=== PATIENT | female | born 1950 | race Caucasian/White ===

== ENCOUNTER 2016-11-29 19:56 | Emergency (ER) | payer MEDICARE, OTHER ==
[2016-11-29] MEDS ORDERED: VERA12TASA PO (20:08)
[2016-11-29] MEDS ORDERED: IBUP600T26 PO (20:08)
[2016-11-29] MEDS ORDERED: ASPI81CH PO (20:08)
[2016-11-29] MEDS ORDERED: LEVO200T4 PO (20:08)
[2016-11-29] MEDS ORDERED: MONT10TA2 PO (20:08)
[2016-11-29] MEDS ORDERED: SYMB16INH INH (20:08)
[2016-11-29] MEDS ORDERED: ALBU17IN INH (20:08)
[2016-11-29] MEDS ORDERED: BACL-67 PO (20:08)
[2016-11-29] MEDS ORDERED: ONE50TAB4 PO (20:08)
[2016-11-29] MEDS ORDERED: OMEP40CA2 PO (20:08)
[2016-11-29 20:41] LABS: MEAN CORPUSCULAR HEMOGLOBIN 33.4 pg (27.0-33.0); MEAN CORPUSCULAR HGB CONC 34.9 g/dl (32.0-36.5); MEAN CORPUSCULAR VOLUME 95.7 fl (80.0-96.0); RED CELL DISTRIBUTION WIDTH 12.2 % (11.5-14.5); WHITE BLOOD COUNT 11.1 K/mm3 (4.0-10.0)
[2016-11-29 20:48] LABS: AMYLASE 30 U/L (25-115)
[2016-11-29] MEDS ORDERED: ZOFR20TA PO (21:44)
[2016-11-29] MEDS ORDERED: NORC1TAB4 PO (21:44)
--- NOTE | 2016-11-29 21:50 | REPUSA ---
Clinical history: Right upper quadrant pain. Findings: The pancreas is limited in visualization secondary to overlying bowel gas, but appears rickey sly unremarkable. The liver demonstrates uniform echotexture and echogenicity, with no mass lesions. The gallbladder contains several gallstones. The common bile duct measures 4 mm and is within normal limits. The right kidney measures 11.3 cm in length and is unremarkable. A simple cyst in the right kidney measures 1.4 cm. There is no ascites. Impression: Cholelithiasis without evidence of acute cholecystitis. Simple right renal cyst.
[2016-11-29] MEDS ORDERED: NORCO 5/325MG TABLET (BULK FOR ED) PO ONE (22:00)
[2016-11-29 22:16] VITALS: BP 127/70
== END 2016-11-29 22:15 | disposition home or self-care (01) ==
LOC: EDBD 19:56 → M ED 20:33
DX: K80.20 Calculus of gallbladder without cholecystitis without obstruction (principal); N28.1 Cyst of kidney, acquired; I10 Essential (primary) hypertension; E07.9 Disorder of thyroid, unspecified; F17.210 Nicotine dependence, cigarettes, uncomplicated; Z79.899 Other long term (current) drug therapy; Z79.82 Long term (current) use of aspirin; Z79.51 Long term (current) use of inhaled steroids

== ENCOUNTER 2017-04-29 08:16 | Outpatient (CLI) | payer MEDICARE, OTHER ==
[~2017-04-29] VITALS: Ht 175.3 cm; Wt 93.9 kg
[~2017-04-29 08:16] MED LIST: ALBU17IN INH; ASPI81CH PO; BACL1TAB9 PO; IBUP-1022 PO; LEVO200T4 PO; MEMA1TAB2 PO; MONT10TA2 PO; NORC1TAB4 PO; OMEP40CA2 PO; ONE50TAB4 PO; ROPI2TAB24 PO; SYMB16INH INH; VERA12TASA PO; ZOFR20TA PO
[2017-04-29] MEDS ORDERED: NS 1,000 ML IV SCH (08:30)
[2017-04-29] MEDS ORDERED: PROPOFOL 500 MG/50 ML VIAL As Ordered ONE (08:59)
[2017-04-29] MEDS ORDERED: LIDOCAINE 2% INJ 100 MG/5 ML SDV (FOR ANES.) As Ordered ONE (09:08)
--- NOTE | 2017-04-29 10:03 | ROOR ---
Patient Name: Analy Massey Procedure Date: 04/29/2017 9:45 AM Date of : 1950 Age: 67 Room: [facility] Gender: Female Note Status: Finalized Procedure: Upper Endoscopy + Biopsies Indications: Heartburn, Exclusion of Aquino's esophagus Providers: Noam Arnold MD Referring MD: DAVE SAXENA DO Requestgage Provider: Medicines: Monitored Anesthesia Care Complications: No immediate complications. Procedure: Pre-Anesthesia Assessment: - The heart rate, respiratory rate, oxygen saturations, blood pressure, adequacy of pulmonary ventilation, and response to care were monitored throughout the procedure. The Endoscope was introduced through the mouth, and advanced to the second part of duodenum. The upper GI endoscopy was accomplished without difficulty. The patient tolerated the procedure well. Findings: The Z-line was irregular and was found 40 cm from the incisors. Multiple biopsies were obtained with cold forceps for evaluation to rule out Aquino's Esophagus randomly at the gastroesophageal junction. A medium-sized hiatal hernia was present. No other significant abnormalities were identified in a careful examination of the stomach. The exam of the duodenum was otherwise normal. Impression: - Z-line irregular, 40 cm from the incisors. - Medium-sized hiatal hernia. - Multiple biopsies were obtained at the gastroesophageal junction. - The examination was otherwise normal. Recommendation: - Patient has a contact number available for emergencies. The signs and symptoms of potential delayed complications were discussed with the patient. Return to normal activities tomorrow. Written discharge instructions were provided to the patient. - High fiber diet. - Discharge patient to home. - Continue present medications. - Await pathology results. - Telephone GI clinic for pathology results in 1 week. - Return to referring physician. - The findings and recommendations were discussed with the patient's family. Noam Arnold MD Noam Arnold MD 04/29/2017 10:02:37 AM This report has been signed electronically. Number of Addenda: 0 Note Initiated On: 04/29/2017 9:45 AM Estimated Blood Loss: Estimated blood loss: none.
--- NOTE | 2017-04-29 10:14 | ROOR ---
Patient Name: Analy Massey Procedure Date: 04/29/2017 9:47 AM Date of : 1950 Age: 67 Room: [facility] Gender: Female Note Status: Finalized Procedure: Total Colonoscopy to Cecum Indications: Screening for colorectal malignant neoplasm Providers: Noam Anrold MD Referring MD: DAVE SAXENA DO Requesting Provider: Medicines: Monitored Anesthesia Care Complications: No immediate complications. Procedure: Pre-Anesthesia Assessment: - The heart rate, respiratory rate, oxygen saturations, blood pressure, adequacy of pulmonary ventilation, and response to care were monitored throughout the procedure. The Colonoscope was introduced through the anus and advanced to the cecum, identified by appendiceal orifice and ileocecal valve. The colonoscopy was performed without difficulty. The patient tolerated the procedure well. The quality of the bowel preparation was good. Findings: The perianal and digital rectal examinations were normal. Non-bleeding internal hemorrhoids were found during retroflexion. The hemorrhoids were small and Grade I (internal hemorrhoids that do not prolapse). Multiple small and large-mouthed diverticula were found in the entire colon. The exam was otherwise without abnormality on direct and retroflexion views. Impression: - Non-bleeding internal hemorrhoids. - Diverticulosis in the entire examined colon. - The examination was otherwise normal on direct and retroflexion views. - No specimens collected. - The exam was otherwise normal to the cecum. Recommendation: - Patient has a contact number available for emergencies. The signs and symptoms of potential delayed complications were discussed with the patient. Return to normal activities tomorrow. Written discharge instructions were provided to the patient. - High fiber diet. - Discharge patient to home. - Continue present medications. - Repeat colonoscopy in 10 years for screening purposes. - Return to referring physician. - The findings and recommendations were discussed with the patient's family. Noam Arnold MD Noam Arnold MD 04/29/2017 10:13:48 AM This report has been signed electronically. Number of Addenda: 0 Note Initiated On: 04/29/2017 9:47 AM Estimated Blood Loss: Estimated blood loss: none.
[2017-04-29 10:43] VITALS: BP 156/90
== END 2017-04-29 10:47 | disposition home or self-care (01) ==
LOC: M OPP 08:16
PROVIDERS: ATTEND Internal Medicine Gastroenterology
DX: Z12.11 Encounter for screening for malignant neoplasm of colon (principal); K64.0 First degree hemorrhoids; K57.30 Diverticulosis of large intestine without perforation or abscess without bleeding; R12 Heartburn; K22.8 Other specified diseases of esophagus; K44.9 Diaphragmatic hernia without obstruction or gangrene; K21.9 Gastro-esophageal reflux disease without esophagitis; I10 Essential (primary) hypertension; E03.9 Hypothyroidism, unspecified; K59.00 Constipation, unspecified; R19.7 Diarrhea, unspecified; M19.90 Unspecified osteoarthritis, unspecified site; G43.909 Migraine, unspecified, not intractable, without status migrainosus; J44.9 Chronic obstructive pulmonary disease, unspecified; G47.30 Sleep apnea, unspecified; R39.89 Other symptoms and signs involving the genitourinary system; R25.2 Cramp and spasm; F17.210 Nicotine dependence, cigarettes, uncomplicated; Z79.82 Long term (current) use of aspirin; Z79.899 Other long term (current) drug therapy; Z83.71 Family history of colonic polyps
CPT/HCPCS: 43239; 88305; G0121

== ENCOUNTER → 2017-07-10 | Outpatient (REF) | payer MEDICARE, OTHER ==
[2017-07-10 12:15] LABS: BASO # 0.1 10^3/uL (0.0-0.2); BASO % 1.2 % (0.0-1.0); EOS # 0.2 10^3/uL (0.0-0.50); EOS % 2.7 % (0.0-3.0); IMMATURE GRANULOCYTE % 0.4 % (0-0); LYMPH # 1.6 10^3/uL (1.5-4.5); LYMPH % 19.2 % (24.0-44.0); MEAN CORPUSCULAR HGB CONC 32.6 g/dl (32.0-36.5); MEAN CORPUSCULAR VOLUME 95.2 fl (80.0-96.0); MONO # 0.8 10^3/uL (0.0-0.8); MONO % 10.3 % (0.0-5.0); NEUTROPHILS # 5.4 10^3/uL (1.8-7.7); NEUTROPHILS % 66.2 % (36.0-66.0); PLATELET COUNT, AUTOMATED 314 10^3/uL (150-450); RED CELL DISTRIBUTION WIDTH 12.6 % (11.5-14.5); WHITE BLOOD COUNT 8.1 10^3/uL (4.0-10.0)
[2017-07-10 12:27] LABS: ALBUMIN 3.5 GM/DL (3.2-5.2); ALBUMIN/GLOBULIN RATIO 1.09 (1.00-1.93); ALKALINE PHOSPHATASE 101 U/L (45-117); ALT/SGPT 30 U/L (12-78); ANION GAP 6 MEQ/L (8-16); AST/SGOT 16 U/L (7-37); BILIRUBIN,TOTAL 0.4 MG/DL (0.2-1.0); BLOOD UREA NITROGEN 18 MG/DL (7-18); CALCIUM LEVEL 8.7 MG/DL (8.8-10.2); CARBON DIOXIDE LEVEL 30 MEQ/L (21-32); CHLORIDE LEVEL 106 MEQ/L (98-107); CHOLESTEROL LEVEL 225 MG/DL (<200); GLOMERULAR FILTRATION RATE > 60.0 (>45); GLUCOSE, FASTING 92 MG/DL (80-110); POTASSIUM SERUM 4.7 MEQ/L (3.5-5.1); SODIUM LEVEL 142 MEQ/L (136-145); THYROXINE (T4) 13.7 UG/DL (4.5-12.0); TOTAL PROTEIN 6.7 GM/DL (6.4-8.2); TRIGLYCERIDES LEVEL 144 MG/DL (<150)
== END ==
LOC: M SFHCCLAY 08:09
PROVIDERS: ATTEND Family Medicine
DX: I10 Essential (primary) hypertension (principal); E78.5 Hyperlipidemia, unspecified; E03.9 Hypothyroidism, unspecified; R05 Cough

== ENCOUNTER → 2017-07-10 | Outpatient (CLI) | payer MEDICARE, OTHER ==
--- NOTE | 2017-07-10 09:13 | REP ---
Clinical: Cough. Technique: PA and lateral. Comparison: 07/27/2015. Findings: Mediastinum and cardiac silhouette are within normal limits and stable. Lung lee demonstrate chronic interstitial changes without focal consolidation, effusion or pneumothorax. Skeletal structures are intact. Impression: Chronic stable changes. No acute cardiopulmonary process identified. Signed by Raymond Weiner MD 07/10/2017 09:04 A
== END ==
LOC: M CLY 08:47
PROVIDERS: ATTEND Family Medicine
DX: R05 Cough (principal); J98.4 Other disorders of lung; I10 Essential (primary) hypertension; E78.5 Hyperlipidemia, unspecified; E03.9 Hypothyroidism, unspecified
CPT/HCPCS: 71020; 80053; 80061; 84436; 84443; 85025; 90662; G0008; G0463

== ENCOUNTER → 2018-01-08 | Outpatient (REF) | payer MEDICARE, OTHER ==
[2018-01-08 11:47] LABS: ALBUMIN 3.6 GM/DL (3.2-5.2); ALKALINE PHOSPHATASE 102 U/L (45-117); ALT/SGPT 23 U/L (12-78); ANION GAP 5 MEQ/L (8-16); AST/SGOT 14 U/L (7-37); BILIRUBIN,TOTAL 0.5 MG/DL (0.2-1.0); BLOOD UREA NITROGEN 13 MG/DL (7-18); CALCIUM LEVEL 8.5 MG/DL (8.8-10.2); CARBON DIOXIDE LEVEL 29 MEQ/L (21-32); CHLORIDE LEVEL 109 MEQ/L (98-107); CREATININE FOR GFR 0.77 MG/DL (0.55-1.30); GLOMERULAR FILTRATION RATE > 60.0 (>45); GLUCOSE, FASTING 93 MG/DL (70-100); POTASSIUM SERUM 4.7 MEQ/L (3.5-5.1); SODIUM LEVEL 143 MEQ/L (136-145); THYROID STIMULATING HORMONE 0.142 uIU/ML (0.358-3.740); TOTAL PROTEIN 6.6 GM/DL (6.4-8.2)
== END ==
LOC: M SFHCCLAY 08:27
DX: E03.9 Hypothyroidism, unspecified (principal); I10 Essential (primary) hypertension
CPT/HCPCS: 84443

== ENCOUNTER → 2018-01-19 | Outpatient (CLI) | payer MEDICARE, OTHER | LOC: M CLY 15:37 | DX: J40 Bronchitis, not specified as acute or chronic (principal); R91.8 Other nonspecific abnormal finding of lung field | CPT/HCPCS: 71046; G0463 ==

== ENCOUNTER → 2018-07-15 | Outpatient (REF) | payer MEDICARE, OTHER | LOC: M SFHCCLAY 13:30 | DX: I10 Essential (primary) hypertension (principal); R53.83 Other fatigue; E03.9 Hypothyroidism, unspecified; Z13.21 Encounter for screening for nutritional disorder ==

== ENCOUNTER → 2018-08-17 | Outpatient (REF) | payer MEDICARE, OTHER ==
[~2018-08-17] MED LIST changes: -ZOFR20TA PO; +ZOFR4TAB16 PO
[2018-08-17 17:22] LABS: BASO # 0.1 10^3/uL (0.0-0.2); BASO % 1.5 % (0.0-1.0); EOS # 0.1 10^3/uL (0.0-0.50); EOS % 1.1 % (0.0-3.0); HEMOGLOBIN 15.9 g/dl (12.0-15.5); LYMPH # 1.5 10^3/uL (1.5-4.5); LYMPH % 18.8 % (24.0-44.0); MEAN CORPUSCULAR HEMOGLOBIN 31.7 pg (27.0-33.0); MEAN CORPUSCULAR HGB CONC 33.1 g/dl (32.0-36.5); MEAN CORPUSCULAR VOLUME 95.6 fl (80.0-96.0); MONO # 0.8 10^3/uL (0.0-0.8); NEUTROPHILS # 5.4 10^3/uL (1.8-7.7); NEUTROPHILS % 68.2 % (36.0-66.0); PLATELET COUNT, AUTOMATED 276 10^3/uL (150-450); RED BLOOD COUNT 5.02 10^6/uL (4.00-5.40); WHITE BLOOD COUNT 7.9 10^3/uL (4.0-10.0)
[2018-08-17 17:27] LABS: ALBUMIN 3.6 GM/DL (3.2-5.2); ALT/SGPT 25 U/L (12-78); BILIRUBIN,TOTAL 0.3 MG/DL (0.2-1.0); BLOOD UREA NITROGEN 16 MG/DL (7-18); CALCIUM LEVEL 8.7 MG/DL (8.8-10.2); CARBON DIOXIDE LEVEL 30 MEQ/L (21-32); CHLORIDE LEVEL 107 MEQ/L (98-107); CHOLESTEROL LEVEL 220 MG/DL (<200); CHOLESTEROL RISK RATIO 4.489 (<5); CREATININE FOR GFR 0.76 MG/DL (0.55-1.30); GLOMERULAR FILTRATION RATE > 60.0 (>39); GLUCOSE, FASTING 88 MG/DL (70-100); HDL CHOLESTEROL 49 MG/DL (>40); LDL CHOLESTEROL 132 MG/DL (<100); NON-HDL-C 171 MG/DL; POTASSIUM SERUM 4.6 MEQ/L (3.5-5.1); SODIUM LEVEL 142 MEQ/L (136-145); THYROXINE (T4) 12.3 UG/DL (4.5-12.0); TOTAL PROTEIN 6.4 GM/DL (6.4-8.2); TRIGLYCERIDES LEVEL 197 MG/DL (<150)
[2018-08-17 17:29] LABS: TOTAL T3 101.9 NG/DL (60.0-181.0)
== END ==
LOC: M SFHCCLAY 11:04
PROVIDERS: ATTEND Family Medicine
DX: K62.5 Hemorrhage of anus and rectum (principal); I10 Essential (primary) hypertension; E03.9 Hypothyroidism, unspecified; E55.9 Vitamin D deficiency, unspecified

== ENCOUNTER → 2019-01-13 | Outpatient (REF) | payer MEDICARE, OTHER ==
[~2019-01-13] MED LIST changes: -ASPI81CH PO; +ASPI81CH49 PO; -NORC1TAB4 PO; +NORC1TAB7 PO
== END ==
LOC: M SFHCCLAY 13:46
PROVIDERS: ATTEND Family Medicine
DX: E03.9 Hypothyroidism, unspecified (principal)
CPT/HCPCS: 84443; G0463

== ENCOUNTER → 2020-01-17 | Outpatient (REF) | payer MEDICARE, OTHER ==
[~2020-01-17] MED LIST changes: +MEMA10TA19 PO; -MEMA1TAB2 PO; -MONT10TA2 PO; +MONT10TA4 PO; -OMEP40CA2 PO; +OMEP40CA97 PO
[2020-01-17 11:48] LABS: BASO # 0.1 10^3/uL (0.0-0.2); BASO % 1.6 % (0.0-1.0); EOS # 0.2 10^3/uL (0.0-0.5); EOS % 2.3 % (0.0-3.0); HEMATOCRIT 51.4 % (36.0-47.0); HEMOGLOBIN 16.9 g/dl (12.0-15.5); LYMPH # 1.2 10^3/uL (1.5-5.0); LYMPH % 16.3 % (24.0-44.0); MEAN CORPUSCULAR HEMOGLOBIN 32.6 pg (27.0-33.0); MEAN CORPUSCULAR HGB CONC 32.9 g/dl (32.0-36.5); MONO # 0.8 10^3/uL (0.0-0.8); MONO % 11.1 % (0.0-5.0); NEUTROPHILS % 68.4 % (36.0-66.0); PLATELET COUNT, AUTOMATED 288 10^3/uL (150-450); RED BLOOD COUNT 5.19 10^6/uL (4.00-5.40); WHITE BLOOD COUNT 7.4 10^3/uL (4.0-10.0)
[2020-01-17 12:29] LABS: ALBUMIN 3.4 GM/DL (3.2-5.2); ALT/SGPT 58 U/L (12-78); BILIRUBIN,TOTAL 0.5 MG/DL (0.2-1.0); BLOOD UREA NITROGEN 18 MG/DL (7-18); CALCIUM LEVEL 8.7 MG/DL (8.8-10.2); CARBON DIOXIDE LEVEL 32 MEQ/L (21-32); CHLORIDE LEVEL 107 MEQ/L (98-107); CREATININE FOR GFR 0.79 MG/DL (0.55-1.30); GLOMERULAR FILTRATION RATE > 60.0 (>39); GLUCOSE, FASTING 79 MG/DL (70-100); POTASSIUM SERUM 4.7 MEQ/L (3.5-5.1); SODIUM LEVEL 143 MEQ/L (136-145); TOTAL PROTEIN 6.4 GM/DL (6.4-8.2)
== END ==
LOC: M SFHCCLAY 08:26
PROVIDERS: ATTEND Family Medicine
DX: I10 Essential (primary) hypertension (principal); E03.9 Hypothyroidism, unspecified

== ENCOUNTER → 2020-02-07 | Outpatient (CLI) | payer MEDICARE, OTHER ==
--- NOTE | 2020-02-07 16:01 | REP ---
PET/CT: HISTORY: Lung nodule COMPARISONS: Comparison CT study of the chest January 18, 2020. TECHNIQUE: 48 minutes following the intravenous injection of a 8.79 mCi dose of F-18 FDG, three-dimensional PET scintigraphy is acquired from the skull base to the proximal thighs. Triplanar noncontrast CT scanning is acquired through the same anatomic range for attenuation correction, and image registration with scan parameters optimized to minimize radiation exposure to the patient. PET scintigraphy and CT datasets were fused and displayed on a workstation with multiplanar and projection display capability. PET/CT FINDINGS: The 10 mm nodule seen in the right lung apex does show hypermetabolic uptake, maximum standard uptake value is 3.21. There is no other abnormal hypermetabolic pulmonary parenchymal uptake. No abnormal hilar or mediastinal timmy uptake is seen. Head and neck soft tissues show a normal variant skeletal muscle uptake. In the abdomen and pelvis, there is normal distribution of tracer to the liver, spleen, gastrointestinal, and genitourinary tracts. No other abnormal hypermetabolic uptake is seen. IMPRESSION: Mildly hypermetabolic uptake is seen in the 10 mm nodule in the right upper lobe. Malignancy cannot be excluded. Followup CT study suggested in 3-4 months. Electronically Signed by Dank Gleason MD 02/07/2020 04:03 P
== END ==
LOC: M PLARAD 12:38
PROVIDERS: ATTEND Internal Medicine Pulmonary Disease
DX: R91.1 Solitary pulmonary nodule (principal)
CPT/HCPCS: 78815; A9552

== ENCOUNTER → 2020-02-21 | Outpatient (REF) | payer MEDICARE, OTHER ==
[2020-02-21 16:38] LABS: C REACTIVE PROTEIN QUANTITATIV 0.54 MG/DL (0.00-0.30); RHEUMATOID FACTOR QUANT < 10.0 IU/ML (<15.0); THYROID STIMULATING HORMONE 0.249 uIU/ML (0.358-3.740)
[2020-02-21 16:44] LABS: VITAMIN B12 LEVEL 1408 PG/ML (247-911)
[2020-02-21 16:45] LABS: FOLATE 22.6 NG/ML (>5.4)
[2020-02-24 01:07] LABS: ANA (HEP2) Negative (.); CYCLIC CITRULLINATED PEPTIDE 14 units (0-19)
== END ==
LOC: M SFHCCLAY 11:35
PROVIDERS: ATTEND Family Medicine
DX: R53.83 Other fatigue (principal); M79.606 Pain in leg, unspecified

== ENCOUNTER → 2020-02-28 | Outpatient (CLI) | payer MEDICARE, OTHER ==
--- NOTE | 2020-02-28 11:15 | PFTRPT ---
Height: 67.50 Inches Weight: 208.00 Lbs BSA: 2.07 Diagnosis: R91.1 DATE OF PROCEDURE: 02/28/2020 ORDERED BY: Dr. Barrios Spirometry: Pre and post bronchodilator study of excellent technical quality. Forced vital capacity reduced. FEV1 out of proportion. Obstructive index is, therefore, reduced. Flow Volume Loop: Expiratory limb of the flow volume loop consistent with very significant flow rate limitation. No significant bronchodilator response identified. Lung Volumes: Total lung capacity elevated. Residual volume consistent with air trapping. Diffusing Capacity: Diffusing capacity significantly reduced but does correct for alveolar volume. Hemoglobin: Hemoglobin acceptable at 15.5. Airway Mechanics: Airway resistance and conductance are normal. IMPRESSION: Severe obstructive ventilatory impairment with underlying air trapping. Diffusing capacity impairment and appropriate for alveolar volume. No bronchodilator response. Please correlate clinically. MTDD
== END ==
LOC: M CARPUL 10:47
PROVIDERS: ATTEND Internal Medicine Pulmonary Disease
DX: R91.1 Solitary pulmonary nodule (principal)

== ENCOUNTER 2020-05-21 01:50 | Emergency (ER) | payer MEDICARE, OTHER ==
[~2020-05-21] VITALS: Ht 172.7 cm; Wt 96.4 kg
[2020-05-21 02:41] LABS: BASO # 0.1 10^3/uL (0.0-0.2); BASO % 0.4 % (0.0-1.0); EOS # 0.1 10^3/uL (0.0-0.5); EOS % 0.4 % (0.0-3.0); HEMATOCRIT 55.1 % (36.0-47.0); HEMOGLOBIN 17.7 g/dl (12.0-15.5); LYMPH # 0.8 10^3/uL (1.5-5.0); LYMPH % 4.2 % (24.0-44.0); MEAN CORPUSCULAR HEMOGLOBIN 31.6 pg (27.0-33.0); MEAN CORPUSCULAR HGB CONC 32.1 g/dl (32.0-36.5); MEAN CORPUSCULAR VOLUME 98.2 fl (80.0-96.0); MONO # 1.4 10^3/uL (0.0-0.8); MONO % 7.4 % (0.0-5.0); NEUTROPHILS # 16.2 10^3/uL (1.5-8.5); NEUTROPHILS % 87.2 % (36.0-66.0); PLATELET COUNT, AUTOMATED 276 10^3/uL (150-450); RED BLOOD COUNT 5.61 10^6/uL (4.00-5.40); WHITE BLOOD COUNT 18.6 10^3/uL (4.0-10.0)
[2020-05-21] MEDS ORDERED: ISOVUE-370 76% 100ML VIAL As Ordered ONE (03:42)
[2020-05-21] MEDS ORDERED: NS 1,000 ML IV ONE (03:45)
[2020-05-21 03:57] LABS: ALBUMIN 3.7 GM/DL (3.2-5.2); BILIRUBIN,DIRECT 0.3 MG/DL (0.0-0.2); BILIRUBIN,TOTAL 0.5 MG/DL (0.2-1.0); TOTAL PROTEIN 7.2 GM/DL (6.4-8.2)
--- NOTE | 2020-05-21 04:42 | REPVR ---
PROCEDURE INFORMATION: Exam: CT Abdomen And Pelvis With Contrast Exam date and time: 05/21/2020 3:51 AM Age: 70 years old Clinical indication: Abdominal pain; Additional info: Periumbilical pain, rule out abdominal infection TECHNIQUE: Imaging protocol: Computed tomography of the abdomen and pelvis with intravenous contrast. Radiation optimization: All CT scans at this facility use at least one of these dose optimization techniques: automated exposure control; mA and/or kV adjustment per patient size (includes targeted exams where dose is matched to clinical indication); or iterative reconstruction. Contrast material: ISO 370; Contrast volume: 100 ml; Contrast route: INTRAVENOUS (IV); COMPARISON: CT ABD/PELVIS W/ CONTRAST - OUTSIDE PRIOR 11/29/2016 4:35 PM FINDINGS: Lungs: Minimal bibasilar fibro-atelectatic change with interstitial coarsening and minimal bullous change. Liver: Normal. No mass. Gallbladder and bile ducts: Gallbladder wall thickening and possible septation at the fundus which may reflect adenomyomatosis. Pancreas: Normal. No ductal dilation. Spleen: Normal. No splenomegaly. Adrenals: Right adrenal nodule measuring 1.7 x 2.1 x 1.8 cm with a Hounsfield measurement of 50. Left adrenal fullness with question of a nodule measuring 12 mm. Kidneys and ureters: Small nonobstructing left renal calculus. There are bilateral renal cysts measuring up to 15 mm on the right which appear to be simple cysts with peripelvic cysts on the left. No follow-up imaging is recommended. Stomach and bowel: There is colonic diverticulosis without evidence of diverticulitis. There is a diverticulum projecting from the proximal duodenal sweep. Appendix: There are no changes of appendicitis. A normal appendix is not seen. Intraperitoneal space: Unremarkable. No free air. No significant fluid collection. Vasculature: There is mild calcification of the abdominal aorta with extension into the iliac arteries. Lymph nodes: Unremarkable. No enlarged lymph nodes. Urinary bladder: Unremarkable as visualized. Reproductive: Status post hysterectomy. Bones/joints: Degenerative disc changes of the lumbar spine with some facet arthropathy. Soft tissues: Unremarkable. IMPRESSION: 1. Colonic diverticulosis without diverticulitis. 2. Minimal bibasilar fibro-atelectatic change with interstitial coarsening and minimal bullous change. 3. Localized gallbladder wall thickening with possible septation at the fundus suggesting adenomyomatosis. 4. Small nonobstructing left renal calculus. 5. Right adrenal nodule measuring 17 x 21 x 18 mm which is unchanged from 11/29/2016. No follow-up is recommended. Lobular fullness of the left adrenal is also similar with no follow-up. 6. Status post hysterectomy. Electronically signed by: Martin Estrada On 05/21/2020 04:42:15 AM
[2020-05-21 06:15] VITALS: BP 149/73
== END 2020-05-21 06:38 | disposition home or self-care (01) ==
LOC: M ED 01:50
DX: R10.9 Unspecified abdominal pain (principal); J44.9 Chronic obstructive pulmonary disease, unspecified; F17.200 Nicotine dependence, unspecified, uncomplicated; Z79.899 Other long term (current) drug therapy; Z79.82 Long term (current) use of aspirin; Z79.51 Long term (current) use of inhaled steroids
CPT/HCPCS: 74177; 80047; 80076; 81001; 83690; 85025; 93041; 96360; 96361; 99285; Q9967

== ENCOUNTER → 2020-05-28 | Outpatient (REF) | payer MEDICARE, OTHER ==
[2020-05-28 11:45] LABS: BASO # 0.1 10^3/uL (0.0-0.2); BASO % 0.9 % (0.0-1.0); EOS # 0.1 10^3/uL (0.0-0.5); EOS % 1.1 % (0.0-3.0); HEMATOCRIT 52.5 % (36.0-47.0); HEMOGLOBIN 16.8 g/dl (12.0-15.5); LYMPH # 1.5 10^3/uL (1.5-5.0); LYMPH % 16.3 % (24.0-44.0); MEAN CORPUSCULAR HEMOGLOBIN 30.4 pg (27.0-33.0); MEAN CORPUSCULAR VOLUME 95.1 fl (80.0-96.0); MONO # 0.9 10^3/uL (0.0-0.8); MONO % 10.2 % (0.0-5.0); NEUTROPHILS # 6.4 10^3/uL (1.5-8.5); NEUTROPHILS % 71.1 % (36.0-66.0); PLATELET COUNT, AUTOMATED 325 10^3/uL (150-450); RED BLOOD COUNT 5.52 10^6/uL (4.00-5.40)
[2020-05-28 12:35] LABS: ALBUMIN 3.4 GM/DL (3.2-5.2); ALT/SGPT 90 U/L (12-78); BILIRUBIN,TOTAL 0.5 MG/DL (0.2-1.0); BLOOD UREA NITROGEN 20 MG/DL (7-18); CALCIUM LEVEL 9.1 MG/DL (8.8-10.2); CARBON DIOXIDE LEVEL 31 MEQ/L (21-32); CHLORIDE LEVEL 105 MEQ/L (98-107); CREATININE FOR GFR 0.72 MG/DL (0.55-1.30); GLOMERULAR FILTRATION RATE > 60.0 (>39); GLUCOSE, FASTING 87 MG/DL (70-100); POTASSIUM SERUM 4.9 MEQ/L (3.5-5.1); SODIUM LEVEL 137 MEQ/L (136-145); TOTAL PROTEIN 6.6 GM/DL (6.4-8.2)
[2020-05-28 12:38] LABS: HEPATITIS B SURFACE ANTIGEN NEGATIVE (NEGATIVE)
[2020-05-28 13:05] LABS: HEPATITIS C VIRUS ABY INDEX 0.1 INDEX (<0.8)
[2020-05-28 13:06] LABS: HEPATITIS B CORE ANTIBODY IGM NEGATIVE (NEGATIVE)
[2020-05-28 13:08] LABS: HEPATITIS A ANTIBODY IGM NEGATIVE (NEGATIVE)
== END ==
LOC: M SFHCCLAY 09:20
PROVIDERS: ATTEND Family Medicine
DX: R10.13 Epigastric pain (principal); R79.89 Other specified abnormal findings of blood chemistry; D72.825 Bandemia
CPT/HCPCS: 80053; 85025; 86705; 86709; 86803; 87340; G0463

== ENCOUNTER → 2020-11-27 | Outpatient (CLI) | payer MEDICARE, OTHER ==
[~2020-11-27] MED LIST changes: +MONT10TA10 PO; -MONT10TA4 PO
--- NOTE | 2020-11-27 13:54 | REP ---
INDICATION: SOLITARY PULMONARY NODULE. COMPARISON: Multiple the latest 08/27/2020 TECHNIQUE: Noncontrast enhanced standard helical technique FINDINGS: Once again, there is a spiculated nodule in the right upper lobe 2.9 x 2.1 by 2 centimeters and has increased in its degree of spiculation. A small developing satellite nodule may also be present. Other scattered asymmetric densities are seen throughout the lung lee which appears stable. Emphysematous changes are again noted status quo. There is no significant change in appearance of the mediastinum or pulmonary keri. There is no significant change in appearance of the imaged upper abdomen or imaged osseous structures. There are no pleural or pericardial effusions. IMPRESSION: Right upper lobe spiculated nodule has increased in size. <Electronically signed by Hemal Pope > 11/27/20 [id number]
== END ==
LOC: M RAD 13:16
PROVIDERS: ATTEND Internal Medicine Pulmonary Disease
DX: R91.1 Solitary pulmonary nodule (principal)

== ENCOUNTER → 2020-12-12 | Outpatient (CLI) | payer MEDICARE, OTHER ==
[~2020-12-12] MED LIST changes: +B12-1CHW PO; +PRESCAP PO
--- NOTE | 2020-12-12 16:01 | RADONC.CN ---
Radiation Oncology Hx/Consult Radiation Oncology Consult Date of Service: December 12, 2020 Pt Identifier Analy Massey is a 70 year old female current smoker with a presumed [id number] NSCLC of the RUL. She is seen for consideration of SBRT to address the lesion. Diagnosis/Treatment History Oncologic History Follows with Dr. Barrios for COPD and HUBERT Noted to have a 1 cm RUL nodule on CT chest from 01/18/20. This was followed with a PET-CT on 02/07/20 which showed uptake the nodule. 08/27/20 CT chest showed growth. Follow up CT chest on 11/27/20 showed the lesion had grown to 2.9 x 2.1 x 2 cm with increased spiculation. Biopsy was deemed infeasible due to extensive emphysematous changes and location posterior to the scapula. She was referred for empiric treatment with SBRT. 02/28/20 PFTs FVC 2.42 71% pred FEV1 0.99 39% pred FEV1/FVC 54% pred DLCO 51% pred Interval History She reports intermittent and sometimes severe HILLMAN. She has minimal SOB at rest. She is able to walk ~ 100 ft (such as in from the parking lot for her visit today) without dyspnea. She has a chronic cough, not very productive. She gets chest pain sometimes from her HILLMAN. She has HUBERT and is compliant with CPAP. She continues to smoke has cut down to 1 ppd. Not ready for an earnest quit attempt today. Does not wear O2 at home or nocturnal. 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 Allergies / Meds Allergies: Coded Allergies: No Known Allergies (Unverified , 05/21/20) Home Meds Reported Medications Mecobalamin (B12 Active) 1,000 Mcg Tab.chew, 1000 MCG PO 12/12/20 Vit A/Vit C/Vit E/Zinc/Copper (Preservision Areds Softgel) 1 Each Capsule, 1 CAP PO DAILY, CAP 12/12/20 Ropinirole HCl (Ropinirole ER) 2 Mg Tab, 2 MG PO DAILY, TAB 04/22/17 Memantine HCl (Memantine HCl) 10 Mg Tab, 10 MG PO BID, TAB 04/22/17 Albuterol Sulfate (Ventolin Hfa) 200 Puff/8 Gm Aers, 1 PUFF INH BID PRN for SHORTNESS OF BREATH, INHALER 11/29/16 Levothyroxine Sodium (LEVOTHYROXINE SODIUM) 200 Mcg Tab, 250 MCG PO DAILY, TAB 11/29/16 Budesonide/Formoterol (Symbicort 160-4.5 Mcg Inhaler) 60 Puff/Inhaler Aers, 2 PUFF INH BID, INHALER 11/29/16 One Daily Adults 50+ (One Daily Adults 50+) 1 Tab Tab, 1 TAB PO DAILY, TAB 11/29/16 Omeprazole (Omeprazole) 40 Mg Cap, 20 MG PO DAILY, CAP 11/29/16 Montelukast Sodium (Montelukast Sodium) 10 Mg Tab, 10 MG PO DAILY, TAB 11/29/16 Ibuprofen (Ibuprofen) 600 Mg Tab, 800 MG PO Q4H PRN for PAIN, #30 TAB 11/29/16 Baclofen (Baclofen) 20 Mg Tab, 20 MG PO DAILY, TAB 11/29/16 Aspirin (Aspirin) 81 Mg Chw, 81 MG PO DAILY, CHW 11/29/16 Discontinued Reported Medications Verapamil HCl (Verapamil ER) 120 Mg Tabcr, 120 MG PO DAILY, TABCR 11/29/16 Review of Systems Constitutional: Reports: Fatigue; Denies: Chills, Fever Eyes: Denies: Pain HEENT: Denies: Head Aches Skin: Denies: Rash Pulmonary: Reports: Dyspnea, Cough, Pleuritic Chest Pain Cardiovascular: Reports: Chest Pain; Denies: Palpitations Gastrointestinal: Denies: Nausea, Abdominal Pain Genitourinary: Denies: Dysuria Hematologic: Denies: Bruising Musculoskeletal: Denies: Neck pain, Back pain Neurological: Denies: Weakness, Numbness Psych: Reports: Mood Normal Vital Signs Ht 68" Wt 204 lbs BMI 31 T 97.1 P 69 RR 18 BP 120/62 O2 93% Pain 0 Fatigue 0 Diagnostic and Laboratory Diagnostic Review Radiologic images, relevant labs and pathology reports were personally reviewed and discussed with Ms. Massey. Assessment and Plan Impression Ms. Massey is a 70 year old female with a history of current smoker with a presumed [id number] NSCLC of the RUL. She is seen for consideration of SBRT to address the lesion. Stage NSCLC [id number] stage IA3 Performance Status ECOG 1 Plan We had an extensive discussion with Ms. Massey regarding the diagnosis at hand and available therapeutic options. She has a growing RUL spiculated lesion now ~ 3 cm in greatest dimension. It had previously proven hypermetabolic on PET-CT when it was only 1 cm in extent. Thus this is with great certainty a lung cancer. It is not amenable to biopsy either bronchoscopically or percutaneously given the location and the risks of pneumothorax from her extensive emphysema. I recommend that we proceed with SBRT to this lesion. I would give 60 Gy in 5 fractions with a 4D/ITV planning approach and free-breathing gated delivery. We would use DCA. We discussed the logistics of receiving radiation therapy in detail including the need for a 1-time planning session. This can occur next week. We reviewed the side effects of treatment including fatigue, chest wall toxicity, fibrosis and pneumonitis. After discussing the risks, benefits and alternatives to radiation therapy, Ms. Massey was amenable to pursuing radiotherapy. All questions were answered to the patient's satisfaction. We instructed the patient that if there were any questions,concerns or changes in clinical status in the interim to contact us. Recommendations SBRT to the growing spiculated and PET-CT avid RUL lesion 60 Gy in 5 fractions Simulation in the coming week Billing Statement Total time of [35] minutes was spent preparing for the visit [2], obtaining HPI [6], examining the patient [2], reviewing diagnostic tests [3], discussing management options [11], coordinating care [3], and writing this note [8]. DEBBIE ESCAMILLA MD December 12, 2020 16:01
== END ==
LOC: M ONCR 13:52
PROVIDERS: ATTEND General Practice
DX: C34.11 Malignant neoplasm of upper lobe, right bronchus or lung (principal)

== ENCOUNTER 2020-12-25 14:02 | Outpatient (RCR) | payer MEDICARE, OTHER ==
[~2020-12-25 14:02] MED LIST changes: +OMEP40CA4 PO; -OMEP40CA97 PO
== END 2021-01-07 ==
LOC: M ONCR 14:02
PROVIDERS: ATTEND General Practice
DX: C34.11 Malignant neoplasm of upper lobe, right bronchus or lung (principal)

== ENCOUNTER 2021-01-18 14:07 | Outpatient (RCR) | payer MEDICARE, OTHER | END 2021-02-06 | LOC: M ONCR 14:07 | PROVIDERS: ATTEND General Practice | DX: C34.11 Malignant neoplasm of upper lobe, right bronchus or lung (principal) ==

== ENCOUNTER → 2021-01-21 | Outpatient (REF) | payer MEDICARE, OTHER ==
[2021-01-21 18:16] LABS: BASO # 0.1 10^3/uL (0.0-0.2); BASO % 1.3 % (0.0-1.0); EOS # 0.1 10^3/uL (0.0-0.5); EOS % 2.1 % (0.0-3.0); HEMATOCRIT 51.2 % (36.0-47.0); HEMOGLOBIN 16.5 g/dl (12.0-15.5); LYMPH # 1.1 10^3/uL (1.5-5.0); LYMPH % 16.6 % (24.0-44.0); MEAN CORPUSCULAR HEMOGLOBIN 31.7 pg (27.0-33.0); MEAN CORPUSCULAR HGB CONC 32.2 g/dl (32.0-36.5); MEAN CORPUSCULAR VOLUME 98.5 fl (80.0-96.0); MONO # 0.7 10^3/uL (0.0-0.8); MONO % 10.1 % (2.0-8.0); NEUTROPHILS # 4.7 10^3/uL (1.5-8.5); NEUTROPHILS % 69.6 % (36.0-66.0); PLATELET COUNT, AUTOMATED 278 10^3/uL (150-450); WHITE BLOOD COUNT 6.7 10^3/uL (4.0-10.0)
[2021-01-21 18:49] LABS: ALBUMIN 3.5 GM/DL (3.2-5.2); ALT/SGPT 24 U/L (12-78); BILIRUBIN,TOTAL 0.5 MG/DL (0.2-1.0); BLOOD UREA NITROGEN 18 MG/DL (7-18); CALCIUM LEVEL 8.8 MG/DL (8.8-10.2); CARBON DIOXIDE LEVEL 34 MEQ/L (21-32); CHLORIDE LEVEL 106 MEQ/L (98-107); CREATININE FOR GFR 0.73 MG/DL (0.55-1.30); GLOMERULAR FILTRATION RATE > 60.0 (>39); GLUCOSE, FASTING 81 MG/DL (70-100); POTASSIUM SERUM 4.8 MEQ/L (3.5-5.1); SODIUM LEVEL 142 MEQ/L (136-145); TOTAL PROTEIN 6.4 GM/DL (6.4-8.2); VITAMIN B12 LEVEL 704 PG/ML (247-911)
== END ==
LOC: M SFHCCLAY 11:41
PROVIDERS: ATTEND Family Medicine
DX: E03.9 Hypothyroidism, unspecified (principal); I10 Essential (primary) hypertension; D64.9 Anemia, unspecified
CPT/HCPCS: 80053; 82607; 84443; 85025; G0463

== ENCOUNTER → 2021-04-10 | Outpatient (CLI) | payer MEDICARE, OTHER ==
[2021-04-10 14:15] LABS: ALBUMIN 3.5 GM/DL (3.2-5.2); ALT/SGPT 82 U/L (12-78); BILIRUBIN,TOTAL 0.5 MG/DL (0.2-1.0); BLOOD UREA NITROGEN 24 MG/DL (7-18); CALCIUM LEVEL 9.4 MG/DL (8.8-10.2); CARBON DIOXIDE LEVEL 34 MEQ/L (21-32); CHLORIDE LEVEL 104 MEQ/L (98-107); CREATININE FOR GFR 0.86 MG/DL (0.55-1.30); GLOMERULAR FILTRATION RATE > 60.0 (>39); GLUCOSE, FASTING 87 MG/DL (70-100); POTASSIUM SERUM 4.3 MEQ/L (3.5-5.1); SODIUM LEVEL 140 MEQ/L (136-145); TOTAL PROTEIN 6.5 GM/DL (6.4-8.2)
== END ==
LOC: M ONCR 13:16
PROVIDERS: ATTEND General Practice
DX: C34.11 Malignant neoplasm of upper lobe, right bronchus or lung (principal)

== ENCOUNTER → 2021-04-17 | Outpatient (CLI) | payer MEDICARE, OTHER ==
[~2021-04-17] MED LIST changes: +ISOVUE-370 76% 100ML VIAL As Ordered ONE
--- NOTE | 2021-04-17 14:20 | REP ---
INDICATION: LUNG CA RESTAGING. COMPARISON: Most recent comparison chest CT study is from November 27, 2020. Comparison studies from August 27, 2020, June 01, 2020, and January 18, [address] radiation therapy treatment planning study from December 25, 2020 is also reviewed. TECHNIQUE: Helical scanning is acquired and 3 mm axial images re-formatted. Coronal and sagittal MPR and coronal MIP images are provided. FINDINGS: Previously noted spiculated right apical lesion is again seen decreased in size from the December 25, 2020 and November 27, 2020 prior studies. The lesion measured 2.5 cm in greatest oblique right to left dimension on December 25, 2020. Its current a greatest transverse dimension is 13 mm. On sagittal multiplanar re-formation scan images the lesion still measures 2 cm in craniocaudal span. This dimension was 3.1 cm on November 27, 2020. There are extensive emphysematous changes again noted in the upper lobes bilaterally. Mild linear fibrosis is visible in the lower lobes. No new infiltrate is seen. No new pulmonary nodule or mass lesion is observed. There is a small bolus again visualized in the right middle lobe. There is no evidence of mediastinal mass or adenopathy. No hilar adenopathy is observed. There is stable fullness in the right adrenal gland. Visualized upper abdominal structures are otherwise unremarkable. Left ventricular myocardial hypertrophy is noted. Vascular calcification is observed. IMPRESSION: The spiculated it right upper lobe pulmonary nodule has decreased in size. Advanced emphysematous changes are again noted. Findings otherwise unchanged. <Electronically signed by Tim Gleason > 04/17/21 [id number]
== END ==
LOC: M RAD 13:18
PROVIDERS: ATTEND General Practice
DX: R91.1 Solitary pulmonary nodule (principal)
CPT/HCPCS: 71260; Q9967

== ENCOUNTER → 2021-04-19 | Outpatient (CLI) | payer MEDICARE, OTHER ==
[~2021-04-19] MED LIST changes: -ISOVUE-370 76% 100ML VIAL As Ordered ONE
--- NOTE | 2021-04-19 13:28 | RADONC ---
Radiation Oncology Hx/FUP Radiation Oncology Hx/FUP Date of Service: Apr 19, 2021 Pt Identifier Analy Massey is a 71 year old female current smoker with a presumed [id number] NSCLC of the RUL. She completed SBRT for this 60 Gy in 5 fractions from 01/14/21- 01/18/21. She is here for surveillance and survivorship care. Diagnosis/Treatment History Oncologic History Follows with Dr. Barrios for COPD and HUBERT Noted to have a 1 cm RUL nodule on CT chest from 01/18/20. This was followed with a PET-CT on 02/07/20 which showed uptake the nodule. 08/27/20 CT chest showed growth. Follow up CT chest on 11/27/20 showed the lesion had grown to 2.9 x 2.1 x 2 cm with increased spiculation. Biopsy was deemed infeasible due to extensive emphysematous changes and location posterior to the scapula. She was referred for empiric treatment with SBRT. 01/14/21-01/18/21 SBRT to the lesion 60 Gy in 5 fractions Recent Data: 04/17/21 CT chest FINDINGS: Previously noted spiculated right apical lesion is again seen decreased in size from the December 25, 2020 and November 27, 2020 prior studies. The lesion measured 2.5 cm in greatest oblique right to left dimension on December 25, 2020. Its current a greatest transverse dimension is 13 mm. On sagittal multiplanar re-formation scan images the lesion still measures 2 cm in craniocaudal span. This dimension was 3.1 cm on November 27, 2020. There are extensive emphysematous changes again noted in the upper lobes bilaterally. Mild linear fibrosis is visible in the lower lobes. No new infiltrate is seen. No new pulmonary nodule or mass lesion is observed. There is a small bolus again visualized in the right middle lobe. There is no evidence of mediastinal mass or adenopathy. No hilar adenopathy is observed. There is stable fullness in the right adrenal gland. Visualized upper abdominal structures are otherwise unremarkable. Left ventricular myocardial hypertrophy is noted. Vascular calcification is observed. IMPRESSION: The spiculated it right upper lobe pulmonary nodule has decreased in size. Advanced emphysematous changes are again noted. Findings otherwise unchanged. Interval History Analy reports stable HILLMAN. She underwent cardiac workup for left sided atypical chest pain which was negative. Recently moved to [place]. Walker has been helpful for her mobility as her endurance when walking is limited. Continues to smoke. No quit desire today. She has no additional complaints today other than she would like to transfer her handicap parking sticker to her new town and needs a note to the necessity thereof. 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 Allergies / Meds Allergies: Coded Allergies: No Known Allergies (Unverified , 05/21/20) Home Meds Reported Medications Mecobalamin (B12 Active) 1,000 Mcg Tab.chew, 1000 MCG PO 12/12/20 Vit A/Vit C/Vit E/Zinc/Copper (Preservision Areds Softgel) 1 Each Capsule, 1 CAP PO DAILY, CAP 12/12/20 Ropinirole HCl (Ropinirole ER) 2 Mg Tab, 2 MG PO DAILY, TAB 04/22/17 Memantine HCl (Memantine HCl) 10 Mg Tab, 10 MG PO BID, TAB 04/22/17 Albuterol Sulfate (Ventolin Hfa) 200 Puff/8 Gm Aers, 1 PUFF INH BID PRN for SHORTNESS OF BREATH, INHALER 11/29/16 Levothyroxine Sodium (LEVOTHYROXINE SODIUM) 200 Mcg Tab, 250 MCG PO DAILY, TAB 11/29/16 Budesonide/Formoterol (Symbicort 160-4.5 Mcg Inhaler) 60 Puff/Inhaler Aers, 2 PUFF INH BID, INHALER 11/29/16 One Daily Adults 50+ (One Daily Adults 50+) 1 Tab Tab, 1 TAB PO DAILY, TAB 11/29/16 Omeprazole (Omeprazole) 40 Mg Cap, 20 MG PO DAILY, CAP 11/29/16 Montelukast Sodium (Montelukast Sodium) 10 Mg Tab, 10 MG PO DAILY, TAB 11/29/16 Ibuprofen (Ibuprofen) 600 Mg Tab, 800 MG PO Q4H PRN for PAIN, #30 TAB 11/29/16 Baclofen (Baclofen) 20 Mg Tab, 20 MG PO DAILY, TAB 11/29/16 Aspirin (Aspirin) 81 Mg Chw, 81 MG PO DAILY, CHW 11/29/16 Review of Systems Review of Systems Constitutional: Denies: Fatigue Eyes: Denies: Pain HEENT: Denies: Head Aches Pulmonary: Reports: Dyspnea, Cough Cardiovascular: Denies: Chest Pain Gastrointestinal: Denies: Abdominal Pain Musculoskeletal: Denies: Neck pain Neurological: Denies: Weakness, Numbness Psych: Reports: Mood Normal Physical Examination Vital Signs Wt 204 lbs T 98 P 79 RR 20 BP 140/78 O2 99% Pain 0 Fatigue 1 General Exam: Alert, Cooperative, No Acute Distress Eye Exam: PERRLA, EOMI ENT EXAM: Atraumatic Neck Exam: Supple Chest Exam: Clear to auscultation, Normal air movement (Quiet breath sounds t hroughout) Heart Exam: Rate Normal, Regular Rhythm Abdomen Exam: Soft Extremity Exam: Negative: Edema Skin Exam: Nl turgor and temperature Neuro Exam: Normal Gait, Normal Speech, Cranial Nerves 3-12 NL Psych Exam: Mental status NL Diagnostic and Laboratory Diagnostic Review Radiologic images, relevant labs and pathology reports were personally reviewed and discussed with Ms. Massey. Assessment and Plan Impression Assessment Ms. Massey is a 71 year old female with a history of current smoker with a presumed [id number] NSCLC of the RUL. She completed SBRT for this 60 Gy in 5 fractions from 01/14/21-01/18/21. She is here for surveillance and survivorship care. She continues to smoke no desire to quit. Her CT chest shows excellent interval response and no new lesions of concern in the chest. Therefore a [address] would be appropriate. I will see her in 6 months with the scan. I furnished her with a note supporting her handicap parking tag application [facility] [employer] [facility] Performance Status ECOG 1 Plan [address] chest Ms. Massey was encouraged to call with questions or concerns in the interim period. Billing Statement Total time of [25] minutes was spent preparing for the visit [2], obtaining HPI [5], examining the patient [2], reviewing diagnostic tests [3], discussing management options [5], coordinating care [2], and writing this note [6]. DEBBIE ESCAMILLA MD Apr 19, 2021 13:27
== END ==
LOC: M ONCR 10:33
PROVIDERS: ATTEND General Practice
DX: C34.11 Malignant neoplasm of upper lobe, right bronchus or lung (principal); F17.210 Nicotine dependence, cigarettes, uncomplicated; Z79.82 Long term (current) use of aspirin; Z79.890 Hormone replacement therapy; Z79.899 Other long term (current) drug therapy; Z92.3 Personal history of irradiation

== ENCOUNTER → 2021-05-23 | Outpatient (REF) | payer MEDICARE, OTHER ==
[2021-05-23 16:54] LABS: CHOLESTEROL RISK RATIO 3.584 (<5)
== END ==
LOC: M LABDRAWC 15:51
PROVIDERS: ATTEND Physician Assistant
DX: Z13.220 Encounter for screening for lipoid disorders (principal)

== ENCOUNTER 2021-07-03 18:12 | Emergency (ER) | payer MEDICARE, OTHER ==
[~2021-07-03] VITALS: Ht 172.7 cm; Wt 91.8 kg
[~2021-07-03 18:12] MED LIST changes: +VERA120T67 PO; -VERA12TASA PO
--- OUTSIDE RECORDS SUMMARY | 2021-07-03 18:19 | CCD ---
Author Author Nilo Felipe MD [facility] Organization Nilo Felipe MD [facility] Address [address] [address] Phone Care Team Providers Care Cotton Converter Name Role Phone Matteo LEMON, HONEY, Nilo To Unavailable [phone] Anthonyjosefina DO Ori Jerome PP [phone] Reason for Referral No Reason for Referral Recorded Problems Includes: Active, inactive, and resolved Problems All Visits Onset Date - Time Resolved Date - Time Provider Co ndition Status Superficial Injury - Abrasion of Cornea 05/30/2019 - 12:00AM 02/02/2020 - 8:11AM Nilo Felipe MD, FACS Resolved Conjunctivitis Acute Atopic 04/04/2016 - 12:00AM Nilo Felipe MD, FACS Inactive Senile ectropion of right lower eyelid 10/10/2015 - 12:00AM Nilo Pascual MD, FACS Active Senile ectropion of left lower eyelid 10/10/2015 - 12:00AM Nilo Felipe MD, FACS Active Vitreous Disorders Degeneration 10/10/2015 - 12:00AM Nilo Felipe MD, FACS Active Cataract Senile Cortical Right 08/14/2015 - 12:00AM Nilo Felipe MD, FACS Active Note: Unchanged Cataract Senile Nuclear 08/14/2015 - 12:00AM Nilo Felipe MD, FACS Active Note: Unchanged Conjunctivitis Chronic Allergic 01/29/2015 - 12:00AM Nilo Felipe MD, FACS Active Note: Unchanged Eyelid Disorder 01/29/2015 - 12:00AM Nilo mayen MD, FACS Active Note: Unchanged Conjunctivitis Acute Both Eyes 11/29/2013 - 12:00AM Nilo Felipe MD, FACS Inactive Note: Unchanged Dermatochalasis Both Eyelids 02/08/2013 - 12:00AM Nilo Felipe MD, FACS Active Note: Unchanged Ectropion Both Eyelids 02/08/2013 - 12:00AM Nilo Avila MD, FACS Inactive Note: Worsening Eversion of Lacrimal Punctum Both Lower Eyelids 02/08/2013 - 12: 00AM Nilo Felipe MD, FACS Active Note: Worsening Borderline Glaucoma Open Angle with Borderline Finding s Both Eyes 02/08/2013 - 12:00AM Nilo Felipe MD, FACS Active Note: Unchanged Tobacco Use 02/08/2013 - :00AM Nilo Felipe MD, FACS Active Note: Unchanged Dry Eye Syndrome Both Eyes 02/08/2013 - 12:00AM Nilo Felipe MD, FACS Active Note: Worsening Vitreous Floaters Both Eyes 02/08/2013 - 12:00AM Nilo Felipe MD, FACS Inactive Note: Unchanged Plan of Treatment Pending Tests Order Diagnosis Results Due Ordering Provi avery Testing Ordered - OCT OCT DISC Open angle with sade rderline findings, low risk, bilateral 02/18/21 Nilo Felipe MD, FACS Findings Encounter Date Ordered intervention and counseling on cessation of to bacco use, 3-10 minutes 8 Month Follow-Up with Nilo Felipe MD, FACS 02/02/2020 Ordered intervention and counseling on cessation of to bacco use, 3-10 minutes 3day followup with Nilo Felipe MD, FACS 06/02/2019 Ordered intervention and counseling on cessation of to bacco use, 3-10 minutes TRIAGE NON URGENT LEVEL 1 with Nilo Felipe MD, FACS 05/30/2019 Ordered intervention and counseling on cessation of to bacco use, 3-10 minutes 1 Year Follow-Up with Nilo Felipe MD, FACS 04/05/2018 Ordered intervention and counseling on cessation of to bacco use, 3-10 minutes 6 Month Follow-Up with Nilo Felipe MD, FACS 08/14/2015 Ordered intervention and counseling on cessation of to bacco use, 3-10 minutes 6 Month Follow-Up with Visual Field with Nilo Felipe MD, FACS 01/29/2015 Ordered intervention and counseling on cessation of to bacco use, 3-10 minutes 6 MO FU WITH OCT DISC with Nilo Felipe MD, FACS 11/29/2013 Ordered intervention and counseling on cessation of to bacco use, 3-10 minutes 6 Month Follow-Up with Nilo Felipe MD, FACS 02/08/2013 Assessments Includes: Assessments for all patient encounters Findings Encounter Date Dry eye syndrome of both eyes 8 Month Follow-Up with Jerome Felipe MD, FACS 02/02/2020 Nuclear senile cataract 8 Month Follow-Up with Nilo Kim MD, FACS 02/02/2020 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 8 Month Fo llow-Up with Niol Felipe MD, FACS 02/02/2020 Right cortical senile cataract 8 Month Follow-Up with Nilo Felipe MD, FACS 02/02/2020 Vitreous degeneration 8 Month Follow-Up with Nilo Pascual MD, FACS 02/02/2020 Corneal abrasion 3day followup with Nilo Cano, FACS 06/02/2019 Corneal abrasion TRIAGE NON URGENT LEVEL 1 with Nilo Felipe MD, FACS 05/30/2019 Dry eye syndrome of both eyes 1 Year Follow-Up with Maury Felipe MD, FACS 04/05/2018 Nuclear senile cataract 1 Year Follow-Up with Nilo Faria MD, FACS 04/05/2018 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 1 Year Fol low-Up with Nilo Felipe MD, FACS 04/05/2018 Right cortical senile cataract 1 Year Follow-Up with Jerome Felipe MD, FACS 04/05/2018 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 VISUAL FIE LD 24-2 with Nilo Felipe MD, FACS 04/23/2017 Dry eye syndrome of both eyes 10 Month Follow-Up with Nilo Felipe MD, FACS 01/19/2017 Nuclear senile cataract 10 Month Follow-Up with Nilo Newman MD, FACS 01/19/2017 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 10 Month F ollow-Up with Nilo Felipe MD, FACS 01/19/2017 Right cortical senile cataract 10 Month Follow-Up with Nilo Felipe MD, FACS 01/19/2017 Acute atopic conjunctivitis 9 Month Follow-Up with Nilo Felipe MD, FACS 04/04/2016 Chronic allergic conjunctivitis 9 Month Follow-Up with Nilo Felipe MD, FACS 04/04/2016 Dry eye syndrome of both eyes 9 Month Follow-Up with Jerome Felipe MD, FACS 04/04/2016 Nuclear senile cataract 9 Month Follow-Up with Nilo Kim MD, FACS 04/04/2016 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 9 Month Fo llow-Up with Nilo Felipe MD, FACS 04/04/2016 Right cortical senile cataract 9 Month Follow-Up with Nilo Felipe MD, FACS 04/04/2016 Dry eye syndrome of both eyes 6 Month Follow-Up with Jerome Felipe MD, FACS 08/14/2015 Nuclear senile cataract 6 Month Follow-Up with Nilo Kim MD, FACS 08/14/2015 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 6 Month Fo llow-Up with Nilo Felipe MD, FACS 08/14/2015 Other chronic allergic conjunctivitis of both eyes 6 Month Follow-Up with Nilo Felipe MD, FACS 08/14/2015 Right cortical senile cataract 6 Month Follow-Up with Nilo Felipe MD, FACS 08/14/2015 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 OCT DISC w ith Nilo Felipe MD, FACS 07/27/2015 Chronic allergic conjunctivitis of both eyes 6 Month Follow-Up with Visual Field with Nilo Felipe MD, FACS 01/29/2015 Dermatochalasis of both eyes upper and lower lids 6 M onth Follow-Up with Visual Field with Nilo Felipe MD, FACS 01/29/2015 Dry eye syndrome of both eyes 6 Month Follow-Up with V isual Field with Nilo Felipe MD, FACS 01/29/2015 Ectropion of both eyes 6 Month Follow-Up with Visua l Field with Nilo Pascual MD, FACS 01/29/2015 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 6 M onth Follow-Up with Visual Field with Nilo Felipe MD, FACS 01/29/2015 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 6 Month Follow-Up with Visual Field with Nilo Felipe MD, FACS 01/29/2015 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 6 Month Fo llow-Up with Visual Field with Nilo Felipe MD, FACS 01/29/2015 Vitreous floaters in both eyes 6 Month Follow-Up with Visual Field with Nilo Felipe MD, FACS 01/29/2015 Acute conjunctivitis of both eyes - secondary to ectr opion 6 MO FU WITH OCT DISC with Nilo Felipe MD, FACS 11/29/2013 Dermatochalasis of both eyes 6 MO FU WITH OCT DISC wit h Nilo Felipe MD, FACS 11/29/2013 Dry eye syndrome of both eyes 6 MO FU WITH OCT DISC wi th Nilo Felipe MD, FACS 11/29/2013 Ectropion of both eyes 6 MO FU WITH OCT DISC with Nilo Avila MD, FACS 11/29/2013 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 6 M O FU WITH OCT DISC with Nilo Felipe MD, FACS 11/29/2013 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 6 MO FU WI TH OCT DISC with Nilo Felipe MD, FACS 11/29/2013 Vitreous floaters in both eyes 6 MO FU WITH OCT DISC w ith Nilo Felipe MD, FACS 11/29/2013 Dermatochalasis of both eyes 6 Month Follow-Up with Maury Felipe MD, FACS 02/08/2013 Dry eye syndrome of both eyes 6 Month Follow-Up with Jerome Felipe MD, FACS 02/08/2013 Ectropion of both eyes 6 Month Follow-Up with Nilo Faria MD, FACS 02/08/2013 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 6 M onth Follow-Up with Nilo Felipe MD, FACS 02/08/2013 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 6 Month Fo llow-Up with Nilo Felipe MD, FACS 02/08/2013 Vitreous floaters in both eyes 6 Month Follow-Up with Nilo Felipe MD, FACS 02/08/2013 Instructions Instructions not supported for this document typeNo Instructions Recorded Medical Equipment - Implanted Devices Includes: Current and historical DevicesNo Medical Equipment Recorded Medications Includes: Current and historical Medications Current Medications (continue as prescribed) Omeprazole 20 MG Capsule, delayed-release 01/29/2015 Provider: Diagnosis: Montelukast Sodium 10 MG Tablet 01/29/2015 Provider : Diagnosis: Namenda 10 MG Tablet 01/29/2015 Provider: Diagnosis: One-A-Day Essential Tablet 01/29/2015 Provider: Diagnosis: Symbicort 160-4.5 MCG/ACT Aerosol 01/29/2015 Provid er: Diagnosis: Ventolin HFA 108 (90 Base) MCG/ACT Aerosol, solution 015 Provider: Diagnosis: Synthroid 225 MG Tablet 01/29/2015 Provider: Diagnosis: Verapamil HCl 120 MG Tablet 01/29/2015 Provider: Diagnosis: Baclofen 20 MG Tablet 01/29/2015 Provider: Diagnosis: Aspirin 81 MG OR TABS 11/29/2013 Provider: Diagnosis: Past Medications on file Ocuflox 0.3% Ophthalmic Solution 05/30/2019 - 02/02/2020 Pro vider: Nilo Felipe MD, FACS Diagnosis: Inj conjunctiva and corneal abrasion w/o fb, left eye, init One drop four times a day in the left eye Lotemax 0.5 % Gel 04/04/2016 - 02/02/2020 Provider: Nilo Felipe MD, FACS Diagnosis: Acute atopic conjunc tivitis, bilateral One drop in each eye in the morning Alrex 0.2 % Suspension 04/04/2016 - 02/02/2020 Provider: Nilo Felipe MD, FACS Diagnosis: Acute atopic conjunc tivitis, bilateral One drop in each eye in the morning Synthroid 75 MCG OR TABS 11/29/2013 - 01/29/2015 Provider: Diagnosis: Synthroid 75 MCG OR TABS 02/08/2013 - 11/29/2013 Provider: Diagnosis: Aricept 10 MG OR TABS 02/08/2013 - 11/29/2013 Provider: Diagnosis: Medications Administered Includes: Administered Medications in patient's chartNo Administered Medications Recorded Vital Signs Includes: Vital Signs from 06/13/2020 through 06/13/2021No Vital Signs Recorded For Specified Dates Results Includes: Results from 06/13/2020 through 06/13/2021No Results Recorded For Specified Dates History of Present Illness History of Present Illness not supported for this document typeNo History of Present Illness Recorded Social History Description Last Updated Not using drugs 02/02/2020 Alcohol 05/30/2019 Alcohol use 1-2 drinks x month 08/14/2015 Tobacco use x 35+ years 08/14/2015 Moderate cigarette smoker 02/08/2013 Smoking status : Current everyday smoker 02/08/2013 Procedures and Surgical History Surgical History Last Updated No surgical / procedural history 02/02/2020 Medical History Includes: Medical History in patient's chart Description Last Updated History of essential hypertension 08/14/2015 Reported medical history : Sleep Apnea with CPAP, GERD , Allergies 01/29/2015 History of arthritis 11/29/2013 History of hypothyroidism 11/29/2013 No recent change in medical history 11/29/2013 Currently wearing eyeglasses 02/08/2013 Family History Includes: Family History in patient's chart Description Last Updated Paternal history of heart disease 06/02/2019 Paternal history of strabismus 06/02/2019 Paternal history of stroke/cerebrovascular accident Sororal history of glaucoma 06/02/2019 Family history of macular degeneration 08/14/2015 Family history of blindness 01/29/2015 Family history of cataract 01/29/2015 Family history of glaucoma 01/29/2015 Sororal history of diabetes mellitus 01/29/2015 Review of Systems Review of Systems not supported for this document typeNo Review of Systems Recorded Mental Status Mental Status not supported for this document type Description Oriented to time, place, and person Functional Status Functional Status not supported for this document typeNo Functional Status Recorded Physical Exam Physical Exam not supported for this document typeNo Physical Exam Recorded Immunizations Includes: Immunizations in patient's chartNo Immunizations Recorded Allergies Includes: Active, inactive, and resolved AllergiesNo Known Allergies Encounters Includes: Encounters from 06/13/2020 through 06/13/2021No Encounters Recorded For Specified Dates Insurance Includes: Active Insurance Policies Plan Name Member ID Group # Subscriber Relationship Effective Da blue 1 - Medicare Part [facility] ([facility] [id number] Analy H Badour Self 2 - [employer] /PRIOR AUTHS NEEDED [id number] Rosa M gita H Badour Self Advance Directives Includes: Current Advance DirectivesNo Advance Directives Recorded Health Concerns Includes: Active Health ConcernsNo Active Health Concerns Recorded Goals Includes: Active GoalsNo Active Goals Recorded Interventions Includes: Interventions for active GoalsNo Interventions Recorded Evaluations & Outcomes Includes: Evaluations & Outcomes for active GoalsNo Outcomes Recorded
--- OUTSIDE RECORDS SUMMARY | 2021-07-03 18:19 | CCD | Continuity of Care Document ---
Author Author Analy BARRIOS MD Organization Unknown Address [address] [place] [address] Phone [phone] Care Team Providers Care Power Originator Name Role Phone Nicho Alvarez M.D. [facility] [phone] Problems Active Problems Provider Date Cough Suleman Barrios MD Onset: 05/01/2011 Obesity Suleman Barrios MD Onset: 05/01/2011 Emphysematous bronchitis Suleman Barrios MD Onset: 12/03/19 11 Obstructive sleep apnea syndrome Suleman Barrios MD Onset: 12/02/2010 Tobacco user Suleman Barrios MD Onset: 12/02/2010 Chronic rhinitis Suleman Barrios MD Onset: 12/02/2010 Social History Type Date Description Comments Sex Unknown Tobacco Use Start: 08/10/77 Patient is a current smoker, smo kes every day 2-1 ppd Smoking Status Reviewed: 06/12/21 Patient is a current smoker, smokes every day 2-1 ppd Allergies and adverse reactions Description No Known Drug Allergies Medications Active Medications SIG Qnty Indications Ordering Provide r Date Prednisone 10mg Tablets 40mg po qd x 4 days then 30mg qd x 4 days then 20mg qd x 4 days then 10mg qd x 4 days and stop 40tabs Suleman Barrios MD 06/12/2021 Symbicort 160-4.5mcg/Act Aerosol Inhale Two Puffs By Mouth Twice A Day 30.6gm Suleman Barrios MD 10/20/2020 Proair HFA 108(90Base) mcg/Act Aer osol 2 puffs four times a day as needed 25.5gm Suleman Barrios MD 10/12/2020 Ipratropium [place]/Albuterol Sulfate 0.5-2.5(3)mg/3ML Solution four times a day 540ml J44.9 Suleman celestin MD 09/11/2020 Spiriva Respimat 2.5mcg/Act Aeroso l inhale two puffs by mouth every day 12gm Suleman Barrios MD 12/14/2018 Aspirin 81mg Tablets 1 tabs by mouth every day Unknown Omeprazole Magnesium 20mg Tablets DR 1 by mouth every day 90tabs Unknown Baclofen 20mg Tablets 1 tab by mouth every day Unknown Namenda 10mg Tablets 1 tab by mouth twice a day Unknown Ropinirole HCL 2mg Tablets 1 tab by mouth every day Unknown CPAP 13CM marras Unknown Multivital Tablets 1 tab by mouth every day Unknown Montelukast Sodium 10mg Tablets 1 tab by mouth every day 30tabs Unknown Synthroid 125mcg Tablets 2 tabs by mouth everyday Unknown Furosemide 20mg Tablets 1 tab by mouth every day Unknown Immunizations CPT Code Status Date Vaccine Lot # [id number] Given 06/04/2016 Influenza Vaccine (Fluvirin) 3 Years Of Age Or Older 72786 Given 06/04/2016 Influenza Virus Split 3 Yrs And Above For Intramuscular Use 17671 Given 06/04/2016 Influenza Virus Split 3 Yrs And Above For Intramuscular Use 46157 Given 05/18/2014 Influenza Virus Split 3 Yrs And Above For Intramuscular Use Q2036 Given 05/13/2012 Influenza Vaccine 3 Years Of Age Or Older (Flulaval) 71565 Given 09/30/2010 Pneumococcal PPSV23 81734 Given 06/05/2010 Influenza Virus Split 3 Yrs And Above For Intramuscular Use Vital Signs Date Vital Result Comment 06/12/2021 11:06am BP Systolic 120 mmHg BP Diastolic 72 mmHg Heart Rate 89 /min O2 % BldC Oximetry 93 % Respiratory Rate 18 /min Height 67.5 inches 5'7.50" Weight 1994.00 lb BMI (Body Mass Index) 307.7 kg/m2 [place] Body Weight 135 lb Weight 904.478 kg BSA (Body Surface Area) 5.40 m2 01/22/2021 1:12pm BP Systolic 130 mmHg BP Diastolic 78 mmHg Heart Rate 80 /min O2 % BldC Oximetry 91 % Height 67.5 inches 5'7.50" Weight 204.00 lb BMI (Body Mass Index) 31.5 kg/m2 [place] Body Weight 135 lb Weight 92.534 kg BSA (Body Surface Area) 2.05 m2 Results Description No Information Available Procedures Date Code Description Status 04/18/2021 30606 Diffusing Capacity Completed 04/18/2021 97561 Plethysmography Determination Natty ng Volumes & Per Airway Resist Completed 04/18/2021 55342 Bronchospasm Evaluation Complete d 01/22/2021 35260 Office/Outpatient Established Mo d MDM 30-39 Min Completed Medical Devices Description No Information Available Encounters Type Date Location Provider Dx Diagnosis Office Visit 01/22/2021 1:30p [facility] J43.1 Panlobular emphysema R91.1 Solitary pulmonary nodule G47.33 Obstructive sleep apnea (andres lt) (pediatric) R91.8 Other nonspecific abnormal f inding of lung field F17.218 Nicotine dependence, cigaret blue, w oth disorders Assessments Date Code Description Provider 06/12/2021 J43.1 Panlobular emphysema Suleman austin MD 06/12/2021 G47.33 Obstructive sleep apnea (adult) (pediatric) Suleman Barrios MD 06/12/2021 R91.1 Solitary pulmonary nodule Sarita Barrios MD 06/12/2021 J44.9 Chronic obstructive pulmonary di sease, unspecified Suleman Barrios MD 06/12/2021 F17.218 Nicotine dependence, cigarettes, with other nicotine-induced Suleman Barrios MD 04/18/2021 J43.1 Panlobular emphysema Pulmonary L ab 01/22/2021 J43.1 Panlobular emphysema Suleman austin MD 01/22/2021 R91.1 Solitary pulmonary nodule Sarita Barrios MD 01/22/2021 G47.33 Obstructive sleep apnea (adult) (pediatric) Suleman Barrios MD 01/22/2021 R91.8 Other nonspecific abnormal findi ng of lung field Suleman Barrios MD 01/22/2021 F17.218 Nicotine dependence, cigarettes, with other nicotine-induced Suleman Barrios MD Plan of Treatment Future Appointment(s):* 09/16/2021 1:15 pm - Suleman Barrios MD at [facility] Pulmonary/Thoracic 06/12/2021 - Suleman Barrios MD* J43.1 Panlobular emphysema * G47.33 Obstructive sleep apnea (adult) (pediatric) * R91.1 Solitary pulmonary nodule * J44.9 Chronic obstructive pulmonary disease, unspecified * F17.218 Nicotine dependence, cigarettes, with other nicotine-induced * * New Labs:* FVL/Marck, Ordered: 06/12/21 * Comments:* ~ In view of the above, we will get an overnight oximetry through home care, and I will call her the results of it. I will track down her imaging from Dr. Alvarez. We, again, reviewed the need for smoking cessation.~ Given her increased shortness of breath, I will give her a prednisone taper. She is to let me know how she does with that.~ If she is doing well, I will see her in a minimum of 3 months or sooner if problems arise with which we can be of assistance. * Follow up:* Follow up in three months with spirometry, oximetry and flow volume loop. Will call noc-ox Functional Status Description No Information Available Mental Status Description No Information Available Referrals Description No Information Available
--- OUTSIDE RECORDS SUMMARY | 2021-07-03 18:19 | CCD | Continuity of Care Document ---
Author Author Analy BARRIOS MD Organization Unknown Address [address] [place] [address] Phone [phone] Care Team Providers Care Glass Lathe Operator Name Role Phone Nicho Alvarez M.D. [facility] [phone] Problems Active Problems Provider Date Cough Suleman [...] needed 25.5gm Suleman Barrios MD 10/12/2020 Ipratropium [place]/Albuterol Sulfate 0.5-2.5(3)mg/3ML Solution four times a day [...] (Fluvirin) 3 Years Of Age Or Older 31496 Given 06/04/2016 Influenza Virus Split 3 Yrs And Above For Intramuscular Use 48694 Given 06/04/2016 Influenza Virus Split 3 Yrs And Above For Intramuscular Use 38809 Given 05/18/2014 Influenza Virus Split 3 Yrs And Above For Intramuscular Use Q2036 Given 05/13/2012 Influenza Vaccine 3 Years Of Age Or Older (Flulaval) 18015 Given 09/30/2010 Pneumococcal PPSV23 68205 Given 06/05/2010 Influenza Virus Split 3 Yrs And Above For Intramuscular Use Vital Signs Date Vital Result Comment 06/12/2021 11:06am BP Systolic 120 mmHg BP Diastolic 72 mmHg Heart Rate 89 /min O2 % BldC Oximetry 93 % Respiratory Rate 18 /min Height 67.5 inches 5'7.50" Weight 1994.00 lb BMI (Body Mass Index) 307.7 kg/m2 [place] Body Weight 135 lb Weight 904.478 kg BSA (Body Surface Area) 5.40 m2 01/22/2021 1:12pm BP Systolic 130 mmHg BP Diastolic 78 mmHg Heart Rate 80 /min O2 % BldC Oximetry 91 % Height 67.5 inches 5'7.50" Weight 204.00 lb BMI (Body Mass Index) 31.5 kg/m2 [place] Body Weight 135 lb Weight 92.534 kg BSA (Body Surface Area) 2.05 m2 Results Description No Information Available Procedures Date Code Description Status 04/18/2021 84734 Diffusing Capacity Completed 04/18/2021 04257 Plethysmography Determination Natty ng Volumes & Per Airway Resist Completed 04/18/2021 60560 Bronchospasm Evaluation Complete d 01/22/2021 58764 Office/Outpatient Established Mo d MDM 30-39 Min Completed Medical Devices Description No Information Available Encounters Type Date Location Provider Dx Diagnosis Office Visit 01/22/2021 1:30p [facility] J43.1 Panlobular emphysema R91.1 [...] Treatment Future Appointment(s):* 09/16/2021 1:15 pm - Suleamn Barrios MD at [facility] Pulmonary/Thoracic 06/12/2021 - Suleman Barrios MD* J43.1 Panlobular emphysema * G47.33 Obstructive sleep apnea (adult) (pediatric) * R91.1 Solitary pulmonary nodule * J44.9 Chronic obstructive pulmonary disease, unspecified * F17.218 Nicotine dependence, cigarettes, with other nicotine-induced * * New Labs:* FVL/Marck, Ordered: 06/12/21 * Follow up:* Follow up in three months with spirometry, oximetry and flow volume loop. Will call noc-ox Functional Status Description No Information Available Mental Status Description No Information Available Referrals Description No Information Available
--- OUTSIDE RECORDS SUMMARY | 2021-07-03 18:19 | CCD | Continuity of Care Document ---
Author Author Analy BARRIOS MD Organization Unknown Address [address] [place] [address] Phone [phone] Care Team Providers Care Control Equipment Electrician Name Role Phone Nicho Alvarez M.D. [facility] [phone] Problems Active Problems Provider Date Cough Suleman [...] a current smoker, smo kes every day /2-1 ppd Smoking Status Reviewed: 01/22/21 Patient is a current smoker, smokes every day /2-1 ppd Allergies and adverse reactions Description No Known Drug Allergies Medications Active Medications SIG Qnty Indications Ordering Provide r Date Symbicort 160-4.5mcg/Act Aerosol Inhale Two Puffs By Mouth Twice A Day 30.6gm Suleman Barrios MD 10/20/2020 Proair HFA 108(90Base) mcg/Act Aer osol 2 puffs four times a day as needed 25.5gm Suleman Barrios MD 10/12/2020 Ipratropium [place]/Albuterol Sulfate 0.5-2.5(3)mg/3ML Solution four times a day 540ml J44.9 Suleman celestin MD 09/11/2020 Spiriva Respimat 2.5mcg/Act Aeroso l inhale two puffs by mouth every day 12gm Suleman Barrios MD 12/14/2018 Aspirin 81mg Tablets 1 tabs by mouth every day Unknown Omeprazole 40mg Capsules DR 1 cap by mouth every day 30caps Unknown Baclofen 20mg Tablets 1 tab by [...] (Fluvirin) 3 Years Of Age Or Older 82489 Given 06/04/2016 Influenza Virus Split 3 Yrs And Above For Intramuscular Use 19909 Given 06/04/2016 Influenza Virus Split 3 Yrs And Above For Intramuscular Use 88732 Given 05/18/2014 Influenza Virus Split 3 Yrs And Above For Intramuscular Use Q2036 Given 05/13/2012 Influenza Vaccine 3 Years Of Age Or Older (Flulaval) 94578 Given 09/30/2010 Pneumococcal PPSV23 73541 Given 06/05/2010 Influenza Virus Split 3 Yrs And Above For Intramuscular Use Vital Signs Date Vital Result Comment 01/22/2021 1:12pm BP Systolic 130 mmHg BP Diastolic 78 mmHg Heart Rate 80 /min O2 % BldC Oximetry 91 % Height 67.5 inches 5'7.50" Weight 204.00 lb BMI (Body Mass Index) 31.5 kg/m2 [place] Body Weight 135 lb Weight 92.534 kg BSA (Body Surface Area) 2.05 m2 12/04/2020 3:43pm BP Systolic 130 mmHg BP Diastolic 80 mmHg Heart Rate 71 /min O2 % BldC Oximetry 91 % Height 67.5 inches 5'7.50" Weight 198.00 lb BMI (Body Mass Index) 30.6 kg/m2 [place] Body Weight 135 lb Weight 89.813 kg BSA (Body Surface Area) 2.02 m2 Results Description No Information Available Procedures Date Code Description Status 04/18/2021 33800 Diffusing Capacity Completed 04/18/2021 98343 Plethysmography Determination Natty ng Volumes & Per Airway Resist Completed 04/18/2021 66157 Bronchospasm Evaluation Complete d 01/22/2021 89525 Office/Outpatient Established Mo d MDM 30-39 Min Completed 12/04/2020 22278 Office/Outpatient Established Mo d MDM 30-39 Min Completed 12/04/2020 12326 Spirometry Completed Medical Devices Description No Information Available Encounters Type Date Location Provider Dx Diagnosis Office Visit 01/22/2021 1:30p [facility] Pulmonary/Thoracic Shahzad Barrios MD J43.1 Panlobular emphysema R91.1 Solitary pulmonary nodule G47.33 Obstructive sleep apnea (andres lt) (pediatric) R91.8 Other nonspecific abnormal f inding of lung field F17.218 Nicotine dependence, cigaret blue, w oth disorders Office Visit 12/04/2020 3:30p [facility] Pulmonary/Thoracic Shahzad Barrios MD R91.1 Solitary pulmonary nodule J43.1 Panlobular emphysema G47.33 Obstructive sleep apnea (andres lt) (pediatric) F17.218 Nicotine dependence, cigaret blue, w oth disorders Assessments Date Code Description Provider 04/18/2021 J43.1 Panlobular emphysema Pulmonary L ab 01/22/2021 J43.1 Panlobular emphysema Suleman austin MD 01/22/2021 R91.1 Solitary pulmonary nodule Sarita Barrios MD 01/22/2021 G47.33 Obstructive sleep apnea (adult) (pediatric) Suleman Barrios MD 01/22/2021 R91.8 Other nonspecific abnormal findi ng of lung field Suleman Barrios MD 01/22/2021 F17.218 Nicotine dependence, cigarettes, with other nicotine-induced Suleman Barrios MD 12/04/2020 R91.1 Solitary pulmonary nodule Sarita Barrios MD 12/04/2020 J43.1 Panlobular emphysema Suleman austin MD 12/04/2020 G47.33 Obstructive sleep apnea (adult) (pediatric) Suleman Barrios MD 12/04/2020 F17.218 Nicotine dependence, cigarettes, with other nicotine-induced Suleman Barrios MD Plan of Treatment Future Appointment(s):* 06/12/2021 11:15 am - Suleman Barrios MD at [facility] Pulmonary/Thoracic 01/22/2021 - Suleman Barrios MD* J43.1 Panlobular emphysema * R91.1 Solitary pulmonary nodule * G47.33 Obstructive sleep apnea (adult) (pediatric) * R91.8 Other nonspecific abnormal finding of lung field * F17.218 Nicotine dependence, cigarettes, with other nicotine-induced * * Comments:* ~ At this point, she is to continue her current regimen. She was applauded for her compliance. I have urged her to stay as active as she can, and if using the walker aids her with that, then, by all means she should use it as often as possible. We discussed routine infection surveillance.~ She has now finished SBRT, and we should probably repeat her full pulmonary functions in 3-to-4 months. I will make arrangements to see her in return at that time. She tells me she is pretty sure she has a CT scan ordered by Dr. Alvarez, to be done in May. We await the outcome of that. * Follow up:* Sept with PFTs before Functional Status Description No Information Available Mental Status Description No Information Available Referrals Refer to Reason for Referral Status Appt Date Nicho Alvarez M.D. SBRT RUL Closed 12/12/2020 [facility] Radiation Oncol [address] [place] [address] [phone]
--- OUTSIDE RECORDS SUMMARY | 2021-07-03 18:19 | CCD | Continuity of Care Document ---
Author Author Analy BARRIOS MD Organization Unknown Address [address] [place] [address] Phone [phone] Care Team Providers Care Community Affairs Director Name Role Phone iNcho Alvarez M.D. [facility] [phone] Problems Active Problems Provider Date Cough Suleman Barrios MD Onset: 05/01/2011 Obesity Suelman Barrios MD Onset: 05/01/2011 Emphysematous bronchitis Suleman [...] needed 25.5gm Suleman Barrios MD 10/12/2020 Ipratropium [place]/Albuterol Sulfate 0.5-2.5(3)mg/3ML Solution four times a day [...] (Fluvirin) 3 Years Of Age Or Older 17058 Given 06/04/2016 Influenza Virus Split 3 Yrs And Above For Intramuscular Use 96833 Given 06/04/2016 Influenza Virus Split 3 Yrs And Above For Intramuscular Use 25913 Given 05/18/2014 Influenza Virus Split 3 Yrs And Above For Intramuscular Use Q2036 Given 05/13/2012 Influenza Vaccine 3 Years Of Age Or Older (Flulaval) 43609 Given 09/30/2010 Pneumococcal PPSV23 31587 Given 06/05/2010 Influenza Virus Split 3 Yrs And Above For Intramuscular Use Vital Signs Date Vital Result Comment 06/12/2021 11:06am BP Systolic 120 mmHg BP Diastolic 72 mmHg Heart Rate 89 /min O2 % BldC Oximetry 93 % Respiratory Rate 18 /min Height 67.5 inches 5'7.50" Weight 1994.00 lb BMI (Body Mass Index) 307.7 kg/m2 [place] Body Weight 135 lb Weight 904.478 kg BSA (Body Surface Area) 5.40 m2 01/22/2021 1:12pm BP Systolic 130 mmHg BP Diastolic 78 mmHg Heart Rate 80 /min O2 % BldC Oximetry 91 % Height 67.5 inches 5'7.50" Weight 204.00 lb BMI (Body Mass Index) 31.5 kg/m2 [place] Body Weight 135 lb Weight 92.534 kg BSA (Body Surface Area) 2.05 m2 Results Description No Information Available Procedures Date Code Description Status 04/18/2021 13068 Diffusing Capacity Completed 04/18/2021 61703 Plethysmography Determination Natty ng Volumes & Per Airway Resist Completed 04/18/2021 49431 Bronchospasm Evaluation Complete d 01/22/2021 71790 Office/Outpatient Established Mo d MDM 30-39 Min Completed Medical Devices Description No Information Available Encounters Type Date Location Provider Dx Diagnosis Office Visit 01/22/2021 1:30p [facility] J43.1 Panlobular emphysema R91.1 [...] 1:15 pm - Suleman Barrios MD at [facility] Pulmonary/Thoracic 06/12/2021 - Suleman Barrios [...]
--- OUTSIDE RECORDS SUMMARY | 2021-07-03 18:19 | CCD | Continuity of Care Document ---
Author Author Analy BARRIOS MD Organization Unknown Address [address] [place] [address] Phone [phone] Care Team Providers Care Motor Analyst Name Role Phone Nicho Alvarez M.D. [facility] [phone] Problems Active Problems Provider Date Cough Suleman [...] needed 25.5gm Suleman Barrios MD 10/12/2020 Ipratropium [place]/Albuterol Sulfate 0.5-2.5(3)mg/3ML Solution four times a day [...] (Fluvirin) 3 Years Of Age Or Older 36435 Given 06/04/2016 Influenza Virus Split 3 Yrs And Above For Intramuscular Use 16777 Given 06/04/2016 Influenza Virus Split 3 Yrs And Above For Intramuscular Use 61309 Given 05/18/2014 Influenza Virus Split 3 Yrs And Above For Intramuscular Use Q2036 Given 05/13/2012 Influenza Vaccine 3 Years Of Age Or Older (Flulaval) 27126 Given 09/30/2010 Pneumococcal PPSV23 77829 Given 06/05/2010 Influenza Virus Split 3 Yrs And Above For Intramuscular Use Vital Signs Date Vital Result Comment 06/12/2021 11:06am BP Systolic 120 mmHg BP Diastolic 72 mmHg Heart Rate 89 /min O2 % BldC Oximetry 93 % Respiratory Rate 18 /min Height 67.5 inches 5'7.50" Weight 1994.00 lb BMI (Body Mass Index) 307.7 kg/m2 [place] Body Weight 135 lb Weight 904.478 kg BSA (Body Surface Area) 5.40 m2 01/22/2021 1:12pm BP Systolic 130 mmHg BP Diastolic 78 mmHg Heart Rate 80 /min O2 % BldC Oximetry 91 % Height 67.5 inches 5'7.50" Weight 204.00 lb BMI (Body Mass Index) 31.5 kg/m2 [place] Body Weight 135 lb Weight 92.534 kg BSA (Body Surface Area) 2.05 m2 Results Description No Information Available Procedures Date Code Description Status 04/18/2021 39906 Diffusing Capacity Completed 04/18/2021 07055 Plethysmography Determination Natty ng Volumes & Per Airway Resist Completed 04/18/2021 18984 Bronchospasm Evaluation Complete d 01/22/2021 51329 Office/Outpatient Established Mo d MDM 30-39 Min Completed Medical Devices Description No Information Available Encounters Type Date Location Provider Dx Diagnosis Office Visit 01/22/2021 1:30p [facility] J43.1 Panlobular emphysema R91.1 Solitary [...] MD 01/22/2021 R91.1 Solitary pulmonary nodule Sarita aBrrios MD 01/22/2021 G47.33 Obstructive sleep apnea (adult) (pediatric) Suleman Barrios MD 01/22/2021 R91.8 Other nonspecific abnormal findi ng of lung field Suleman Barrios MD 01/22/2021 F17.218 Nicotine dependence, cigarettes, with other nicotine-induced Suleman Barrios MD Plan of Treatment Future Appointment(s):* 09/16/2021 1:15 pm - Suleman Barrios MD at [facility] Pulmonary/Thoracic 06/12/2021 - Suleman Barrios MD* J43.1 [...]
--- OUTSIDE RECORDS SUMMARY | 2021-07-03 18:19 | CCD | Continuity of Care Document ---
Author Author Pulmonary Lab, Analy [place] Organization Unknown Address [address] [place] [address] Phone [phone] Care Team Providers Care Guardian Family Member Name Role Phone Nicho Alvarez M.D. [facility] [phone] Problems Active Problems Provider Date Cough Suleman [...] every day 2-1 ppd Smoking Status Reviewed: 01/22/21 Patient is a current smoker, smokes every day /2-1 ppd Allergies, Adverse Reactions, Alerts Description No Known Drug Allergies Medications Active Medications SIG Qnty Indications Ordering Provide r Date Symbicort 160-4.5mcg/Act Aerosol Inhale Two Puffs By Mouth Twice A Day 30.6gm Suleman Barrios MD 10/20/2020 Proair HFA 108(90Base) mcg/Act Aer osol 2 puffs four times a day as needed 25.5gm Suleman Barrios MD 10/12/2020 Ipratropium [place]/Albuterol Sulfate 0.5-2.5(3)mg/3ML Solution four times a day [...] (Fluvirin) 3 Years Of Age Or Older 86442 Given 06/04/2016 Influenza Virus Split 3 Yrs And Above For Intramuscular Use 97095 Given 06/04/2016 Influenza Virus Split 3 Yrs And Above For Intramuscular Use 04850 Given 05/18/2014 Influenza Virus Split 3 Yrs And Above For Intramuscular Use Q2036 Given 05/13/2012 Influenza Vaccine 3 Years Of Age Or Older (Flulaval) 27707 Given 09/30/2010 Pneumococcal PPSV23 85001 Given 06/05/2010 Influenza Virus Split 3 Yrs And Above For Intramuscular Use Vital Signs Date Vital Result Comment 01/22/2021 1:12pm BP Systolic 130 mmHg BP Diastolic 78 mmHg Heart Rate 80 /min O2 % BldC Oximetry 91 % Height 67.5 inches 5'7.50" Weight 204.00 lb BMI (Body Mass Index) 31.5 kg/m2 [place] Body Weight 135 lb Weight 92.534 kg BSA (Body Surface Area) 2.05 m2 12/04/2020 3:43pm BP Systolic 130 mmHg BP Diastolic 80 mmHg Heart Rate 71 /min O2 % BldC Oximetry 91 % Height 67.5 inches 5'7.50" Weight 198.00 lb BMI (Body Mass Index) 30.6 kg/m2 [place] Body Weight 135 lb Weight 89.813 kg BSA (Body Surface Area) 2.02 m2 Results Description No Information Available Procedures Date Code Description Status 01/22/2021 91950 Office/Outpatient Established Mo d MDM 30-39 Min Completed 12/04/2020 66211 Office/Outpatient Established Mo d MDM 30-39 Min Completed 12/04/2020 73903 Spirometry Completed Medical Devices Description No Information Available Encounters Type Date Location Provider Dx Diagnosis Office Visit 01/22/2021 1:30p [facility] Pulmonary/Thoracic Shahzad Barrios MD J43.1 Panlobular emphysema R91.1 Solitary pulmonary nodule G47.33 Obstructive sleep apnea (andres lt) (pediatric) R91.8 Other nonspecific abnormal f inding of lung field F17.218 Nicotine dependence, cigaret blue, w oth disorders Office Visit 12/04/2020 3:30p [facility] Pulmonary/Thoracic Shahzad Barrios MD R91.1 Solitary pulmonary nodule J43.1 Panlobular emphysema G47.33 Obstructive sleep apnea (andres lt) (pediatric) F17.218 Nicotine dependence, cigaret blue, w oth disorders Assessments Date Code Description Provider 01/22/2021 J43.1 Panlobular emphysema Suleman austin MD [...] Barrios MD Plan of Treatment Future Appointment(s):* 04/30/2021 9:45 am - Suleman Barrios MD at [facility] Pulmonary/Thoracic 01/22/2021 - Suleman Barrios MD* J43.1 [...] Nicho Alvarez M.D. SBRT RUL Closed 12/12/2020 [facility] Radiation Oncol [address] [place] [address] [phone] Radiology/Procedure 90999 Closed
--- OUTSIDE RECORDS SUMMARY | 2021-07-03 18:19 | CCD | Continuity of Care Document ---
Author Author Analy BARRIOS MD Organization Unknown Address [address] [place] [address] Phone [phone] Care Team Providers Care Information Security Name Role Phone Nicho Alvarez M.D. [facility] [phone] Problems Active Problems Provider Date Cough Suleman [...] needed 25.5gm Suleman Barrios MD 10/12/2020 Ipratropium [place]/Albuterol Sulfate 0.5-2.5(3)mg/3ML Solution four times a day [...] (Fluvirin) 3 Years Of Age Or Older [address] Given 06/04/2016 Influenza Virus Split 3 Yrs And Above For Intramuscular Use 50246 Given 06/04/2016 Influenza Virus Split 3 Yrs And Above For Intramuscular Use 14106 Given 05/18/2014 Influenza Virus Split 3 Yrs And Above For Intramuscular Use Q2036 Given 05/13/2012 Influenza Vaccine 3 Years Of Age Or Older (Flulaval) 57278 Given 09/30/2010 Pneumococcal PPSV23 02126 Given 06/05/2010 Influenza Virus Split 3 Yrs And Above For Intramuscular Use Vital Signs Date Vital Result Comment 06/12/2021 11:06am BP Systolic 120 mmHg BP Diastolic 72 mmHg Heart Rate 89 /min O2 % BldC Oximetry 93 % Respiratory Rate 18 /min Height 67.5 inches 5'7.50" Weight 1994.00 lb BMI (Body Mass Index) 307.7 kg/m2 [place] [facility] Weight 135 lb Weight 904.478 kg BSA (Body Surface Area) 5.40 m2 01/22/2021 1:12pm BP Systolic 130 mmHg BP Diastolic 78 mmHg Heart Rate 80 /min O2 % BldC Oximetry 91 % Height 67.5 inches 5'7.50" Weight 204.00 lb BMI (Body Mass Index) 31.5 kg/m2 [place] [facility] Weight 135 lb Weight 92.534 kg BSA (Body Surface Area) 2.05 m2 Results Description No Information Available Procedures Date Code Description Status 04/18/2021 24547 Diffusing Capacity Completed 04/18/2021 77137 Plethysmography Determination Natty ng Volumes & Per Airway Resist Completed 04/18/2021 44776 Bronchospasm Evaluation Complete d 01/22/2021 41308 Office/Outpatient Established Mo d MDM 30-39 Min Completed Medical Devices Description No Information Available Encounters Type Date Location Provider Dx Diagnosis Office Visit 01/22/2021 1:30p [facility] J[facility].1 Panlobular emphysema R91.1 [...] 1:15 pm - Suleman Barrios MD at [facility] Pulmonary/Thoracic 06/12/2021 - Suleman Barrios MD* [...]
--- OUTSIDE RECORDS SUMMARY | 2021-07-03 18:19 | CCD | Continuity of Care Document ---
Author Author Analy BARRIOS MD Organization Unknown Address [address] [place] [address] Phone [phone] Care Team Providers Care Sports Book Server Name Role Phone Nicho Alvarez M.D. [facility] [phone] Problems Active Problems Provider Date Cough Suleman [...] needed 25.5gm Suleman Barrios MD 10/12/2020 Ipratropium [place]/Albuterol Sulfate 0.5-2.5(3)mg/3ML Solution four times a day [...] (Fluvirin) 3 Years Of Age Or Older 61148 Given 06/04/2016 Influenza Virus Split 3 Yrs And Above For Intramuscular Use 96647 Given 06/04/2016 Influenza Virus Split 3 Yrs And Above For Intramuscular Use 59095 Given 05/18/2014 Influenza Virus Split 3 Yrs And Above For Intramuscular Use Q2036 Given 05/13/2012 Influenza Vaccine 3 Years Of Age Or Older (Flulaval) 17609 Given 09/30/2010 Pneumococcal PPSV23 73864 Given 06/05/2010 Influenza Virus Split 3 Yrs And Above For Intramuscular Use Vital Signs Date Vital Result Comment 06/12/2021 11:06am BP Systolic 120 mmHg BP Diastolic 72 mmHg Heart Rate 89 /min O2 % BldC Oximetry 93 % Respiratory Rate 18 /min Height 67.5 inches 5'7.50" Weight 1994.00 lb BMI (Body Mass Index) 307.7 kg/m2 [place] Body Weight 135 lb Weight 904.478 kg BSA (Body Surface Area) 5.40 m2 01/22/2021 1:12pm BP Systolic 130 mmHg BP Diastolic 78 mmHg Heart Rate 80 /min O2 % BldC Oximetry 91 % Height 67.5 inches 5'7.50" Weight 204.00 lb BMI (Body Mass Index) 31.5 kg/m2 [place] Body Weight 135 lb Weight 92.534 kg BSA (Body Surface Area) 2.05 m2 Results Description No Information Available Procedures Date Code Description Status 04/18/2021 72950 Diffusing Capacity Completed 04/18/2021 98271 Plethysmography Determination Natty ng Volumes & Per Airway Resist Completed 04/18/2021 28815 Bronchospasm Evaluation Complete d 01/22/2021 02457 Office/Outpatient Established Mo d MDM 30-39 Min Completed Medical Devices Description No Information Available Encounters Type Date Location Provider Dx Diagnosis Office Visit 01/22/2021 1:30p [facility] J43.1 Panlobular emphysema R91.1 Solitary [...] 1:15 pm - Suleman Barrios MD at [facility] Pulmonary/Thoracic 06/12/2021 - Suleman Barrios MD* [...]
--- OUTSIDE RECORDS SUMMARY | 2021-07-03 18:20 | CCD ---
Author Author [facility] Organization [facility] Address Unknown Phone Unavailable Care Team Providers Care Funeral Prearrangement Counselor Name Role Phone Dai Martinez Unavailable Unavailable Dai Martinez Unavailable Unavailable Dai Martinez Unavailable Unavailable JuanDai hanson Unavailable Unavailable Dai Martinez Unavailable Unavailable Dai Martinez Unavailable Unavailable Dai Martinez Unavailable Unavailable Dai Martinez Unavailable Unavailable Dai Martinez Unavailable Unavailable Dai Martinez Unavailable Unavailable Dai Martinez Unavailable Unavailable Dai Martinez Unavailable Unavailable Dai Martinez Unavailable Unavailable Dai Martinez Unavailable Unavailable Dai Martinez Unavailable Unavailable Dai Martinez Unavailable Unavailable Dai Martinez Unavailable Unavailable Dai Martinez Unavailable Unavailable Dai Martinez Unavailable Unavailable Juan, Luciana MD Unavailable Unavailable Juan, Luciana MD Unavailable Unavailable Juan, Luciana MD Unavailable Unavailable Juan, Luciana MD Unavailable Unavailable Juan, Luciana MD Unavailable Unavailable Juan, Luciana MD Unavailable Unavailable Juan, Luciana MD Unavailable Unavailable Juan, Luciana MD Unavailable Unavailable Juan, Luciana MD Unavailable Unavailable Juan, Luciana MD Unavailable Unavailable Juan, Luciana MD Unavailable Unavailable Juan, Luciana MD Unavailable Unavailable Juan, Luciana MD Unavailable Unavailable Juan, Luciana MD Unavailable Unavailable Juan, Luciana MD Unavailable Unavailable Juan, Luciana MD Unavailable Unavailable Juan, Luciana MD Unavailable Unavailable Juan, Luciana MD Unavailable Unavailable Juan, Luciana MD Unavailable Unavailable Juan, Luciana MD Unavailable Unavailable Juan, Luciana MD Unavailable Unavailable Juan, Luciana MD Unavailable Unavailable Juan, Luciana MD Unavailable Unavailable Juan, Luciana MD Unavailable Unavailable Juan, Luciana MD Unavailable Unavailable Juan, Luciana MD Unavailable Unavailable Juan, Luciana MD Unavailable Unavailable Juan, Luciana MD Unavailable Unavailable Juan, Luciana MD Unavailable Unavailable Juan, Luciana MD Unavailable Unavailable Juan, Luciana MD Unavailable Unavailable Juan, Luciana MD Unavailable Unavailable Juan, Luciana MD Unavailable Unavailable Juan, Luciana MD Unavailable Unavailable Juan, Luciana MD Unavailable Unavailable Juan, Luciana MD Unavailable Unavailable Juan, Luciana MD Unavailable Unavailable Juan, Luciana MD Unavailable Unavailable Juan, Luciana MD Unavailable Unavailable Juan, Luciana MD Unavailable Unavailable Juan, Luciana MD Unavailable Unavailable Juan, Luciana MD Unavailable Unavailable Juan, Luciana MD Unavailable Unavailable HUIZENGA, D DAVE DO Unavailable Unavailable HUIZENGA, D DAVE DO Unavailable Unavailable HUIZENGA, D DAVE DO Unavailable Unavailable HUIZENGA, D DAVE DO Unavailable Unavailable HUIZENGA, D DAVE DO Unavailable Unavailable HUIZENGA, D DAVE DO Unavailable Unavailable HUIZENGA, D DAVE DO Unavailable Unavailable HUIZENGA, D DAVE DO Unavailable Unavailable HUIZENGA, D DAVE DO Unavailable Unavailable HUIZENGA, D DAVE DO Unavailable Unavailable HUIZENGA, D DAVE DO Unavailable Unavailable HUIZENGA, D DAVE DO Unavailable Unavailable HUIZENGA, D DAVE DO Unavailable Unavailable HUIZENGA, D DAVE DO Unavailable Unavailable HUIZENGA, D DAVE DO Unavailable Unavailable HUIZENGA, Jerome ACOSTA DO Unavailable Unavailable HUIZENGA, Jerome ACOSTA DO Unavailable Unavailable HUIZENGA, Jerome ACOSTA DO Unavailable Unavailable HUIZENGA, Jerome ACOSTA DO Unavailable Unavailable HUIZENGA, Jerome ACOSTA DO Unavailable Unavailable HUIZENGA, Jerome ACOSTA DO Unavailable Unavailable HUIZENGA, Jerome ACOSTA DO Unavailable Unavailable HUIZENGA, Jerome ACOSTA DO Unavailable Unavailable HUIZENGA, Jerome ACOSTA DO Unavailable Unavailable HUIZENGA, Jerome ACOSTA DO Unavailable Unavailable HUIZENGA, Jerome ACOSTA DO Unavailable Unavailable HUIZENGA, Jerome ACOSTA DO Unavailable Unavailable HUIZENGA, Jerome ACOSTA DO Unavailable Unavailable HUIZENGA, Jerome ACOSTA DO Unavailable Unavailable HUIZENGA, Jerome ACOSTA DO Unavailable Unavailable HUIZENGA, Jerome ACOSTA DO Unavailable Unavailable HUIZENGA, Jerome ACOSTA DO Unavailable Unavailable HUIZENGA, Jerome ACOSTA DO Unavailable Unavailable HUIZENGA, Jerome ACOSTA DO Unavailable Unavailable HUIZENGA, Jerome ACOSTA DO Unavailable Unavailable HUIZENGA, Jerome ACOSTA DO Unavailable Unavailable HUIZENGA, Jerome ACOSTA DO Unavailable Unavailable HUIZENGA, Jerome ACOSTA DO Unavailable Unavailable HUIZENGA, Jerome ACOSTA DO Unavailable Unavailable HUIZENGA, Jerome ACOSTA DO Unavailable Unavailable HUIZENGA, Jerome ACOSTA DO Unavailable Unavailable HUIZENGA, Jerome ACOSTA DO Unavailable Unavailable HUIZENGA, Jerome ACOSTA DO Unavailable Unavailable HUIZENGA, Jerome ACOSTA DO Unavailable Unavailable HUIZENGA, Jerome ACOSTA DO Unavailable Unavailable HUIZENGA, Jerome ACOSTA DO Unavailable Unavailable HUIZENGA, Jerome ACOSTA DO Unavailable Unavailable HUIZENGA, Jerome ACOSTA DO Unavailable Unavailable HUIZENGA, Jerome ACOSTA DO Unavailable Unavailable HUIZENGA, Jerome ACOSTA DO Unavailable Unavailable HUIZENGA, Jerome ACOSTA DO Unavailable Unavailable HUIZENGA, Jerome ACOSTA DO Unavailable Unavailable HUIZENGA, Jerome ACOSTA DO Unavailable Unavailable HUIZENGA, Jerome ACOSTA DO Unavailable Unavailable HUIZENGA, Jerome ACOSTA DO Unavailable Unavailable HUIZENGA, Jerome ACOSTA DO Unavailable Unavailable HUIZENGA, Jerome ACOSTA DO Unavailable Unavailable HUIZENGA, Jerome ACOSTA DO Unavailable Unavailable HUIZENGA, Jerome ACOSTA DO Unavailable Unavailable HUIZENGA, D DAVE DO Unavailable Unavailable HUIZENGA, D DAVE DO Unavailable Unavailable HUIZENGA, D DAVE DO Unavailable Unavailable HUIZENGA, D DAVE DO Unavailable Unavailable HUIZENGA, D DAVE DO Unavailable Unavailable HUIZENGA, D DAVE DO Unavailable Unavailable HUIZENGA, D DAVE DO Unavailable Unavailable HUIZENGA, D DAVE DO Unavailable Unavailable HUIZENGA, D DAVE DO Unavailable Unavailable HUIZENGA, D DAVE DO Unavailable Unavailable HUIZENGA, D DAVE DO Unavailable Unavailable HUIZENGA, D DAVE DO Unavailable Unavailable HUIZENGA, D DAVE DO Unavailable Unavailable HUIZENGA, D DAVE DO Unavailable Unavailable HUIZENGA, D DAVE DO Unavailable Unavailable HUIZENGA, D DAVE DO Unavailable Unavailable HUIZENGA, D DAVE DO Unavailable Unavailable HUIZENGA, D DAVE DO Unavailable Unavailable Herrera, L Prerna PA Unavailable Unavailable Herrera, L Prerna PA Unavailable Unavailable Herrera, L Prerna PA Unavailable Unavailable Herrera, L Prerna PA Unavailable Unavailable Herrera, L Prerna PA Unavailable Unavailable Herrera, L Prerna PA Unavailable Unavailable Herrera, L Prerna PA Unavailable Unavailable Herrera, L Prerna PA Unavailable Unavailable Herrera, L Prerna PA Unavailable Unavailable Herrera, L Prerna PA Unavailable Unavailable Herrera, L Prerna PA Unavailable Unavailable Herrera, L Prerna PA Unavailable Unavailable Herrera, L Prerna PA Unavailable Unavailable Herrera, L Prerna PA Unavailable Unavailable Herrera, L Prerna PA Unavailable Unavailable Herrera, L Prerna PA Unavailable Unavailable Herrera, L Prerna PA Unavailable Unavailable Herrera, L Prerna PA Unavailable Unavailable Herrera, L Prerna PA Unavailable Unavailable Herrera, L Prerna PA Unavailable Unavailable Herrera, L Prerna PA Unavailable Unavailable Herrera, L Prerna PA Unavailable Unavailable Herrera, L Prerna PA Unavailable Unavailable Herrera, L Prerna PA Unavailable Unavailable Herrera, L Prerna PA Unavailable Unavailable Herrera, L Prerna PA Unavailable Unavailable Herrera, L Prerna PA Unavailable Unavailable Herrera, L Prerna PA Unavailable Unavailable Herrera, L Prerna PA Unavailable Unavailable Herrera, L Prerna PA Unavailable Unavailable Herrera, L Prerna PA Unavailable Unavailable Herrera, L Prerna PA Unavailable Unavailable Herrera, L Prerna PA Unavailable Unavailable Herrera, L Prerna PA Unavailable Unavailable Herrera, L Prerna PA Unavailable Unavailable HerreraPatriciaelle PA Unavailable Unavailable HerreraPatriciaelle PA Unavailable Unavailable Herrera, L Prerna PA Unavailable Unavailable Herrera, L Prerna PA Unavailable Unavailable BarriosWaylon MD Unavailable Unavailable BarriosWaylon MD Unavailable Unavailable BarriosWaylon MD Unavailable Unavailable BarriosWaylon MD Unavailable Unavailable BarriosWaylon MD Unavailable Unavailable BarriosWaylon MD Unavailable Unavailable BarriosWaylon MD Unavailable Unavailable BarriosWaylon MD Unavailable Unavailable Barrios, Waylon Shell MD Unavailable Unavailable Barrios, Waylon Shell MD Unavailable Unavailable BarriosWaylon MD Unavailable Unavailable BarriosWaylon MD Unavailable Unavailable BarriosWaylon MD Unavailable Unavailable BarriosWaylon MD Unavailable Unavailable Barrios, Waylon Shell MD Unavailable Unavailable Barrios, Waylon hSell MD Unavailable Unavailable BarriosWaylon MD Unavailable Unavailable Barrios, Waylon Shell MD Unavailable Unavailable Barrios, Waylon Shell MD Unavailable Unavailable BarriosWaylon MD Unavailable Unavailable BarriosWaylon MD Unavailable Unavailable BarriosWaylon MD Unavailable Unavailable Waylon Barrios MD Unavailable Unavailable Waylon Barrios MD Unavailable Unavailable BarriosWaylon MD Unavailable Unavailable BarriosWaylon MD Unavailable Unavailable BarriosWaylon MD Unavailable Unavailable BarriosWaylon MD Unavailable Unavailable BarriosWaylon MD Unavailable Unavailable BarriosWaylon MD Unavailable Unavailable Waylon Barrios MD Unavailable Unavailable Waylon Barrios MD Unavailable Unavailable Waylon Barrios MD Unavailable Unavailable Waylon Barrios MD Unavailable Unavailable Waylon Barrios MD Unavailable Unavailable Waylon Barrios MD Unavailable Unavailable Waylon Barrios MD Unavailable Unavailable Waylon Barrios MD Unavailable Unavailable Waylon Barrios MD Unavailable Unavailable Waylon Barrios MD Unavailable Unavailable Waylon Barrios MD Unavailable Unavailable Waylon Barrios MD Unavailable Unavailable Waylon Barrios MD Unavailable Unavailable Waylon Barrios MD Unavailable Unavailable BarriosWaylon MD Unavailable Unavailable Waylon Barrios MD Unavailable Unavailable Waylon Barrios MD Unavailable Unavailable Waylon Barrios MD Unavailable Unavailable Waylon Barrios MD Unavailable Unavailable Waylon Barrios MD Unavailable Unavailable Waylon Barrios MD Unavailable Unavailable Waylon Barrios MD Unavailable Unavailable Waylon Barrios MD Unavailable Unavailable Waylon Barrios MD Unavailable Unavailable Yessi Brown MD Unavailable Unavailable Yessi Brown MD Unavailable Unavailable Yessi Brown MD Unavailable Unavailable Yessi Brown MD Unavailable Unavailable Yessi Brown MD Unavailable Unavailable Yessi Brown MD Unavailable Unavailable Yessi Brown MD Unavailable Unavailable Yessi Brown MD Unavailable Unavailable Yessi Brown MD Unavailable Unavailable Yessi Brown MD Unavailable Unavailable Yessi Brown MD Unavailable Unavailable Yessi Brown MD Unavailable Unavailable Yessi Brown MD Unavailable Unavailable Yessi Brown MD Unavailable Unavailable Yessi Brown MD Unavailable Unavailable Yessi Brown MD Unavailable Unavailable Yessi Brown MD Unavailable Unavailable Yessi Brown MD Unavailable Unavailable Yessi Brown MD Unavailable Unavailable Yessi Brown MD Unavailable Unavailable Yessi Brown MD Unavailable Unavailable Yessi Brown MD Unavailable Unavailable Yessi Brown MD Unavailable Unavailable Yessi Brown MD Unavailable Unavailable Yessi Brown MD Unavailable Unavailable Yessi Brown MD Unavailable Unavailable Yessi Brown MD Unavailable Unavailable Yessi Brown MD Unavailable Unavailable Yessi Brown MD Unavailable Unavailable Yessi Brown MD Unavailable Unavailable Yessi Brown MD Unavailable Unavailable Yessi Brown MD Unavailable Unavailable Yessi Brown MD Unavailable Unavailable Yessi Brown MD Unavailable Unavailable Yessi Brown MD Unavailable Unavailable Yessi Brown MD Unavailable Unavailable Yessi Brown MD Unavailable Unavailable Yessi Brown MD Unavailable Unavailable Yessi Brown MD Unavailable Unavailable Yessi Brown MD Unavailable Unavailable Yessi Brown MD Unavailable Unavailable Yessi Brown MD Unavailable Unavailable Yessi Brown MD Unavailable Unavailable Yessi Brown MD Unavailable Unavailable Yessi Brown MD Unavailable Unavailable Yessi Brown MD Unavailable Unavailable Yessi Brown MD Unavailable Unavailable Yessi Brown MD Unavailable Unavailable Yessi Brown MD Unavailable Unavailable Yessi Brown MD Unavailable Unavailable Yessi Brown MD Unavailable Unavailable Yessi Brown MD Unavailable Unavailable Yessi Brown MD Unavailable Unavailable Yessi Brown MD Unavailable Unavailable Yessi Brown MD Unavailable Unavailable Yessi Brown MD Unavailable Unavailable Yessi Brown MD Unavailable Unavailable Yessi Brown MD Unavailable Unavailable Yessi Brown MD Unavailable Unavailable Re-disclosure Warning The records that you are about to access may contain information from federally-assisted alcohol or drug abuse programs. If such information is present, then the following federally mandated warning applies: This information has been disclosed to you from records protected by federal confidentiality rules (42 CFR part 2). The federal rules prohibit you from making any further disclosure of this information unless further disclosure is expressly permitted by the written consent of the person to whom it pertains or as otherwise permitted by 42 CFR part 2. A general authorization for the release of medical or other information is NOT sufficient for this purpose. The Federal rules restrict any use of the information to criminally investigate or prosecute any alcohol or drug abuse patient.The records that you are about to access may contain highly sensitive health information, the redisclosure of which is protected by Article 27-F of the [facility] Public Health law. If you continue you may have access to information: Regarding HIV / AIDS; Provided by facilities licensed or operated by the [facility] Office of Mental Health; or Provided by the [facility] Office for People With Developmental Disabilities. If such information is present, then the following [facility] mandated warning applies: This information has been disclosed to you from confidential records which are protected by state law. State law prohibits you from making any further disclosure of this information without the specific written consent of the person to whom it pertains, or as otherwise permitted by law. Any unauthorized further disclosure in violation of state law may result in a fine or mcfp sentence or both. A general authorization for the release of medical or other information is NOT sufficient authorization for further disc losure. Allergies and Adverse Reactions Type Description Substance Reaction Status Data Source(s ) Propensity to adverse reactions NO KNOWN ALLERGIES NO KNOWN [facility] Family History Family Member Name Family Member Gender Family Member Status Date o f Status Description Data Source(s) Unknown Male Problem [facility] ([facility] () Unknown Male Problem [facility] ([facility]) Unknown Female Problem MEDENT ([facility] ) Encounters Encounter Providers Location Date Indications Data Source(s ) Outpatient Referrer: Prerna PANDYA.VALERY-[email or web address].VALERY 12:00:00 AM [facility] Outpatient Referrer: Prerna DE LA TORREVALERY-SJP.VALERY 12:00:00 AM EDT [facility] Outpatient Attender: Prrena DE LA TORREVALERY-SJP.VALERY 12:00:00 AM EDT - 05/01/2021 03:25:36 PM EDT [facility] [place] [address] [address] 03/31/2021 12:00:00 AM EDT eCW1 (Critical access hospital) Outpatient Attender: Luciana Martinez MD [facility] 03/25/2021 11:00:00 AM EDT MEDENT ([facility]) Outpatient Attender: Prerna DE LA TORREVALERY-SJPYolandaVALERY 06/2021 08:24:08 AM EDT - 03/20/2021 09:38:33 AM EDT [facility] Outpatient Attender: Suleman Garcia/Bean/Best/R eindl 01/22/2021 01:30:00 PM EDT [facility] ([facility] [place] [address] [facility] [place] [address] 01/21/2021 12:00:00 AM EDT eCW1 (Critical access hospital) Outpatient Referrer: DAVE SAXENA DO 12/21/2020 12 :00:00 AM EDT Encounter for screening mammogram for malignant neoplasm of breast [facility] Encounter for screening mammogram for ma lignant neoplasm of breast Outpatient Referrer: DAVE SAXENA DO 12/21/2020 12:00:00 AM EDT [facility] Unknown [address] [facility] [place] [address] 12/10/2020 12:00:00 AM EDT eCW1 (Critical access hospital) Outpatient Attender: Suleman Garcia/Bean/Best/R eindl 12/04/2020 03:30:00 PM EDT [facility] ([facility]) [place] [address] [facility] [place] [address] 10/12/2020 12:00:00 AM EST eCW1 ([facility] Outpatient Attender: Luciana Martinez MD Main office [facility] 10/10/2020 10:15:00 AM EST MEDENT ([facility], ) Outpatient Attender: Suleman Garcia/Bean/Best/R eindl 09/11/2020 02:00:00 PM EST [facility] ([facility] ) [place] [address] [address] 07/26/2020 12:00:00 AM [facility] [address] [facility] [address] 06/25/2020 12:00:00 AM EST [facility] [place] [address] [facility] [place] [address] 06/20/2020 12:00:00 AM EST [facility] Outpatient Attender: Suleman Garcia/Bean/Best/R eindl 06/07/2020 03:15:00 PM EDT MEDENT ([facility], ) [place] [address] [address] 05/28/2020 12:00:00 AM EDT [facility]CW[facility] [place] [address] [address] 05/28/2020 12:00:00 AM EDT [facility] Outpatient Referrer: Yessi ARECHIGA-SJP.VALERY 04/11 12:00:00 AM EDT - 05/02/2020 11:38:07 AM EDT [facility] Outpatient Attender: Yessi ARECHIGA-SJAdamVALERY 08/2019 12:00:00 AM EDT - 04/10/2020 02:13:38 PM EDT [facility] Immunizations Vaccine Date Status Description Data Source(s) COVID-19 dose #2 given elsewhere Unspecified 09/30/2020 11:3 0:00 AM EST completed eCW1 (Critical access hospital) COVID-19 dose #2 given elsewhere Unspecified 09/30/2020 11:3 0:00 AM EST completed eCW1 (Critical access hospital) COVID-19 VACCINE Pfizer 09/30/2020 12:00:00 AM EST completed [facility] Vaccine Series Complete: YESThis Data wa s Submitted to [facility] Via [facility]. COVID-19 dose #1 given elsewhere Unspecified 09/09/2020 11:2 9:00 AM EST completed eCW1 (Critical access hospital) COVID-19 dose #1 given elsewhere Unspecified 09/09/2020 11:2 9:00 AM EST completed eCW1 (Critical access hospital) COVID-19 VACCINE Pfizer 09/09/2020 12:00:00 AM EST completed [facility] Vaccine Series Complete: NOThis Data was Submitted to [facility] Via [employer]. influenza, recombinant, quadrIvalent,injectable, prese rvative free 06/25/2020 04:25:00 PM EST completed eCW1 ([facility]) influenza, recombinant, quadrIvalent,injectable, prese rvative free 06/25/2020 04:25:00 PM EST completed eCW1 ([facility]) influenza, recombinant, quadrIvalent,injectable, prese rvative free 06/25/2020 04:25:00 PM EST completed eCW1 ([facility]) influenza, recombinant, quadrIvalent,injectable, prese rvative free 06/25/2020 04:25:00 PM EST completed eCW1 ([facility]) influenza, recombinant, quadrIvalent,injectable, prese rvative free 06/25/2020 04:25:00 PM EST completed eCW1 ([facility]) influenza, recombinant, quadrIvalent,injectable, prese rvative free 06/25/2020 04:25:00 PM EST completed eCW1 ([facility]) Medications Medication Brand Name Start Date Product Form Dose Route Admi nistrative Instructions Pharmacy Instructions Status Indications Reaction Description Data Source(s) 125 mcg 06/19/2021 12:00:00 AM EST tablet 180 TAKE TWO TABLETS BY MOUTH EVERY MORNING ON AN EMPTY STOMACH TAKE TWO TABLETS BY MOUTH EVERY MORNING ON AN EMPTY STOMACH SOLD: 06/21/2021 [facility] Prednisone 10 MG Oral Tablet Prednisone 06/12/2021 12:00:00 AM EDT ORAL active MEDENT ([facility]) 10 mg 06/12/2021 12:00:00 AM EDT tablet 40 TAKE 4 TABLETS BY MOUTH DAILY FOR 4 DAYS, THEN TAKE 3 TABLETS DAILY FOR 4 DAYS, THEN TAKE 2 TABLETS BY MOUTH DAILY FOR 4 DAYS, THEN TAKE 1 TABLET DAILY FOR 4 DAYS AND STOP TAKE 4 TABLETS BY MOUTH DAILY FOR 4 DAYS, THEN TAKE 3 TABLETS DAILY FOR 4 DAYS, THEN TAKE 2 TABLETS BY MOUTH DAILY FOR 4 DAYS, THEN TAKE 1 TABLET DAILY FOR 4 DAYS AND STOP SOLD: 06/13/2021 [facility] atorvastatin 10 MG Oral Tablet ATORVASTATIN CALCIUM 05/24/2021 1 2:00:00 AM EDT tablet 90 TAKE ONE TABLET BY MOUTH NIGHTLY TAKE ONE TABLET BY MOUTH NIGHTLY SOLD: 05/25/2021 [facility] Furosemide 20 MG Oral Tablet furosemide (LASIX) 20 MG tablet furosemide (LASIX) 20 MG tablet 03/20/2021 12:00:00 AM EDT 20 mg Oral active Shortness of breath Take 1 tablet (20 mg total) by mouth zheng robb [facility] Shortness of breath 20 mg 03/20/2021 12:00:00 AM EDT tablet 90 TAKE ONE TABLET BY MOUTH EVERY DAY TAKE ONE TABLET BY MOUTH EVERY DAY SOLD: 03/21/2021 [facility] 20 mg 03/20/2021 12:00:00 AM EDT tablet 90 TAKE ONE TABLET BY MOUTH EVERY DAY TAKE ONE TABLET BY MOUTH EVERY DAY SOLD: 06/21/2021 [facility] 20 mg 02/03/2021 12:00:00 AM EDT capsule,delayed release (DR/EC) 90 TAKE ONE CAPSULE BY MOUTH EVERY DAY TAKE ONE CAPSULE BY MOUTH EVERY DAY SOLD: 02/06/2021 [facility] 20 mg 02/03/2021 12:00:00 AM EDT capsule,delayed release (DR/EC) 90 TAKE ONE CAPSULE BY MOUTH EVERY DAY TAKE ONE CAPSULE BY MOUTH EVERY DAY SOLD: 06/06/2021 [facility] 90 mcg/actuation 12/07/2020 12:00:00 AM EDT HFA aerosol inha ler 25 INHALE TWO PUFFS BY MOUTH FOUR TIMES A DAY NEEDED INHALE TWO PUFFS BY MOUTH FOUR TIMES A DAY NEEDED SOLD: 06/06/2021 [facility] 2.5 mcg/actuation 12/05/2020 12:00:00 AM EDT mist 12 INHALE TWO PUFFS ONCE DAILY INHALE TWO PUFFS ONCE DAILY SOLD: 06/06/2021 [facility] 160-4.5 mcg/actuation 10/22/2020 12:00:00 AM EDT HFA aerosol inhaler 30 INHALE TWO PUFFS BY MOUTH TWICE A DAY INHALE TWO PUFFS BY MOUTH TWICE A DAY SOLD: 10/25/2020 [facility] 160-4.5 mcg/actuation 10/22/2020 12:00:00 AM EDT HFA aerosol inhaler 30 INHALE TWO PUFFS BY MOUTH TWICE A DAY INHALE TWO PUFFS BY MOUTH TWICE A DAY SOLD: 06/21/2021 [facility] 60 ACTUAT Budesonide 0.16 MG/ACTUAT / fo rmoterol fumarate 0.0045 MG/ACTUAT Metered Dose Inhaler [Symbicort] Symbicort 10/20/2020 12:00:00 AM EST RESPIRATORY active MEDENT ( [facility], ) 200 ACTUAT Albuterol 0.09 MG/ACTUAT Metered Dose Inhaler [Pr oAir] Proair HFA 10/12/2020 12:00:00 AM EST RESPIRATORY active MEDENT ([facility], ) 90 mcg/actuation 10/12/2020 12:00:00 AM EST HFA aerosol inha ler 25 INHALE TWO PUFFS BY MOUTH FOUR TIMES A DAY NEEDED INHALE TWO PUFFS BY MOUTH FOUR TIMES A DAY NEEDED SOLD: 10/12/2020 [facility] 125 mcg 10/12/2020 12:00:00 AM EST tablet 180 TAKE TWO TABLETS BY MOUTH EVERY DAY ON AN EMPTY STOMACH IN THE MORNING TAKE TWO TABLETS BY MOUTH EVERY DAY ON AN EMPTY STOMACH IN THE MORNING SOLD: 10/16/2020 [facility] 125 mcg 10/12/2020 12:00:00 AM EST tablet 180 TAKE TWO TABLETS BY MOUTH EVERY DAY ON AN EMPTY STOMACH IN THE MORNING TAKE TWO TABLETS BY MOUTH EVERY DAY ON AN EMPTY STOMACH IN THE MORNING SOLD: 02/06/2021 [facility] montelukast 10 MG Oral Tablet MONTELUKAST SODIUM 10/12/2020 12:0 0:00 AM EST tablet 90 TAKE ONE TABLET BY MOUTH EVERY D AY IN THE EVENING TAKE ONE TABLET BY MOUTH EVERY DAY IN THE EVENING SOLD: 06/21/2021 [facility] montelukast 10 MG Oral Tablet MONTELUKAST SODIUM 10/12/2020 12:0 0:00 AM EST tablet 90 TAKE ONE TABLET BY MOUTH EVERY D AY IN THE EVENING TAKE ONE TABLET BY MOUTH EVERY DAY IN THE EVENING SOLD: 02/06/2021 [facility] montelukast 10 MG Oral Tablet MONTELUKAST SODIUM 10/12/2020 12:0 0:00 AM EST tablet 90 TAKE ONE TABLET BY MOUTH EVERY D AY IN THE EVENING TAKE ONE TABLET BY MOUTH EVERY DAY IN THE EVENING SOLD: 10/16/2020 [facility] 20 mg 10/10/2020 12:00:00 AM EST tablet 90 TAKE ONE TABLET BY MOUTH AT BEDTIME TAKE ONE TABLET BY MOUTH AT BEDTIME SOLD: 02/06/2021 [facility] 2 mg 10/10/2020 12:00:00 AM EST tablet 90 TAKE ONE TABLET BY MOUTH AT BEDTIME TAKE ONE TABLET BY MOUTH AT BEDTIME SOLD: 02/06/2021 [facility] Memantine hydrochloride 10 MG Oral Tablet MEMANTINE HCL 10/10/2020 12:00:00 AM EST tablet 180 TAKE ONE TABLET BY MOUTH TWI CE A DAY TAKE ONE TABLET BY MOUTH TWICE A DAY SOLD: 10/12/2020 [facility] Memantine hydrochloride 10 MG Oral Tablet MEMANTINE HCL 10/10/2020 12:00:00 AM EST tablet 180 TAKE ONE TABLET BY MOUTH TWI CE A DAY TAKE ONE TABLET BY MOUTH TWICE A DAY SOLD: 02/06/2021 [facility] 2 mg 10/10/2020 12:00:00 AM EST tablet 90 TAKE ONE TABLET BY MOUTH AT BEDTIME TAKE ONE TABLET BY MOUTH AT BEDTIME SOLD: 10/12/2020 [facility] 20 mg 10/10/2020 12:00:00 AM EST tablet 90 TAKE ONE TABLET BY MOUTH AT BEDTIME TAKE ONE TABLET BY MOUTH AT BEDTIME SOLD: 10/12/2020 [facility] Memantine hydrochloride 10 MG Oral Tablet MEMANTINE HCL 10/10/2020 12:00:00 AM EST tablet 180 TAKE ONE TABLET BY MOUTH TWI CE A DAY TAKE ONE TABLET BY MOUTH TWICE A DAY SOLD: 06/21/2021 [facility] Albuterol 0.833 MG/ML / Ipratropium Metuchen 0.167 MG/M L Inhalant Solution Ipratropium [place]uchen/Albuterol Sulfate 09/11/2020 12:00:00 AM EST active [facility] ([facility], ) 0.5 mg-3 mg(2.5 mg base)/3 mL 09/11/2020 12:00:0 0 AM EST solution for nebulization 540 INHALE THE CONTENTS OF ONE VIAL VIA NEBULIZER FOUR TIMES A DAY INHALE THE CONTENTS OF ONE VIAL VIA NEBULIZER FOUR GARCIA ES A DAY SOLD: 09/11/2020 [facility] 2.5 mcg/actuation 09/11/2020 12:00:00 AM EST mist 4 INHALE TWO PUFFS BY MOUTH EVERY DAY INHALE TWO PUFFS BY MOUTH EVERY DAY SOLD: 10/12/2020 [facility] 2.5 mcg/actuation 09/11/2020 12:00:00 AM EST mist 4 INHALE TWO PUFFS BY MOUTH EVERY DAY INHALE TWO PUFFS BY MOUTH EVERY DAY SOLD: 09/11/2020 [facility] 160-4.5 mcg/actuation 07/03/2020 12:00:00 AM EST HFA aerosol inhaler 30 INHALE TWO PUFFS BY MOUTH TWICE A DAY INHALE TWO PUFFS BY MOUTH TWICE A DAY SOLD: 07/04/2020 [facility] 60 ACTUAT Budesonide 0.16 MG/ACTUAT / fo rmoterol fumarate 0.0045 MG/ACTUAT Metered Dose Inhaler Budesonide/Formoterol Fumarate Dihydrate 07/02/2020 12:00:00 AM EST RESPIRATORY completed [facility] ([facility], ) 20 mg 06/21/2020 12:00:00 AM EST capsule,delayed release (DR/EC) 90 TAKE ONE CAPSULE BY MOUTH EVERY DAY TAKE ONE CAPSULE BY MOUTH EVERY DAY SOLD: 10/16/2020 [facility] 20 mg 06/21/2020 12:00:00 AM EST capsule,delayed release (DR/EC) 90 TAKE ONE CAPSULE BY MOUTH EVERY DAY TAKE ONE CAPSULE BY MOUTH EVERY DAY SOLD: 06/22/2020 [facility] 90 mcg/actuation 06/08/2020 12:00:00 AM EDT HFA aerosol inha ler 18 INHALE TWO PUFFS BY MOUTH FOUR TIMES A DAY NEEDED INHALE TWO PUFFS BY MOUTH FOUR TIMES A DAY NEEDED SOLD: 08/07/2020 [facility] 90 mcg/actuation 06/08/2020 12:00:00 AM EDT HFA aerosol inha ler 18 INHALE TWO PUFFS BY MOUTH FOUR TIMES A DAY NEEDED INHALE TWO PUFFS BY MOUTH FOUR TIMES A DAY NEEDED SOLD: 06/16/2020 [facility] 200 ACTUAT Albuterol 0.09 MG/ACTUAT Metered Dose Inhal er [Ventolin] Ventolin HFA 06/07/2020 12:00:00 AM EDT RESPIRATORY active [facility] ([facility], ) Acetaminophen 325 MG / Hydrocodone Chencho trate 5 MG Oral Tablet [Harrington] Harrington 5- 325 MG Harrington 5-325 MG 05/28/2020 12:00:00 AM EDT 1.0 {tablet_as_needed} active Harrington 5-325 MG eCW1 ([facility]) Acetaminophen 325 MG / Hydrocodone Chencho trate 5 MG Oral Tablet [Harrington] Harrington 5- 325 MG Harrington 5-325 MG 05/28/2020 12:00:00 AM EDT 1.0 {tablet_as_needed} active Harrington 5-325 MG eCW1 ([facility]) Acetaminophen 325 MG / Hydrocodone Chencho trate 5 MG Oral Tablet [Harrington] Harrington 5- 325 MG Harrington 5-325 MG 05/28/2020 12:00:00 AM EDT 1.0 {tablet_as_needed} active Harrington 5-325 MG eCW1 ([facility]) Acetaminophen 325 MG / Hydrocodone Chencho trate 5 MG Oral Tablet [Harrington] Harrington 5- 325 MG Harrington 5-325 MG 05/28/2020 12:00:00 AM EDT 1.0 {tablet_as_needed} active [place]rington 5-325 MG eCW1 ([facility]) 5-325 mg 05/28/2020 12:00:00 AM EDT tablet 28 TAKE ONE TABLET BY MOUTH EVERY 6 HOURS NEEDED MAX=4TABS/DAY TAKE ONE TABLET BY MOUTH EVERY 6 HOURS A S NEEDED MAX=4TABS/DAY SOLD: 05/29/2020 [facility] 20 mg 03/21/2020 12:00:00 AM EDT tablet 90 TAKE ONE TABLET BY MOUTH AT BEDTIME TAKE ONE TABLET BY MOUTH AT BEDTIME SOLD: 07/04/2020 [facility] 2 mg 03/21/2020 12:00:00 AM EDT tablet 90 TAKE ONE TABLET BY MOUTH AT BEDTIME TAKE ONE TABLET BY MOUTH AT BEDTIME SOLD: 07/04/2020 [facility] Memantine hydrochloride 10 MG Oral Tablet MEMANTINE HCL 02/07/2020 12:00:00 AM EDT tablet 180 TAKE ONE TABLET BY MOUTH TWI CE A DAY TAKE ONE TABLET BY MOUTH TWICE A DAY SOLD: 06/22/2020 [facility] 200 ACTUAT Albuterol 0.09 MG/ACTUAT Metered Dose Inhaler [Pr oAir] Proair HFA 02/06/2020 12:00:00 AM EDT RESPIRATORY completed [facility] ([facility], ) 2.5 mcg/actuation 02/05/2020 12:00:00 AM EDT mist 4 INHALE TWO PUFFS BY MOUTH EVERY DAY INHALE TWO PUFFS BY MOUTH EVERY DAY SOLD: 07/04/2020 [facility] 125 mcg 01/24/2020 12:00:00 AM EDT tablet 180 TAKE TWO TABLETS BY MOUTH EVERY MORNING ON AN EMPTY STOMACH- TOTAL DAILY DOSE OF 250MCG TAKE TWO TABLETS BY MOUTH EVERY MORNING ON AN EMPTY STOMACH- TOTAL DAILY DOSE OF 250MCG SOLD: 06/22/2020 [facility] montelukast 10 MG Oral Tablet MONTELUKAST SODIUM 11/23/2019 12:0 0:00 AM EDT tablet 90 TAKE ONE TABLET BY MOUTH EVERY D AY IN THE EVENING TAKE ONE TABLET BY MOUTH EVERY DAY IN THE EVENING SOLD: 07/04/2020 [facility] ropinirole 1 MG Oral Tablet rOPINIRole (REQUIP) 1 MG t ablet rOPINIRole (REQUIP) 1 MG tablet 1 mg Oral aborted Take 1 mg by mouth 3 (three) times a day [facility] Insurance Providers Payer name Policy type / Coverage type Policy ID Covered libertarian ID Covered libertarian's relationship to hitchcock Policy Hitchcock Plan Information POMCO [id number] SPO [id number] POMCO U [id number] Spouse [id number] POMCO [id number] HU2 [id number] POMCO [id number] Spo [id number] POMCO U [id number] Self [id number] MEDICARE A [id number] Self [id number] D [place] Medicare Primary [id number] Self [id number] MEDICARE [id number] Savita [id number] [place] [id number] S [id number] Medicare - [place] Medicare Primary [id number] Self 0 [id number] [place] [id number] S [id number] MEDICARE [id number] SP [id number] D Medicare [place] Medicare Primary [id number] Self [id number] MEDICARE [id number] MEDICARE A [id number] Self [id number] P38 [place] [employer] [id number] S [id number] MEDICARE [id number] Savita [id number] D Medicare [place] Primary [id number] Self [place] (pr) [facility] Part B [id number] Family Dependent UMR U [id number] Self [id number] UMR U [id number] Self [id number] Umr Commercial [id number] Family Dependent [id number] UMR U [id number] Spouse [id number] UMR [id number] Savita [id number] UMR [id number] ANSI-Medicare Part B [id number] MEDICARE [id number] D POMCO [id number] SPO [id number] UMR [id number] SPO [id number] ANSI-Commercial [id number] ANSI-Medicare Part B [id number] ANSI-Commercial [id number] ANSI-Commercial [id number] ANSI-Commercial [id number] ANSI-Medicare Part B [id number] ANSI-Medicare Part B [id number] ANSI-Commercial [id number] ANSI-Commercial [id number] ANSI-Commercial [id number] ANSI-Commercial [id number] ANSI-Medicare Part B [id number] POMCO [id number] SP [id number] Pom[place] Medigap Part B [id number] Family Dependent [id number] [place] [employer] [id number] S [id number] [place] [id number] S [id number] [place] Pos Commercial [id number] Family Dependent [id number] [place] Medigap Part B [id number] Self [id number] Medicare [place] Medicare Primary [id number] Self [id number] [facility] C [id number] S [id number] POMCO PPO O [id number] S [id number] MEDICARE C [id number] S [id number] D [place]IC[place] [facility] [id number] S [id number] [facility] [id number] SP [id number] MEDICARE [id number] SP [id number] P38 [employer] [place] Other 0 [id number] Self 0 Medicare Part B [facility] Other 0 [id number] Self 0 UMR [facility] [id number] SP [id number] UMR O [id number] P [id number] MEDICARE C [id number] S [id number] P38 UMR O [id number] P [id number] UMR O [id number] P [id number] [employer] [place] Other 0 [id number] Self 0 Medicare Part B [facility] Other 0 [id number] Self 0 UMR O [id number] P [id number] [employer] [place] Other 0 [id number] Self 0 Medicare Part B [facility] Other 0 [id number] Self 0 UMR [facility] CARE [id number] WI2 [id number] ANSI-Commercial [id number] ANSI-Medicare Part B [id number] ANSI-Commercial [id number] ANSI-Commercial [id number] ANSI-Commercial [id number] ANSI-Medicare Part B [id number] UMR [id number] [facility] [id number] [place] [employer] [id number] ANSI-Commercial [id number] ANSI-Commercial [id number] Problems, Conditions, and Diagnoses Code Display Name Description Problem Type Effective Dates Data Source(s) Z99.89 Dependence on other enabling machines an d devices Dependence on other enabling machines an Diagnosis 05/01/2021 01:54:27 PM EDT [facility] G47.33 Obstructive sleep apnea (adult) (pediatr ic) Obstructive sleep apnea (adult) (pediatr Diagnosis 05/01/2021 01:54:27 PM EDT [facility] R03.0 Elevated blood-pressure reading, without diagnosis of hypertension Elevated blood-pressure reading, without Diagnosis 05/01/2021 01:54:27 PM EDT [facility] R07.9 Chest pain, unspecified Chest pain, unspecified Diagno sis 05/01/2021 01:54:27 PM EDT [facility] F17.200 Nicotine dependence, unspecified, uncomp licated Nicotine dependence, unspecified, uncomp Diagnosis 05/01/2021 01:54:27 PM EDT [facility] R55 Syncope and collapse Syncope and collapse Diagnosis 05/01/2021 01:54:27 PM EDT [facility] Z13.220 Encounter for screening for lipoid disor ders Encounter for screening for lipoid disor Diagnosis 05/01/2021 01:54:27 PM EDT [facility] R06.02 Shortness of breath Shortness of breath Diagnosis 0 03/20/2021 08:24:08 AM EDT [facility] Z12.31 Encounter for screening mammogram for ma lignant neoplasm of breast Encounter for screening mammogram for malignant neoplasm of breast Diagnosis 12/21/2020 11:30:00 AM EDT [facility] Z13.220 Screening for lipid disorders Screening for lipid diso rders [id number] 05/01/2021 12:00:00 AM EDT [facility] G47.33 HUBERT on CPAP HUBERT on CPAP [id number] 05/01/2021 12:00:00 AM EDT [facility] R55 Syncope Syncope [id number] 03/20/2021 12:00:00 AM ED T [facility] R03.0 Elevated blood pressure read ing in office without diagnosis of hypertension Elevated blood pressure reading in offic e without diagnosis of hypertension [id number] 03/20/2021 12:00:00 AM EDT [facility] 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 Problem 01/21/2021 12:00 :00 AM EDT eCW1 ([facility]) F32.0 [id number] Current mild episode of major depressive disorder without prior episode Problem 07/26/2020 12:00:00 AM EST eCW1 (Counts include [facility] beds at the [facility]) D72.825 [id number] Bandemia Problem 05/28/2020 12:00:00 AM ED T eCW1 ([facility]) Surgeries/Procedures Procedure Description Date Indications Data Source(s) ECG ROUTINE ECG W/LEAST 12 LDS W/I&R <td>POCT AMB EKG</td><td>Routine</td><td>05/01/2021 3:23 PM EDT</td><td> Chest pain, unspecified type</td><td> </td> 05/01/2021 03:23:00 PM EDT Chest pain, unspecified type [facility] Chest pain, unspecified type Plethysmography Determination Lung Volumes & Per Airway Resi st 04/18/2021 12:00:00 AM EDT [facility] ([facility]) DIFFUSING CAPACITY 04/18/2021 12:00:00 AM EDT [facility] ([facility]) Bronchospasm Evaluation 04/18/2021 12:00:00 AM EDT [facility] ([facility], ) HEPATIC FUNCTION PANEL <td>HEPATIC FUNCTION PANEL</td><td>Routine</td><td>04/10/2021</td><td></td><td> </td> 04/10/2021 12:00:00 AM EDT [facility] BASIC METABOLIC PANEL CALCIUM TOTAL <td>BASIC METABOLI C PANEL</td><td>Routine</td><td>04/10/2021</td><td></td><td> </td> 04/10/2021 12:00:00 AM EDT [facility] OFFICE OUTPATIENT VISIT 15 MINUTES 03/25/2021 12:00:00 AM EDT [facility] ECG ROUTINE ECG W/LEAST 12 LDS W/I&R <td>POCT AMB EKG</td><td>Routine</td><td>03/20/2021 9:10 AM EDT</td><td> Chest pain, unspecified type</td><td> </td> 03/20/2021 09:10:00 AM EDT Chest pain, unspecified type [facility] Chest pain, unspecified type OFFICE OUTPATIENT VISIT 25 MINUTES 01/22/2021 12:00:00 AM EDT [facility] ([facility], ) BLOOD COUNT COMPLETE AUTO&AUTO DIFRNTL WBC COUNT <td>C BC AND DIFFERENTIAL</td><td>Routine</td><td>01/21/2021</td><td></td><td> </td> 01/21/2021 12:00:00 AM EDT [facility] THYROID STIMULATING HORMONE TSH <td>TSH</td><td>Routine</td><td>01/21/2021</td><td></td><td> </td> 01/21/2021 12:00:00 AM EDT [facility] HEPATIC FUNCTION PANEL <td>HEPATIC FUNCTION PANEL</td><td>Routine</td><td>01/21/2021</td><td></td><td> </td> 01/21/2021 12:00:00 AM EDT [facility] BASIC METABOLIC PANEL CALCIUM TOTAL <td>BASIC METABOLI C PANEL</td><td>Routine</td><td>01/21/2021</td><td></td><td> </td> 01/21/2021 12:00:00 AM EDT [facility] Spirometry 12/04/2020 12:00:00 AM EDT [facility] ([facility], ) OFFICE OUTPATIENT VISIT 25 MINUTES 12/04/2020 12:00:00 AM EDT [facility] ([facility], ) OFFICE OUTPATIENT VISIT 25 MINUTES 10/10/2020 12:00:00 AM EST [facility] ([facility] ) Spirometry 09/11/2020 12:00:00 AM EST [facility] ([facility], ) Immunization: Flublok Quadrivalent (18 years & older) 0.5mL IM (Influenza) 06/25/2020 12:00:00 AM EST eCW1 ([facility]) Spirometry 06/07/2020 12:00:00 AM EDT M [facility] ([facility], ) Results ID Date Data Source [id number] 06/02/2021 11:15:25 PM EDT [facility] Name Value Range Interpretation Code Description Data Carmel rce(s) Supporting Document(s) &PDF [facility] OFXJAp9yAkDZMsWy37/ERPxrAAEep1CbXRsrCNk0HHruVTGjU4RkuUazPUWUYB0OSexUEORZOZGhIHNo vci [file] AgICAgICAgICAgICAgICAgICAgICAgICAgICAgICAg ICAgICAgICAgICAgICAgICAgICAgICAgICAgICAgICAgDQogICAgICAgICAgICAgICAgICAgICAgICAg ICAgICAgICAgICAgICAgICAgICAgICAgICAgICAgICAgICAgICAgICAgICAgICAgICAgICAgICAgICAg ICAgICAgICAgICAgICAgDQogICAgICAgICAgICAgIC AgICAgICAgICAgICAgICAgICAgICAgICAgICAgICAgICAgICAgICAgICAgICAgICAgICAgICAgICAgIC AgICAgICAgICAgICAgICAgICAgICAgICAgDQogICAgICAgICAgICAgICAgICAgICAgICAgICAgICAgIC AgICAgICAgICAgICAgICAgICAgICAgICAgICAgICAg ICAgICAgICAgICAgICAgICAgICAgICAgICAgICAgICAgICAgDQogICAgICAgICAgICAgICAgICAgICAg ICAgICAgICAgICAgICAgICAgICAgICAgICAgICAgICAgICAgICAgICAgICAgICAgICAgICAgICAgICAg ICAgICAgICAgICAgICAgICAgDQogICAgICAgICAgIC AgICAgICAgICAgICAgICAgICAgICAgICAgICAgICAgICAgICAgICAgICAgICAgICAgICAgICAgICAgIC AgICAgICAgICAgICAgICAgICAgICAgICAgICAgDQogICAgICAgICAgICAgICAgICAgICAgICAgICAgIC AgICAgICAgICAgICAgICAgICAgICAgICAgICAgICAg ICAgICAgICAgICAgICAgICAgICAgICAgICAgICAgICAgICAgICAgDQogICAgICAgICAgICAgICAgICAg ICAgICAgICAgICAgICAgICAgICAgICAgICAgICAgICAgICAgICAgICAgICAgICAgICAgICAgICAgICAg ICAgICAgICAgICAgICAgICAgICAgDQogICAgICAgIC AgICAgICAgICAgICAgICAgICAgICAgICAgICAgICAgICAgICAgICAgICAgICAgICAgICAgICAgICAgIC AgICAgICAgICAgICAgICAgICAgICAgICAgICAgICAgDQogICAgICAgICAgICAgICAgICAgICAgICAgIC AgICAgICAgICAgICAgICAgICAgICAgICAgICAgICAg VOWxUCTsARKaGNFyNGNdWUVaJKGlPKLnDXKrTYLlRUStVBJaUPZiXIVzGBs2G3vlUZOaIDMwHU9rSQj4 Jz8+RRtPAbKqKGT3oiWtkG9DTW5vz0DdFNfcHYBpf9HsAAo1GS8QBBJnMPscCS0SRBsuyl6IJANeUVNo mMZEk8znRdYvIBH9ZXSxObacXT9FIECxT0rptsXcTD FvFVYFRSzfKZBRSEywWOPDUUGuZMToTeJwKUgwKZ3Hb3JqfJH2CAr+Xs6AOG2qy8ZeOVf0TzVlCD8gqk 9ZVZjXObQrN4J9uXKpH7Y2XGgjNe3WBTBxWNHrFMCjSDTNPUejSO7SJW0mrhA5EP8PfYTpMLSxJEQjhU NoEBx0D53luHZfRNmaQI5AMGV+Neyda+Pe6IKWTbNCYg EQCpRjBvPMATAvKkC79gkGLoVEFyQRM5BNHuFv7SKRLbR3CqgiBdtPcmjrSsXADtPHDSCG7IEFmqfxDu cBHfzGucQZ94vQzdCR9MNs4VGaUkLR6dat3ZuJBhKp2TJQL2Cp3QRTXfLMGmJDUjTLG8CEMcFhMlCCxh ZLVjQBNfZDY2ISBzJRGfAB5SDuVoKOSiLid3TQkjTK UmZQNsgi8JETMqIYBxAUW7FmCtVTOpJAHsJHfzLWUwYHVaJYnlNJSdRKDeWN3HOhHaQWGlHZL2BpIvWE FmBPAaey5FZBDoIUWbRqj1FHCuJEWzYSYnXXqgNKEyZHU7PIr4LCLuOOZbGU6REdXqOAQkBLo7JDKtDK GsQLDhxp2LGXOaADXcMCn5AiUbZCLaFRZpSCxbAUFw BMKwIRe4SUYgLVGoKX5ZWuLvXPCjXALaPvZpJKHkGLGsjm3RSRPgYKYyTEQ9PXIlBEZiLGQlHCdhVHIq HCX9MyMlJHLoVTBiVN8YUrCnDUIfRYPoOSnkUICqAYXjwg7MGKLzQEJpHfV6KJEhZWYhDARuXDuuKSAc YXL3SAO8HOPoZFYtNW3YFjGlTBCbTTi9AGCmNLAnBH Ufdz5DIYDnQDOqHoazOPOhLZYhCEOtMPgpMTHvWTWyPtc9PSFkYLBzYG8PVqNoZSQiTzRxUXZmYIWqSC Twry5UCWJgWQHzZxQuUDDrJPPtXDMeFRwnUBDqNYGkRMP1LDOqKYBfEX8FVaZzKCKmWtG0SFWjZJRdME Rmek6WOOZfDWNcSUO5GfYwGXGwIBLoTTkvOUYfBAH3 VSU4ZCOlKVBuCL6IInBlGTTiPpUlLATbDUDzUBQfxa2JSTMxCKFxECg0PlJiOPSlPVLhROmoBWDiADF6 ZPG8QUZqXKZiRG3GSdMqJTWiJcPjAPMyJWDrAFRxzn9YHXQySSDiVlW1MlQiTMYsFMEiOZsvIIFeLJR3 OHY1MDZjOZMcBH2SKuOhSAWlXol2BImyCQKyTFIkqk 7FMDBnWRIbZcyaNpTwJNIyPQQoIJwbUVFzOQU2GtP1DJQuVALiWI3CVeEwYSApAde1OFYuAATgPFDfib 8NLBIbZOPyLHt9RVYrMFKmKKOpIMvgPCTrJMX8VRt9PKCzJQPuNT0HEaIlJKRiDamoCAitXYXyTNNtvv 2SIZVrVOTuILDeNjNnTIHoGBGoQEekOHRzCYK5TBU3 YSSyUOVvIZ8QRvIaQTGsIlG4EFRgSVUrWSLihe6WCANuURFlOrp5GWHpTIFuSUKvRWgkXKLpPYZ2GsV6 ULOqPQRaXJ9GKlWuCBHnQfl9CiVuPJVeRSEztg6NVSCzQLPpHBBfJxScEFCkVIMtVQwxPZDlIUV3EXdd VYSeVTKiVA3DSmCmZBlyERDTMpi6KXicC6m5DXV0Ok 8UI4Kwy5DzMTBzADPIDCxmFE9ptpEvIAAiEq0AK8sJOjrjNHScCMH7OJppAKkmOQP5XCYeKkE8RiZ0Uu KjAiUfRb3xHZFlHkL7WSWvJUJqXGKsIXD1GGRnWEmsBTogWUB4WZS6LkSnSU8FDl6QMhG7REZ8iYXxPs 5ICsn4GFQUPtDjOB6TNXu= ID Date Data Source VITAMIN B12 LEVEL 01/21/2021 12:00:00 AM EDT eCW1 (Counts include 234 beds at the [facility]) Name Value Range Interpretation Code Description Data Carmel rce(s) Supporting Document(s) [phone] VITAMIN B12 LEVEL eCW1 ([facility]) ID Date Data Source TSH 01/21/2021 12:00:00 AM EDT eCW1 (Counts include 234 beds at the [facility]) Name Value Range Interpretation Code Description Data Carmle rce(s) Supporting Document(s) 4.330 0.358-3.740 THYROID STIMULATING HORM ONE eCW1 ([facility]) ID Date Data Source Comprehensive Metabolic Profile (CMP) 01/21/2021 12:00:00 AM EDT eCW1 ([facility]) Name Value Range Interpretation Code Description Data Carmel rce(s) Supporting Document(s) 81 70-100 GLUCOSE, FASTING eCW1 (Counts include 234 beds at the [facility]) 18 7-18 BLOOD UREA NITROGEN eCW1 ([facility]) 0.73 0.55-1.30 CREATININE FOR GFR eCW1 ([facility]) 4.8 3.5-5.1 POTASSIUM SERUM eCW1 ([facility]) 142 136-145 SODIUM LEVEL eCW1 ([facility]) > 60.0 >39 GLOMERULAR FILTRATION RATE eCW 1 ([facility]) 34 21-32 CARBON DIOXIDE LEVEL eCW1 ([facility]) 8.8 8.8-10.2 CALCIUM LEVEL eCW1 ([facility]) 106 98-107 CHLORIDE LEVEL eCW1 ([facility]) 94 45-117 ALKALINE PHOSPHATASE eCW1 ([facility]) 12 7-37 AST/SGOT eCW1 ([facility]) 0.5 0.2-1.0 BILIRUBIN,TOTAL eCW1 ([facility]) 24 12-78 ALT/SGPT eCW1 ([facility]) 3.5 3.2-5.2 ALBUMIN eCW1 ([facility]) 1.2 1.2-2.2 ALBUMIN/GLOBULIN RATIO eCW1 ([facility]) 6.4 6.4-8.2 TOTAL PROTEIN eCW1 ([facility]) ID Date Data Source CBC with Differential 01/21/2021 12:00:00 AM EDT eCW1 ([facility]) Name Value Range Interpretation Code Description Data Carmel rce(s) Supporting Document(s) 6.7 4.0-10.0 WHITE BLOOD COUNT eCW1 ([facility]) 98.5 80.0-96.0 MEAN CORPUSCULAR VOLUME e CW1 ([facility]) 51.2 36.0-47.0 HEMATOCRIT eCW1 ([facility]) 5.20 4.00-5.40 RED BLOOD COUNT eCW1 ([facility]) 16.5 12.0-15.5 HEMOGLOBIN eCW1 ([facility]) 31.7 27.0-33.0 MEAN CORPUSCULAR HEMOGLOB IN eCW1 ([facility]) 32.2 32.0-36.5 MEAN CORPUSCULAR HGB CONC eCW1 ([facility]) 12.7 11.5-14.5 RED CELL DISTRIBUTION WID TH eCW1 ([facility]) 69.6 36.0-66.0 NEUTROPHILS % eCW1 ([facility]) 16.6 24.0-44.0 LYMPH % eCW1 ([facility]) 10.1 2.0-8.0 MONO % eCW1 ([facility]) 278 150-450 PLATELET COUNT, AUTOMATED eCW1 ([facility]) 1.3 0.0-1.0 BASO % eCW1 ([facility]) 2.1 0.0-3.0 EOS % eCW1 ([facility]) 4.7 1.5-8.5 NEUTROPHILS # eCW1 ([facility]) 0.1 0.0-0.2 BASO # eCW1 ([facility]) 1.1 1.5-5.0 LYMPH # eCW1 ([facility]) 0.7 0.0-0.8 MONO # eCW1 ([facility]) 0.1 0.0-0.5 EOS # eCW1 ([facility]) ID Date Data Source [id number] 12/26/2020 11:45:15 AM [facility] MAMMO DIGITAL SCREENING BILATERAL [id number] INAL RESULTInterpreted by:Naye Diaz MDBILATERAL SCREENING DIGITAL MAMMOGRAM WITH COMPUTER-AIDED DETECTIONINDICATION: Screening mammogram.COMPARISON: None. Patient reports prior mammograms performed at an outside facility, however no prior mammograms could be retrieved at the time of this dictation.LAST CLINICAL BREAST EXAM: Probably 5-6 years ago as reported by the patient. Date not otherwise specified.[employer] [place] Risk Assessment Es Model5-Year RiskPatient risk: 3.1%Average risk: 2.2% Lifetime RiskPatient risk: 7.9% Average risk: 5.7%TECHNIQUE: Bilateral craniocaudal and mediolateral oblique digital mammograms were obtained with tomosynthesis. Computer-aided detection was utilized. This mammogram was performed on the mobile mammography unit.FINDINGS: The breasts are heterogeneously dense, which may obscure small masses. Density category C. No suspicious masses, suspicious calcifications, or areas of architectural distortion are seen in either breast. IMPRESSION:No mammographic evidence of malignancy.BI-RADS 1 - NegativeRecommendation: 1. Annual screening mammogram.2. Supplemental screening with bilateral breast ultrasound could also be considered for mammographically dense breasts.This document has been electronically signed by Naye Diaz MD on 12/26/2020 11:43 AM Name Value Range Interpretation Code Description Data Carmel rce(s) Supporting Document(s) ID Date Data Source [id number] 08/27/2020 12:00:00 AM EST [facility] Suleman Barrios MD Patient Name: NIK [id number] [facility] Date of : 1950[place] Date of Exam: 08/27/2020[place] [id number]#: Fax: [phone] EXAM: CT THORAX WITHOUT CONTRASTCLINICAL INFORMATION: Followup pulmonary nodule.All priors were reviewed. The latest of which is dated 06/01/2020.Low dose [address] scanning of the chest was obtained using 3 mmincrements and reconstructed in both coronal and sagittal scan planes.The latest prior PET CT of 02/07/2020 showed a hypermetabolic nodule and a1 cm sized nodule in the right upper lobe.The mediastinum and pulmonary keri have not changed significantly comparedto the latest prior CT of 06/01/2020. There are no pleural or pericardialeffusions. There is a stable mixed density right adrenal gland nodule andstable benign appearing left adrenal gland thickening. There is nosignificant change in appearance of the imaged osseous structures.Evaluation of the lung lee shows a macroboscilated nodule in the rightupper lobe which has increased in size and has increased in degree ofspiculation which today measures 2 x 2.9 x 1.6 cm. Once again, there islung field hyperexpansion with scattered parenchymal bulla and pleuralblebs essentially unchanged.IMPRESSION:Somewhat spiculated nodule in the right upper lobe continues to increase insize as described above. LUNG RADS Category 4X lesion.Accredited by the [employer] in [place].Maurice Hardy, JOHN PAULJLucho/slmThank you for referring ALEXEY RIZZO to our office. Electronically Signed - MAURICE HARDY DO 08/27/20 16:55 Name Value Range Interpretation Code Description Data Carmel rce(s) Supporting Document(s) ID Date Data Source [id number] 06/01/2020 12:00:00 AM EDT [facility] Suelman Barrios MD Patient Name: ALEXEY RIZZO [id number] [facility] Date of : 1950[place] Date [facility] Exam: [facility] [id number]#: Fax: [phone] EXAM: CT THORAX WITHOUT CONTRASTCLINICAL INFORMATION: Followup new 9 x 12 mm sized irregular nodule in theright upper lobe.64 slice low dose helical CT scanning was obtained throughout the thoraxwithout intravenous contrast along with sagittal and coronalreconstructions. Ilogic protocol was utilized.Comparison to all, the latest 02/22/2020.There is no significant change in the appearance of the mediastinum,pulmonary keri, imaged upper abdomen, or imaged osseous structures.Evaluation of the lung lee again shows an increase in size in the rightupper lobe nodule which is now spiculated and measures approximately 1.7 x1.7 x 1.1 cm. The lung lee are otherwise completely unchanged.IMPRESSION:Lung Rads Category 4X right upper lobe nodule as described above.According to the revised Fleischner Society criteria, since the solidcomponent is greater than or equal to 8 mm, CT PET may be used in lieu oftissue sampling at this time.Accredited by the [employer] in [place].EVETTE Dubois/Janell brunner for referring ALEXEY RIZZO to our office. Electronically Signed - MAURICE HARDY DO 06/01/20 16:58 Name Value Range Interpretation Code Description Data Carmel rce(s) Supporting Document(s) ID Date Data Source HEPATITIS PROFILE ACUTE 05/28/2020 02:29:29 AM EDT eCW1 ([facility]) Name Value Range Interpretation Code Description Data Carmel rce(s) Supporting Document(s) NEGATIVE HEPATITIS B CORE ANTIBODY IGM eCW1 ([facility]) 0.1 HEPATITIS C VIRUS [place] INDEX eC W1 ([facility]) NEGATIVE HEPATITIS A ANTIBODY IGM eCW1 ([facility]) NEGATIVE HEPATITIS B SURFACE ANTIG EN eCW1 ([facility]) Procedure Social History Code Duration Value Status Description Data Source(s ) Alcohol intake 05/01/2021 12:00:00 AM EDT Current drinker of al cohol (finding) completed Current drinker of alcohol (finding) [facility] Alcohol intake 03/20/2021 12:00:00 AM EDT Current drinker of al cohol (finding) completed Current drinker of alcohol (finding) [facility] Smoking 01/21/2021 12:00:00 AM EDT Current Smoker completed Curre nt Smoker eCW1 ([facility]) Smoking 01/21/2021 12:00:00 AM EDT Current Smoker completed Curre nt Smoker eCW1 ([facility]) Alcohol intake 12/21/2020 12:00:00 AM EDT Current drinker of al cohol (finding) completed Current drinker of alcohol (finding) [facility] Tobacco use and exposure 12/21/2020 12:00:00 AM EDT Never used co mpleted Never used [facility] Smoking 12/21/2020 12:00:00 AM EDT Current every day smoker co mpleted Current every day smoker [facility] Smoking 07/26/2020 12:00:00 AM EST Current Smoker completed Curre nt Smoker eCW1 ([facility]) Smoking 07/26/2020 12:00:00 AM EST Current Smoker completed Curre nt Smoker eCW1 ([facility]) Smoking 07/26/2020 12:00:00 AM EST Current Smoker completed Curre nt Smoker eCW1 ([facility]) Smoking 05/28/2020 12:00:00 AM EDT Current Smoker completed Curre nt Smoker eCW1 ([facility]) Smoking 05/28/2020 12:00:00 AM EDT Current Smoker completed Curre nt Smoker eCW1 ([facility]) Smoking 05/28/2020 12:00:00 AM EDT Current Smoker completed Curre nt Smoker eCW1 ([facility]) Smoking 05/28/2020 12:00:00 AM EDT Current Smoker completed Curre nt Smoker eCW1 ([facility]) Vital Signs ID Date Data Source UNK Name Value Range Interpretation Code Description Data Source(s) Body height 67.5 [in_i] 67.5 [in_i] [facility] ([facility]) 5'7.50" Body weight 1994.00 [lb_av] 1994.00 [lb_av] [facility] ([facility]) Body mass index (BMI) [Ratio] 307.7 kg/m2 307.7 kg/m2 [facility] ([facility]) [place] body weight 135 [lb_av] 135 [lb_av] MED[facility] T ([facility]) Body weight 904.478 kg 904.478 kg [facility] ([facility]) Body surface area Derived from formula 5.40 m2 5.40 m2 [facility] ([facility]) Systolic blood pressure 120 mm[Hg] 120 mm[Hg[facility] Diastolic blood pressure 72 mm[Hg] 72 mm[Hg] [facility] ([facility]) Heart rate 89 /min 89 /min [facility] ([facility]) Oxygen saturation in Arterial blood by Pulse oximetry 93 % 93 % [facility] ([facility]) Respiratory rate 18 /min 18 /min [facility] ( [facility]) Systolic blood pressure 116 mm[Hg] 116 mm[Hg] [facility] Diastolic blood pressure 66 mm[Hg] 66 mm[Hg] [facility] Heart rate 87 /min 87 /min [facility] Respiratory rate 22 /min 22 /min [facility] Body height 172.7 cm 172.7 cm [facility] Body weight 90.266 kg 90.266 kg [facility] Body mass index (BMI) [Ratio] 30.26 kg/m2 30.26 kg/m2 [facility] Oxygen saturation in Arterial blood by Pulse oximetry 90 % 90 % [facility] Systolic blood pressure 140 mm[Hg] 140 mm[Hg] [facility] Diastolic blood pressure 70 mm[Hg] 70 mm[Hg] [facility] Heart rate 77 /min 77 /min [facility] Body height 172.7 cm 172.7 cm [facility] Body weight 93.441 kg 93.441 kg [facility] Body mass index (BMI) [Ratio] 31.32 kg/m2 31.32 kg/m2 [facility] Oxygen saturation in Arterial blood by Pulse oximetry 93 % 93 % [facility] Systolic blood pressure 130 mm[Hg] 130 mm[Hg] M [facility] ([facility], ) Diastolic blood pressure 78 mm[Hg] 78 mm[Hg] [facility] ([facility], ) [place] body weight 135 [lb_av] 135 [lb_av] MEDEN T ([facility], ) Heart rate 80 /min 80 /min [facility] ([facility], ) Oxygen saturation in Arterial blood by Pulse oximetry 91 % 91 % [facility] ([facility], ) Body mass index (BMI) [Ratio] 31.5 kg/m2 31.5 k g/m2 [facility] ([facility], ) Body height 67.5 [in_i] 67.5 [in_i] [facility] ([facility], ) 5'7.50" Body weight 92.534 kg 92.534 kg [facility] ([facility]) Body weight 204.00 [lb_av] 204.00 [lb_av] [facility] T ([facility]) Body surface area Derived from formula 2.05 m2 2.05 m2 [facility] ([facility]) Oxygen saturation in Arterial blood by Pulse oximetry 91 % 91 % [facility] ([facility]) Body height 67.5 [in_i] 67.5 [in_i] [facility] ([facility]) .50" Body weight 204.00 [lb_av] 204.00 [lb_av] [facility] ([facility]) Body mass index (BMI) [Ratio] 31.5 kg/m2 31.5 k g/m2 [facility] ([facility]) [place] body weight 135 [lb_av] 135 [lb_av] [facility] ([facility]) Body weight 92.534 kg 92.534 kg [facility] ([facility]) Body surface area Derived from formula 2.05 m2 2.05 m2 [facility] ([facility]) Body weight 202.12 [lb_av] 202.12 [lb_av] W1 ([facility]) Body height [in_i] eCW1 (Counts include 234 beds at the [facility]) Body mass index (BMI) [Ratio] 30.28 kg/m2 30.28 kg/m2 eCW1 ([facility]) Heart rate 72 /min 72 /min eCW1 ([facility]) Respiratory rate 18 /min 18 /min eCW1 ([facility]) Body temperature 97.4 [degF] 97.4 [degF] eCW1 ( [facility]) Systolic blood pressure 125 mm[Hg] 125 mm[Hg] e CW1 ([facility]) Diastolic blood pressure 74 mm[Hg] 74 mm[Hg] eCW1 ([facility]) Body height 67.5 [in_i] 67.5 [in_i] [facility] ([facility]) 5'7.50" Body weight 198.00 [lb_av] 198.00 [lb_av] MED[facility] T ([facility]) Body mass index (BMI) [Ratio] 30.6 kg/m2 30.6 k g/m2 [facility] ([facility]) [place] body weight 135 [lb_av] 135 [lb_av] [facility] T ([facility]) Body weight 89.813 kg 89.813 kg [facility] ([facility]) Body surface area Derived from formula 2.02 m2 2.02 m2 [facility] ([facility]) Oxygen saturation in Arterial blood by Pulse oximetry 91 % 91 % [facility] ([facility]) Body weight 198.00 [lb_av] 198.00 [lb_av] [facility] T ([facility]) Body mass index (BMI) [Ratio] 30.6 kg/m2 30.6 k g/m2 [facility] ([facility]) [place] body weight 135 [lb_av] 135 [lb_av] [facility] ([facility]) Body weight 89.813 kg 89.813 kg [facility] ([facility]) Body surface area Derived from formula 2.02 m2 2.02 m2 [facility] ([facility]) Systolic blood pressure 130 mm[Hg] 130 mm[Hg] [facility] ([facility]) Diastolic blood pressure 80 mm[Hg] 80 mm[Hg] [facility] ([facility]) Heart rate 71 /min 71 /min [facility] ([facility]) Oxygen saturation in Arterial blood by Pulse oximetry 91 % 91 % [facility] ([facility]) Body height 67.5 [in_i] 67.5 [in_i] [facility] ([facility]) 5'7.50" Systolic blood pressure 110 mm[Hg] 110 mm[Hg] [facility] Diastolic blood pressure 70 mm[Hg] 70 mm[Hg] [facility] ([facility]) Body weight 211.00 [lb_av] 211.00 [lb_av] MED[facility] T ([facility]) Heart rate 70 /min 70 /min [facility] ([facility]) Body mass index (BMI) [Ratio] 32.6 kg/m2 32.6 k g/m2 [facility] [place] body weight 135 [lb_av] 135 [lb_av] MED[facility] T ([facility]) Body weight 95.710 kg 95.710 kg [facility] ([facility]) Body surface area Derived from formula 2.08 m2 2.08 m2 [facility] ([facility]) Oxygen saturation in Arterial blood by Pulse oximetry 93 % 93 % [facility] ([facility]) Room Air Body height 67.5 [in_i] 67.5 [in_i] [facility] ([facility]) 5'7.50" Respiratory rate 20 /min 20 /min eCW1 ([facility]) Body weight 207.8 [lb_av] 207.8 [lb_av] eCW1 ([facility]) Body temperature 97.7 [degF] 97.7 [degF] eCW1 ( [facility]) Body height [in_i] eCW1 (Counts include 234 beds at the [facility]) Systolic blood pressure 145 mm[Hg] 145 mm[Hg] e CW1 ([facility]) Diastolic blood pressure 79 mm[Hg] 79 mm[Hg] eCW1 ([facility]) Body mass index (BMI) [Ratio] 31.13 kg/m2 31.13 kg/m2 W1 ([facility]) Heart rate 81 /min 81 /min eCW1 ([facility]) Oxygen saturation in Arterial blood by Pulse oximetry 90 % 90 % [facility] Room Air Body weight 210.00 [lb_av] 210.00 [lb_av] MEDEN T ([facility]) Body mass index (BMI) [Ratio] 32.4 kg/m2 32.4 k g/m2 [facility]) [place] body weight 135 [lb_av] 135 [lb_av] MED[facility] T ([facility]) Body weight 95.256 kg 95.256 kg [facility] ([facility]) Body surface area Derived from formula 2.08 m2 2.08 m2 [facility] ([facility]) Body height 67.5 [in_i] 67.5 [in_i] [facility] ([facility]) 5'7.50" Heart rate 72 /min 72 /min [facility] ([facility]) Systolic blood pressure 130 mm[Hg] 130 mm[Hg] M [facility] ([facility]) Diastolic blood pressure 70 mm[Hg] 70 mm[Hg] [facility] ([facility]) Body weight 209 [lb_av] 209 [lb_av] eCW1 ([facility]) Heart rate 82 /min 82 /min eCW1 ([facility]) Respiratory rate 16 /min 16 /min eCW1 ([facility]) Body height [in_i] eCW1 (Counts include 234 beds at the [facility]) Body mass index (BMI) [Ratio] 31.31 kg/m2 31.31 kg/m2 eCW1 ([facility]) Body temperature 97.5 [degF] 97.5 [degF] eCW1 ( [facility]) Systolic blood pressure 118 mm[Hg] 118 mm[Hg] e CW1 ([facility]) Diastolic blood pressure 76 mm[Hg] 76 mm[Hg] eCW1 ([facility]) ID Date Data Source [id number] 12/26/2020 11:45:15 AM EDT [facility] Name Value Range Interpretation Code Description Data Source(s) WEIGHT RECORDED 200 lb 200 lb [facility] Body height Measured 68 in 68 in [facility] Patient Treatment Plan of Care Planned Activity Planned Date Details Description Data Source (s) Furosemide 20 MG Oral Tablet 03/20/2021 12:00:00 AM EDT [facility] Acetaminophen 325 MG / Hydrocodone Bitartrate 5 MG Ora l Tablet [[place]] 05/28/2020 12:00:00 AM EDT eCW1 (Counts include 234 beds at the [facility]) Acetaminophen 325 MG / Hydrocodone Bitartrate 5 MG Ora l Tablet [[place]] 05/28/2020 12:00:00 AM EDT eCW1 (Counts include 234 beds at the [facility]) Acetaminophen 325 MG / Hydrocodone Bitartrate 5 MG Ora l Tablet [[place]] 05/28/2020 12:00:00 AM EDT eCW1 (Counts include 234 beds at the [facility]) Acetaminophen 325 MG / Hydrocodone Bitartrate 5 MG Ora l Tablet [[place]] 05/28/2020 12:00:00 AM EDT eCW1 (Counts include 234 beds at the [facility]) ropinirole 1 MG Oral Tablet [facility]
[2021-07-03] MEDS ORDERED: FURO20TA2 (18:28)
--- NOTE | 2021-07-03 18:58 | REP ---
INDICATION: CHEST PAIN COMPARISON: 01/19/2018 TECHNIQUE: Portable AP view of the chest FINDINGS: Mediastinum and cardiac silhouette are stable. Lung lee demonstrate diffuse chronic interstitial changes. No focal consolidation. No effusion. No pneumothorax. Skeletal structures intact. IMPRESSION: Chronic appearing changes. No focal consolidation or effusion. <Electronically signed by Raymond Weiner > 07/03/21 [id number]
[2021-07-03 19:08] LABS: BASO # 0.1 10^3/uL (0.0-0.2); BASO % 0.7 % (0.0-1.0); EOS # 0.2 10^3/uL (0.0-0.5); EOS % 1.2 % (0.0-3.0); HEMATOCRIT 53.4 % (36.0-47.0); HEMOGLOBIN 17.7 g/dl (12.0-15.5); LYMPH # 1.3 10^3/uL (1.5-5.0); LYMPH % 10.2 % (24.0-44.0); MEAN CORPUSCULAR HEMOGLOBIN 31.6 pg (27.0-33.0); MEAN CORPUSCULAR HGB CONC 33.1 g/dl (32.0-36.5); MEAN CORPUSCULAR VOLUME 95.4 fl (80.0-96.0); MONO # 1.2 10^3/uL (0.0-0.8); MONO % 9.4 % (2.0-8.0); NEUTROPHILS # 10.2 10^3/uL (1.5-8.5); NEUTROPHILS % 78.1 % (36.0-66.0); PLATELET COUNT, AUTOMATED 257 10^3/uL (150-450); WHITE BLOOD COUNT 13.1 10^3/uL (4.0-10.0)
[2021-07-03 19:21] LABS: INR 0.89; PROTHROMBIN TIME 12.4 SECONDS (12.7-14.5)
[2021-07-03 19:35] LABS: ALBUMIN 3.5 GM/DL (3.2-5.2); ALT/SGPT 30 U/L (12-78); BILIRUBIN,DIRECT 0.2 MG/DL (0.0-0.2); BILIRUBIN,TOTAL 0.5 MG/DL (0.2-1.0); BLOOD UREA NITROGEN 21 MG/DL (7-18); CALCIUM LEVEL 9.4 MG/DL (8.8-10.2); CARBON DIOXIDE LEVEL 33 MEQ/L (21-32); CHLORIDE LEVEL 103 MEQ/L (98-107); CK-MB VALUE MASS 1.5 NG/ML (<3.6); CREATININE FOR GFR 0.94 MG/DL (0.55-1.30); GLOMERULAR FILTRATION RATE > 60.0 (>39); GLUCOSE, FASTING 86 MG/DL (70-100); LIPASE 63 U/L (73-393); MB/CK RELATIVE INDEX 2.88 (< OR =4); POTASSIUM SERUM 4.4 MEQ/L (3.5-5.1); SODIUM LEVEL 141 MEQ/L (136-145); TOTAL PROTEIN 6.8 GM/DL (6.4-8.2)
[2021-07-03] MEDS ORDERED: IPRATROPIUM 0.5MG/ALBUTEROL 2.5MG INH SOL UD 3ML (DUONEB) NEB ONE (19:45)
[2021-07-03] MEDS ORDERED: methylPREDNISolone 125MG 2ML VIAL IV ONE (19:45)
[2021-07-03] MEDS ORDERED: MORPHINE 2 MG/ML 1ML VIAL (J2270) IV PRN (20:45)
[2021-07-03] MEDS ORDERED: ONDANSETRON 4MG/2ML VIAL IV ONE (20:45)
[2021-07-03 20:49] LABS: CK-MB VALUE MASS 1.2 NG/ML (<3.6); MB/CK RELATIVE INDEX 2.45 (< OR =4)
--- OUTSIDE RECORDS SUMMARY | 2021-07-03 21:45 | CCD ---
Author Author [facility] Organization [facility] Address Unknown Phone Unavailable Care Team Providers Care Intranet Specialist Name Role Phone Dai Martinez Unavailable Unavailable [...] Unavailable Waylon Barrios MD Unavailable Unavailable Waylon Barriso MD Unavailable Unavailable Waylon Barrios MD Unavailable [...] is protected by Article 27-F of the [facility] Public Health law. If you continue you may have access to information: Regarding HIV / AIDS; Provided by facilities licensed or operated by the [facility] Office of Mental Health; or Provided by the [facility] Office for People With Developmental Disabilities. If such information is present, then the following [facility] mandated warning applies: This information has [...] law may result in a fine or group home sentence or both. A general authorization for the release of medical or other information is NOT sufficient authorization for further disc losure. Allergies and Adverse Reactions Type Description Substance Reaction Status Data Source(s ) Propensity to adverse reactions NO KNOWN ALLERGIES NO KNOWN [facility] Family History Family Member Name Family Member Gender Family Member Status Date o f Status Description Data Source(s) Unknown Male Problem MEDENT ([facility] () Unknown Male Problem MEDENT ([facility]) Unknown Female Problem MEDENT ([facility] ) Encounters Encounter Providers Location Date Indications Data Source(s ) Outpatient Referrer: Prerna PANDYA.VALERY-SJP.VALERY 12:00:00 AM [facility] Outpatient Referrer: Prerna DE LA TORREVALERY-SJP.VALERY 12:00:00 AM EDT [facility] Outpatient Attender: Prerna DE LA TORREVALERY-SJP.VALERY 12:00:00 AM EDT - 05/01/2021 03:25:36 PM EDT [facility] Unknown [address] [place] [address] 03/31/2021 12:00:00 AM EDT eCW1 ([facility]) Outpatient Attender: Luciana Martinez MD [facility] 03/25/2021 11:00:00 AM EDT MEDENT ([facility]) Outpatient Attender: Prerna DE LA TORREVALERY-SJPYolandaVALERY 06/2021 08:24:08 AM EDT - 03/20/2021 09:38:33 AM EDT [facility] Outpatient Attender: Suleman Garcia/Bean/Best/R eindl 01/22/2021 01:30:00 PM EDT MEDENT ([facility]) [place]patient [address] [place] [address] 01/21/2021 12:00:00 AM EDT eCW1 ([facility]) Outpatient Referrer: DAVE SAXENA DO 12/21/2020 12 :00:00 AM EDT Encounter for screening mammogram for malignant neoplasm of breast [facility] Encounter for screening mammogram for ma lignant neoplasm of breast Outpatient Referrer: DAVE SAXENA DO 12/21/2020 12:00:00 AM EDT [facility] Unknown [address] [facility] [place] [address] 12/10/2020 12:00:00 AM EDT eCW1 ([facility]) Outpatient Attender: Suleman Garcia/Bean/Best/R eindl 12/04/2020 03:30:00 PM EDT MEDENT ([facility]) [place] [address] [place] [address] 10/12/2020 12:00:00 AM EST eCW1 ([facility]) Outpatient Attender: Luciana Martinez MD Main office [facility] 10/10/2020 10:15:00 AM EST MEDENT ([facility], ) Outpatient Attender: Suleman Garcia/Bean/Best/R eindl 09/11/2020 02:00:00 PM EST MEDENT ([facility], ) [place] [address] [place] [address] 07/26/2020 12:00:00 AM EST [facility]CW1 [facility] [place]patient [address] [place] [address] 06/25/2020 12:00:00 AM EST eCW1 ([facility]) Unknown [address] [facility] [place] [address] 06/20/2020 12:00:00 AM EST [facility]CW1 ([facility]) Outpatient Attender: Suleman Garcia/Bean/Best/R eindl 06/07/2020 03:15:00 PM EDT MEDENT ([facility], ) [place] [address] [place] [address] 05/28/2020 12:00:00 AM EDT eCW1 ([facility]) [place] [address] [place] [address] 05/28/2020 12:00:00 AM EDT eCW1 ([facility]) Outpatient Referrer: Yessi ARECHIGA-SJP.VALERY 04/11 12:00:00 AM EDT - 05/02/2020 11:38:07 AM EDT [facility] Outpatient Attender: Yessi ARECHIGA-SJAdamVALERY 08/2019 12:00:00 AM EDT - 04/10/2020 02:13:38 PM EDT [facility] Immunizations Vaccine Date Status Description Data Source(s) COVID-19 dose #2 given elsewhere Unspecified 09/30/2020 11:3 0:00 AM EST completed eCW1 ([facility]) COVID-19 dose #2 given elsewhere Unspecified 09/30/2020 11:3 0:00 AM EST completed eCW1 ([facility]) COVID-19 VACCINE Pfizer 09/30/2020 12:00:00 AM EST completed NYSIIS Vaccine Series Complete: YESThis Data wa s Submitted to [facility] Via [place]. COVID-19 dose #1 given elsewhere Unspecified 09/09/2020 11:2 9:00 AM EST completed eCW1 ([facility]) COVID-19 dose #1 given elsewhere Unspecified 09/09/2020 11:2 9:00 AM EST completed eCW1 ([facility]) COVID-19 VACCINE Pfizer 09/09/2020 12:00:00 AM EST completed [place]SIIS Vaccine Series Complete: NOThis Data was Submitted to [facility] Via [place]. influenza, recombinant, quadrIvalent,injectable, prese rvative free 06/25/2020 04:25:00 PM EST completed eCW1 ([facility]) influenza, recombinant, quadrIvalent,injectable, prese rvative free 06/25/2020 04:25:00 PM EST completed eCW1 ([facility]) influenza, recombinant, quadrIvalent,injectable, prese rvative free 06/25/2020 04:25:00 PM EST completed eCW1 ([facility]) influenza, recombinant, quadrIvalent,injectable, prese rvative free 06/25/2020 04:25:00 PM EST completed eCW1 ([facility]) influenza, recombinant, quadrIvalent,injectable, prese rvative free 06/25/2020 04:25:00 PM EST completed eCW1 ([facility]) influenza, recombinant, quadrIvalent,injectable, prese rvative free 06/25/2020 04:25:00 PM EST completed eCW1 ([facility]) Medications Medication Brand Name Start Date Product [...] 06/12/2021 12:00:00 AM EDT ORAL active MEDENT ([facility]) 10 mg 06/12/2021 12:00:00 AM [...] (20 mg total) by mouth zheng robb [facility] Shortness of breath 20 mg 03/20/2021 12:00:00 [...] 12:00:00 AM EST RESPIRATORY active MEDENT ( [facility], ) 200 ACTUAT Albuterol 0.09 MG/ACTUAT Metered Dose Inhaler [Pr oAir] Proair HFA 10/12/2020 12:00:00 AM EST RESPIRATORY active MEDENT ([facility], ) 90 mcg/actuation 10/12/2020 12:00:00 AM EST [...] BY MOUTH TWICE A DAY SOLD: 06/21/2021 [facility] Albuterol 0.833 MG/ML / Ipratropium [place] 0.167 MG/M L Inhalant Solution Ipratropium [place]/Albuterol Sulfate 09/11/2020 12:00:00 AM EST active MEDENT ([facility], ) 0.5 mg-3 mg(2.5 mg base)/3 [...] 07/02/2020 12:00:00 AM EST RESPIRATORY completed MEDENT ([facility], ) 20 mg 06/21/2020 12:00:00 AM EST [...] 06/07/2020 12:00:00 AM EDT RESPIRATORY active MEDENT ([facility], ) Acetaminophen 325 MG / Hydrocodone Chencho trate 5 MG Oral Tablet [[place]] [place] 5- 325 MG [place] 5-325 MG 05/28/2020 12:00:00 AM EDT 1.0 {tablet_as_needed} active [place] 5-325 MG eCW1 ([facility]) Acetaminophen 325 MG / Hydrocodone Chencho trate 5 MG Oral Tablet [[place]] [place] 5- 325 MG [place] 5-325 MG 05/28/2020 12:00:00 AM EDT 1.0 {tablet_as_needed} active [place] 5-325 MG eCW1 ([facility]) Acetaminophen 325 MG / Hydrocodone Chencho trate 5 MG Oral Tablet [[place]] [place] 5- 325 MG [place] 5-325 MG 05/28/2020 12:00:00 AM EDT 1.0 {tablet_as_needed} active [place] 5-325 MG eCW1 ([facility]) Acetaminophen 325 MG / Hydrocodone Chencho trate 5 MG Oral Tablet [[place]] [place] 5- 325 MG [place] 5-325 MG 05/28/2020 12:00:00 AM EDT 1.0 {tablet_as_needed} active [place] 5-325 MG eCW1 ([facility]) 5-325 mg 05/28/2020 12:00:00 AM EDT tablet [...] 02/06/2020 12:00:00 AM EDT RESPIRATORY completed MEDENT ([facility], ) 2.5 mcg/actuation 02/05/2020 12:00:00 AM EDT [...] by mouth 3 (three) times a day [facility] Insurance Providers Payer name Policy type / Coverage type Policy ID Covered alliance party ID Covered alliance party's relationship to hitchcock Policy Hitchcock Plan Information POMCO [id number] SPO [id number] POMCO U [id number] Spouse [id number] POMCO [id number] HU2 [id number] POMCO [id number] Spo [id number] POMCO U [id number] Self [id number] MEDICARE A [id number] Self [id number] D Medicare [place] Medicare Primary [id number] Self [id number] MEDICARE [id number] Savita [id number] [id number] [place] [id number] S [id number] Medicare [place] Medicare Primary [id number] Self 0 [id number] [place] [id number] S [id number] MEDICARE [id number] SP [id number] D [place] Primary [id number] Self [id number] MEDICARE [id number] MEDICARE A [id number] Self [id number] P38 [place] MED[place]ARE [place] [id number] S [id number] MEDICARE [id number] Savita [id number] D [place] Primary [id number] Self [place] (pr) [facility] Part B [id number] Family Dependent UMR U [id number] Self [id number] UMR U [id number] Self [id number] Umr Commercial [id number] Family Dependent [id number] UMR U [id number] Spouse [id number] UMR [id number] Savita [id number] UMR [id number] ANSI-Medicare Part B [id number] MEDICARE [id number] D POMCO [id number] SPO [id number] UMR [id number] SPO [id number] ANSI-Commercial [id number] ANSI-Medicare Part B [id number] ANSI-Commercial [id number] ANSI-Commercial [id number] ANSI-Commercial [id number] ANSI-Medicare Part B [id number] ANSI-Medicare Part B [id number] ANSI-Commercial [id number] ANSI-Commercial [id number] ANSI-Commercial [id number] ANSI-Commercial [id number] ANSI-Medicare Part B [id number] POMCO [id number] SP [id number] [place] Medigap Part B [id number] Family Dependent [id number] [place] MED[employer]ARE [employer]ISION [id number] S [id number] [place] [id number] S [id number] Pom[place] Pos Commercial [id number] Family Dependent [id number] [place] Medigap Part B [id number] Self [id number] Medicare [place] Medicare Primary [id number] Self [id number] [facility], [facility] C [id number] S [id number] POMCO PPO O [id number] S [id number] MEDICARE C [id number] S [id number] D [place]IC[place] [facility] [id number] S [id number] [facility] [id number] SP [id number] MEDICARE [id number] SP [id number] [id number] [employer] [place] Other 0 [id number] Self 0 Medicare Part B [facility] Other 0 [id number] Self 0 UMR [facility] [id number] SP [id number] UMR O [id number] P [id number] MEDICARE C [id number] S [id number] [id number] UMR O [id number] P [id number] UMR O [id number] P [id number] [employer] [place] Other 0 [id number] Self 0 Medicare Part B [facility] Other 0 [id number] Self 0 UMR O [id number] P [id number] [employer] [place] Other 0 [id number] Self 0 Medicare Part B [facility] Other 0 [id number] Self 0 UMR [facility] CARE [id number] WI2 [id number] ANSI-Commercial [id number] ANSI-Medicare Part B [id number] ANSI-Commercial [id number] ANSI-Commercial [id number] ANSI-Commercial [id number] ANSI-Medicare Part B [id number] UMR [id number] [facility] [id number] [place] MEDICARE [employer]ISION [id number] ANSI-Commercial [id number] ANSI-Commercial [id number] Problems, Conditions, and Diagnoses Code Display Name Description Problem Type Effective Dates Data Source(s) Z99.89 Dependence on other enabling machines an d devices Dependence on other enabling machines an Diagnosis 05/01/2021 01:54:27 PM EDT [facility] G47.33 Obstructive sleep apnea (adult) (pediatr ic) Obstructive sleep apnea (adult) (pediatr Diagnosis 05/01/2021 01:54:27 PM EDT [facility] R03.0 Elevated blood-pressure reading, without diagnosis of hypertension Elevated blood-pressure reading, without Diagnosis 05/01/2021 01:54:27 PM EDT [facility] R07.9 Chest pain, unspecified Chest pain, unspecified Diagno sis 05/01/2021 01:54:27 PM EDT [facility] F17.200 Nicotine dependence, unspecified, uncomp licated Nicotine dependence, unspecified, uncomp Diagnosis 05/01/2021 01:54:27 PM EDT [facility] R55 Syncope and collapse Syncope and collapse Diagnosis 05/01/2021 01:54:27 PM EDT [facility] Z13.220 Encounter for screening for lipoid disor ders Encounter for screening for lipoid disor Diagnosis 05/01/2021 01:54:27 PM EDT [facility] R06.02 Shortness of breath Shortness of breath Diagnosis 0 03/20/2021 08:24:08 AM EDT [facility] Z12.31 Encounter for screening mammogram for ma lignant neoplasm of breast Encounter for screening mammogram for malignant neoplasm of breast Diagnosis 12/21/2020 11:30:00 AM EDT [facility] Z13.220 Screening for lipid disorders Screening for lipid diso rders [id number] 05/01/2021 12:00:00 AM EDT [facility] G47.33 HUBERT on CPAP HUBERT on CPAP [id number] 05/01/2021 12:00:00 AM EDT [facility] R55 Syncope Syncope [id number] 03/20/2021 12:00:00 AM ED T [facility] R03.0 Elevated blood pressure read ing in office without diagnosis of hypertension Elevated blood pressure reading in offic e without diagnosis of hypertension [id number] 03/20/2021 12:00:00 AM EDT [facility] 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 Problem 01/21/2021 12:00 :00 AM EDT eCW1 ([facility]) F32.0 [id number] Current mild episode of major depressive disorder without prior episode Problem 07/26/2020 12:00:00 AM EST eCW1 ([facility]) D72.825 [id number] Bandemia Problem 05/28/2020 12:00:00 AM ED T eCW1 ([facility]) Surgeries/Procedures Procedure Description Date Indications Data Source(s) ECG ROUTINE ECG W/LEAST 12 LDS W/I&R <td>POCT AMB EKG</td><td>Routine</td><td>05/01/2021 3:23 PM EDT</td><td> Chest pain, unspecified type</td><td> </td> 05/01/2021 03:23:00 PM EDT Chest pain, unspecified type [facility] Chest pain, unspecified type Plethysmography Determination Lung Volumes & Per Airway Resi st 04/18/2021 12:00:00 AM EDT MEDENT ([facility]) DIFFUSING CAPACITY 04/18/2021 12:00:00 AM EDT MEDENT ([facility]) Bronchospasm Evaluation 04/18/2021 12:00:00 AM EDT MEDENT ([facility], ) HEPATIC FUNCTION PANEL <td>HEPATIC FUNCTION PANEL</td><td>Routine</td><td>04/10/2021</td><td></td><td> </td> 04/10/2021 12:00:00 AM EDT [facility] BASIC METABOLIC PANEL CALCIUM TOTAL <td>BASIC METABOLI C PANEL</td><td>Routine</td><td>04/10/2021</td><td></td><td> </td> 04/10/2021 12:00:00 AM EDT [facility] OFFICE OUTPATIENT VISIT 15 MINUTES 03/25/2021 12:00:00 AM EDT [facility], ) ECG ROUTINE ECG W/LEAST 12 LDS W/I&R <td>POCT AMB EKG</td><td>Routine</td><td>03/20/2021 9:10 AM EDT</td><td> Chest pain, unspecified type</td><td> </td> 03/20/2021 09:10:00 AM EDT Chest pain, unspecified type [facility] Chest pain, unspecified type OFFICE OUTPATIENT VISIT 25 MINUTES 01/22/2021 12:00:00 AM EDT [facility] ([facility] ) BLOOD COUNT COMPLETE AUTO&AUTO DIFRNTL WBC COUNT <td>C BC AND DIFFERENTIAL</td><td>Routine</td><td>01/21/2021</td><td></td><td> </td> 01/21/2021 12:00:00 AM EDT [facility] THYROID STIMULATING HORMONE TSH <td>TSH</td><td>Routine</td><td>01/21/2021</td><td></td><td> </td> 01/21/2021 12:00:00 AM EDT [facility] HEPATIC FUNCTION PANEL <td>HEPATIC FUNCTION PANEL</td><td>Routine</td><td>01/21/2021</td><td></td><td> </td> 01/21/2021 12:00:00 AM EDT [facility] BASIC METABOLIC PANEL CALCIUM TOTAL <td>BASIC METABOLI C PANEL</td><td>Routine</td><td>01/21/2021</td><td></td><td> </td> 01/21/2021 12:00:00 AM EDT [facility] Spirometry 12/04/2020 12:00:00 AM EDT M EDENT ([facility], ) OFFICE OUTPATIENT VISIT 25 MINUTES 12/04/2020 12:00:00 AM EDT MEDENT ([facility], ) OFFICE OUTPATIENT VISIT 25 MINUTES 10/10/2020 12:00:00 AM EST MEDENT ([facility], ) Spirometry 09/11/2020 12:00:00 AM EST M EDENT ([facility], ) Immunization: Flublok Quadrivalent (18 years & older) 0.5mL IM (Influenza) 06/25/2020 12:00:00 AM EST eCW1 ([facility]) Spirometry 06/07/2020 12:00:00 AM EDT M EDENT ([facility], ) Results ID Date Data Source [id number] 06/02/2021 11:15:25 PM EDT [facility] Name Value Range Interpretation Code Description Data Carmel rce(s) Supporting Document(s) &PDF [facility] LDUYXs1uHvEUVkQa42/ZBAuxXTJsq2HkLSgzDYl1CJdwNYNfX9YklZrpVZRHWX3VMleXAFJMQAXdDPIr vci [file] AgICAgICAgICAgICAgICAgICAgICAgICAgICAgICAg ICAgICAgICAgICAgICAgICAgICAgICAgICAgICAgICAgDQogICAgICAgICAgICAgICAgICAgICAgICAg ICAgICAgICAgICAgICAgICAgICAgICAgICAgICAgICAgICAgICAgICAgICAgICAgICAgICAgICAgICAg ICAgICAgICAgICAgICAgDQogICAgICAgICAgICAgIC AgICAgICAgICAgICAgICAgICAgICAgICAgICAgICAgICAgICAgICAgICAgICAgICAgICAgICAgICAgIC AgICAgICAgICAgICAgICAgICAgICAgICAgDQogICAgICAgICAgICAgICAgICAgICAgICAgICAgICAgIC AgICAgICAgICAgICAgICAgICAgICAgICAgICAgICAg ICAgICAgICAgICAgICAgICAgICAgICAgICAgICAgICAgICAgDQogICAgICAgICAgICAgICAgICAgICAg ICAgICAgICAgICAgICAgICAgICAgICAgICAgICAgICAgICAgICAgICAgICAgICAgICAgICAgICAgICAg ICAgICAgICAgICAgICAgICAgDQogICAgICAgICAgIC AgICAgICAgICAgICAgICAgICAgICAgICAgICAgICAgICAgICAgICAgICAgICAgICAgICAgICAgICAgIC AgICAgICAgICAgICAgICAgICAgICAgICAgICAgDQogICAgICAgICAgICAgICAgICAgICAgICAgICAgIC AgICAgICAgICAgICAgICAgICAgICAgICAgICAgICAg ICAgICAgICAgICAgICAgICAgICAgICAgICAgICAgICAgICAgICAgDQogICAgICAgICAgICAgICAgICAg ICAgICAgICAgICAgICAgICAgICAgICAgICAgICAgICAgICAgICAgICAgICAgICAgICAgICAgICAgICAg ICAgICAgICAgICAgICAgICAgICAgDQogICAgICAgIC AgICAgICAgICAgICAgICAgICAgICAgICAgICAgICAgICAgICAgICAgICAgICAgICAgICAgICAgICAgIC AgICAgICAgICAgICAgICAgICAgICAgICAgICAgICAgDQogICAgICAgICAgICAgICAgICAgICAgICAgIC AgICAgICAgICAgICAgICAgICAgICAgICAgICAgICAg NEBwDWRqWCNdBCPvKWDmYRVeIQBaQNOjULOyMMCpXCMaGFKiHKTwFRQkCKv3G6ubAJWwMCRjBU4nDKq1 Jz8+KZlBLzHgQDB1vgCwlB8TTL3me7InKJxlVMCyt0PdCMn1QR9AZVGuDEhoQV3ETVacfc1VUNYbMNIm kCCOj6ggSmJoRFN9XMRrXcafBG8QITUzY6rpicPcKR UyBKJKQAguJACUKKzkQMUHIMXnLXLyEuTfSJybAH4Ie4RxbXL2ESd+Ee6CIB2gn0YzIUc9AuUkTU9kwh 5IHMaJMlFwB4W5uWMyG4N2UPwzRe5YSVIgMSKwTNQfDSEKKGffVC8ASO2dluF0MW4JwXOqJRHnVFWjsH PjDEm6T91lkAWjAQrrBA6NFXX+Neyda+Ud9HNYViXDDd VFEfOtIcTPVNFhIkY09ckJTlCRCuGIR7VZImNq0HPCYoJ3ZzphUfqPigpuGbBLSxVTKYHO0ELLbygqVs hUQbpSowVL37hJsrTV3LDv7LOrQrKD8hqv9JuJXlIr0KPWN3Wa4BGDNzOKNfTJThGFN4NURfQvEwPUws UBXvJYScURJ0IPLrCXVuRA6BNmLjXQTyVph7WTvhFI IjXTMmft6HYRVcEDZzZOS1GlByIYKdCJChSSsoKSToVGQzDFrtZEBtCRAzZY6YPcXiYUXoNDI5QmLnGC LhSDKvyc4OKVChWOSlKfr1NBJpNTTxELIlKQufMQTzWRA4FRo7KYRfMOGlSS1LBkAjGWYwHVh4TARtJN VkMYWyeu4MMKKjPDZyYTx9EfYjKPEvNDWrSRevACNu YCAlIWw5SFKgKZZwOU8CDpNoONRjRQGsXfFrMJMnKIFpwg4PIUBgVFDkUNB3UHSdGQHrPGGxHSrpUWSf ICT6BtGfCWXyTPBbMJ6TCbUfPCVjKJTtZNjjKLWtYRTapp2LVRMoKBHsThJ5FIWcJBXkIMEjKLypALTc YYP5PCC5OAWdTYXpSM8JUrQmKXYtIUn2SIXvCPQmLR Nuky7QWKCxYLBiYwxqAGRsETJdKIUwUBqsMEIlNMOiCku7YNTkOYJuYE2HYaFrMBIxAwHbDTCmHDQlOS Apny2MJNJvXSLiKfWsQJCnWUOcFMLdNPpbKVFbOTUaRAS4FOWsJQYpBY9BHgNqRGKuXhZ8MLMyRZRwUJ Mbrl4BENMrGOYaPUU3TqTmTSKxDGOfRScmUWMoPWW5 LZX3JTTcYNGoHH8GQaWrWDMrRbMxVRWuKUOmQEKpcv8LYNYmLUWdFHc1KaYsZCYjMSApAUzmVGUnIUV2 NEA9BYBaWNZyTX2CXfNgWEDaYnBxVDZgFJBtXBAhob8ZIERoNDClPiX4FnOyPELtMKSbQQvkUUXvCWF3 XOT8FKSfOWQpXC5TZzHsSJDjOwx9HGdvACIrXVLthl 4LSTRlOSKcQvchGaAsTSYkTBKhSCkwZAEzZPH4OjG2KMZdWYXtXK2VYpYnVTFfPog5RSDzCESoBJArqg 3QWQAzCLBxXUs5DWEzBRLtVSCaAVmvFBMyQFU5AEd0QRMsIYIuIB8WMtFiZFPsVtenSLjwULQoWAEqtj 3RFRDaWTErVFXmFdKfNMAyFUHrMYpoERVdEFW8KQP2 PNGkODCaCP9BLhRyARTcKoX6CZXkWSBfGUZfev5BIMMxFZXxEky9QSQvROJnWBPuEKrmWKCfZBT6WgW6 UVLtJLSmWC5JCcPgAZYsVzn2BrMzRADpSVPgxc6CQUCoHVNfUFNcJdCyIXNrTAUgZBtgSSHrUPD0YMup DMLtRSBkXE7NOhSdLGnbLBUZQtr7LRksY3v0JOJ5Ch 1AW6Eip0UmOCZyIWQACEjhRU5vpeCxGDHsEy3HH0cLVuojCILeRLQ9LLqfZGvhLDT7CXYlYcR3WwU1Ac BfUfNgDj8iVLViVpB3NJXfZWCiUNSqSDD3IEWuOOqdSDjiORR0SOV2HnFyIE6HAm0HUaL5YPH3zJUzVz 4TMgt6OUQPHvNlGX5WURs= ID Date Data Source VITAMIN B12 LEVEL 01/21/2021 12:00:00 AM EDT eCW1 ([facility]) Name Value Range Interpretation Code Description Data Carmel rce(s) Supporting Document(s) [phone] VITAMIN B12 LEVEL eCW1 ([facility]) ID Date Data Source TSH 01/21/2021 12:00:00 AM EDT eCW1 ([facility]) Name Value Range Interpretation Code Description Data Carmel rce(s) Supporting Document(s) 4.330 0.358-3.740 THYROID STIMULATING HORM ONE eCW1 ([facility]) ID Date Data Source Comprehensive Metabolic Profile (CMP) 01/21/2021 12:00:00 AM EDT eCW1 ([facility]) Name Value Range Interpretation Code Description Data Carmel rce(s) Supporting Document(s) 81 70-100 GLUCOSE, FASTING eCW1 ([facility]) 18 7-18 BLOOD UREA NITROGEN eCW1 ([facility]) 0.73 0.55-1.30 CREATININE FOR GFR eCW1 ([facility]) 4.8 3.5-5.1 POTASSIUM SERUM eCW1 ([facility]) 142 136-145 SODIUM LEVEL eCW1 ([facility]) > 60.0 >39 GLOMERULAR FILTRATION RATE eCW 1 ([facility]) 34 21-32 CARBON DIOXIDE LEVEL eCW1 ([facility]) 8.8 8.8-10.2 CALCIUM LEVEL eCW1 ([facility]) 106 98-107 CHLORIDE LEVEL eCW1 ([facility]) 94 45-117 ALKALINE PHOSPHATASE eCW1 ([facility]) 12 7-37 AST/SGOT eCW1 ([facility]) 0.5 0.2-1.0 BILIRUBIN,TOTAL eCW1 ([facility]) 24 12-78 ALT/SGPT eCW1 ([facility]) 3.5 3.2-5.2 ALBUMIN eCW1 ([facility]) 1.2 1.2-2.2 ALBUMIN/GLOBULIN RATIO eCW1 (Formerly [facility], 1928–1983) 6.4 6.4-8.2 TOTAL PROTEIN eCW1 ([facility]) ID Date Data Source CBC with Differential 01/21/2021 12:00:00 AM EDT eCW1 ([facility]) Name Value Range Interpretation Code Description Data Carmel rce(s) Supporting Document(s) 6.7 4.0-10.0 WHITE BLOOD COUNT eCW1 ([facility]) 98.5 80.0-96.0 MEAN CORPUSCULAR VOLUME e CW1 ([facility]) 51.2 36.0-47.0 HEMATOCRIT eCW1 ([facility] hospital) 5.20 4.00-5.40 RED BLOOD COUNT eCW1 (Critical access hospital) 16.5 12.0-15.5 HEMOGLOBIN eCW1 (Critical access hospital) 31.7 27.0-33.0 MEAN CORPUSCULAR HEMOGLOB IN eCW1 ([facility]) 32.2 32.0-36.5 MEAN CORPUSCULAR HGB CONC eCW1 ([facility]) 12.7 11.5-14.5 RED CELL DISTRIBUTION WID TH eCW1 ([facility]) 69.6 36.0-66.0 NEUTROPHILS % eCW1 ([facility]) 16.6 24.0-44.0 LYMPH % eCW1 ([facility]) 10.1 2.0-8.0 MONO % eCW1 ([facility]) 278 150-450 PLATELET COUNT, AUTOMATED eCW1 ([facility]) 1.3 0.0-1.0 BASO % eCW1 ([facility]) 2.1 0.0-3.0 EOS % eCW1 ([facility]) 4.7 1.5-8.5 NEUTROPHILS # eCW1 ([facility]) 0.1 0.0-0.2 BASO # eCW1 ([facility]) 1.1 1.5-5.0 LYMPH # eCW1 ([facility]) 0.7 0.0-0.8 MONO # eCW1 ([facility]) 0.1 0.0-0.5 EOS # eCW1 ([facility]) ID Date Data Source [id number] 12/26/2020 11:45:15 AM [facility] MAMMO DIGITAL SCREENING BILATERAL [id number] INAL RESULTInterpreted by:Naye Diaz MDBILATERAL SCREENING DIGITAL MAMMOGRAM WITH COMPUTER-AIDED DETECTIONINDICATION: Screening mammogram.COMPARISON: None. Patient reports prior mammograms performed at an outside facility, however no prior mammograms could be retrieved at the time of this dictation.LAST CLINICAL BREAST EXAM: Probably 5-6 years ago as reported by the patient. Date not otherwise specified.National Cancer Delta Risk Assessment Es Model5-Year RiskPatient risk: 3.1%Average [...] rce(s) Supporting Document(s) ID Date Data Source [id number] 08/27/2020 12:00:00 AM EST [facility] Suleman Barrios MD Patient Name: NIK RIZZO20 [facility] Date of : 1950[place] Date of Exam: 08/27/2020[place] [id number]#: Fax: [phone] EXAM: CT THORAX WITHOUT CONTRASTCLINICAL [...] LUNG RADS Category 4X lesion.Accredited by the [employer] in [place].Maurice Hardy, JOHN PAULJLucho/slmThank you for referring ALEXEY RIZZO to our office. Electronically Signed - MAURICE HARDY DO 08/27/20 16:55 Name Value Range Interpretation Code Description Data Carmel rce(s) Supporting Document(s) ID Date Data Source [id number] 06/01/2020 12:00:00 AM EDT [facility] Suleman Barrios MD Patient Name: ALEXEY RIZZO [id number] [facility] Date of : 1950[place] Date of Exam: [facility]2020[facility] [id number] Fax: [phone] EXAM: CT THORAX WITHOUT CONTRASTCLINICAL [...] oftissue sampling at this time.Accredited by the [employer] in [place].EVETTE Dubois/Janell brunner for referring ALEXEY RIZZO to our office. Electronically Signed - MAURICE HARDY DO 06/01/20 16:58 Name Value Range Interpretation Code Description Data Carmel rce(s) Supporting Document(s) ID Date Data Source HEPATITIS PROFILE ACUTE 05/28/2020 02:29:29 AM EDT eCW1 ([facility]) Name Value Range Interpretation Code Description Data Carmel rce(s) Supporting Document(s) NEGATIVE HEPATITIS B CORE ANTIBODY IGM eCW1 ([facility]) 0.1 HEPATITIS C VIRUS [place] INDEX eC W1 ([facility]) NEGATIVE HEPATITIS A ANTIBODY IGM eCW1 ([facility]) NEGATIVE HEPATITIS B SURFACE ANTIG EN eCW1 ([facility]) Procedure Social History Code Duration Value Status Description Data Source(s ) Alcohol intake 05/01/2021 12:00:00 AM EDT Current drinker of al cohol (finding) completed Current drinker of alcohol (finding) [facility] Alcohol intake 03/20/2021 12:00:00 AM EDT Current drinker of al cohol (finding) completed Current drinker of alcohol (finding) [facility] Smoking 01/21/2021 12:00:00 AM EDT Current Smoker completed Curre nt Smoker eCW1 ([facility]) Smoking 01/21/2021 12:00:00 AM EDT Current Smoker completed Curre nt Smoker eCW1 ([facility]) Alcohol intake 12/21/2020 12:00:00 AM EDT Current drinker of al cohol (finding) completed Current drinker of alcohol (finding) [facility] Tobacco use and exposure 12/21/2020 12:00:00 AM EDT Never used co mpleted Never used [facility] Smoking 12/21/2020 12:00:00 AM EDT Current every day smoker co mpleted Current every day smoker [facility] Smoking 07/26/2020 12:00:00 AM EST Current Smoker completed Curre nt Smoker eCW1 ([facility]) Smoking 07/26/2020 12:00:00 AM EST Current Smoker completed Curre nt Smoker eCW1 ([facility]) Smoking 07/26/2020 12:00:00 AM EST Current Smoker completed Curre nt Smoker eCW1 ([facility]) Smoking 05/28/2020 12:00:00 AM EDT Current Smoker completed Curre nt Smoker eCW1 ([facility]) Smoking 05/28/2020 12:00:00 AM EDT Current Smoker completed Curre nt Smoker eCW1 ([facility]) Smoking 05/28/2020 12:00:00 AM EDT Current Smoker completed Curre nt Smoker eCW1 ([facility]) Smoking 05/28/2020 12:00:00 AM EDT Current Smoker completed Curre nt Smoker eCW1 ([facility]) Vital Signs ID Date Data Source UNK Name Value Range Interpretation Code Description Data Source(s) Systolic blood pressure 120 mm[Hg] 120 mm[Hg] [facility] ) Body height 67.5 [in_i] 67.5 [in_i] [facility] ([facility]) 5'7.50" Body weight 1994.00 [lb_av] 1994.00 [lb_av] MED ENT ([facility]) Body mass index (BMI) [Ratio] 307.7 kg/m2 307.7 kg/m2 [facility] ([facility]) Vera body weight 135 [lb_av] 135 [lb_av] MEDEN T ([facility]) Body weight 904.478 kg 904.478 kg [facility] ([facility]) Body surface area Derived from formula 5.40 m2 5.40 m2 [facility] ([facility]) Diastolic blood pressure 72 mm[Hg] 72 mm[Hg] [facility] ([facility]) Heart rate 89 /min 89 /min [facility] ([facility]) Oxygen saturation in Arterial blood by Pulse oximetry 93 % 93 % [facility] ([facility]) Respiratory rate 18 /min 18 /min [facility] ( [facility]) Systolic blood pressure 116 mm[Hg] 116 mm[Hg] [facility] Diastolic blood pressure 66 mm[Hg] 66 mm[Hg] [facility] Heart rate 87 /min 87 /min [facility] Respiratory rate 22 /min 22 /min [facility] Body height 172.7 cm 172.7 cm [facility] Body weight 90.266 kg 90.266 kg [facility] Body mass index (BMI) [Ratio] 30.26 kg/m2 30.26 kg/m2 [facility] Oxygen saturation in Arterial blood by Pulse oximetry 90 % 90 % [facility] Systolic blood pressure 140 mm[Hg] 140 mm[Hg] [facility] Diastolic blood pressure 70 mm[Hg] 70 mm[Hg] [facility] Heart rate 77 /min 77 /min [facility] Body height 172.7 cm 172.7 cm [facility] Body weight 93.441 kg 93.441 kg [facility] Body mass index (BMI) [Ratio] 31.32 kg/m2 31.32 kg/m2 [facility] Oxygen saturation in Arterial blood by Pulse oximetry 93 % 93 % [facility] Heart rate 80 /min 80 /min [facility] ([facility], ) Systolic blood pressure 130 mm[Hg] 130 mm[Hg] M EDENT ([facility], ) Diastolic blood pressure 78 mm[Hg] 78 mm[Hg] [facility] ([facility], ) Oxygen saturation in Arterial blood by Pulse oximetry 91 % 91 % [facility] ([facility], ) Body mass index (BMI) [Ratio] 31.5 kg/m2 31.5 k g/m2 [facility] ([facility], ) Vera body weight 135 [lb_av] 135 [lb_av] MEDEN T ([facility], ) Body weight 92.534 kg 92.534 kg [facility] ([facility], ) Body surface area Derived from formula 2.05 m2 2.05 m2 [facility] ([facility]) Body height 67.5 [in_i] 67.5 [in_i] [facility] ([facility]) 5'7.50" Body weight 204.00 [lb_av] 204.00 [lb_av] MEDEN T ([facility]) Oxygen saturation in Arterial blood by Pulse oximetry 91 % 91 % [facility] ([facility]) Body height 67.5 [in_i] 67.5 [in_i] [facility] ([facility]) 5'7.50" Body weight 204.00 [lb_av] 204.00 [lb_av] MEDEN T ([facility]) Body mass index (BMI) [Ratio] 31.5 kg/m2 31.5 k g/m2 [facility] ([facility]) Vera body weight 135 [lb_av] 135 [lb_av] MEDEN T ([facility]) Body weight 92.534 kg 92.534 kg [facility] ([facility]) Body surface area Derived from formula 2.05 m2 2.05 m2 [facility] ([facility]) Body weight 202.12 [lb_av] 202.12 [lb_av] eCW1 ([facility]) Body height [in_i] eCW1 ([facility]) Body mass index (BMI) [Ratio] 30.28 kg/m2 30.28 kg/m2 eCW1 ([facility]) Heart rate 72 /min 72 /min eCW1 ([facility] hospital) Respiratory rate 18 /min 18 /min eCW1 ([facility]) Body temperature 97.4 [degF] 97.4 [degF] eCW1 ( [facility]) Systolic blood pressure 125 mm[Hg] 125 mm[Hg] e CW1 ([facility]) Diastolic blood pressure 74 mm[Hg] 74 mm[Hg] eCW1 ([facility]) Body height 67.5 [in_i] 67.5 [in_i] [facility] ([facility]) 5'7.50" Systolic blood pressure 130 mm[Hg] 130 mm[Hg] M EDENT ([facility]) Oxygen saturation in Arterial blood by [facility]ulse oximetry 91 % 91 % [facility]) Body weight 198.00 [lb_av] 198.00 [lb_av] MEDEN T ([facility]) Body mass index (BMI) [Ratio] 30.6 kg/m2 30.6 k g/m2 [facility] ([facility]) Vera body weight 135 [lb_av] 135 [lb_av] MEDEN T ([facility]) Body weight 89.813 kg 89.813 kg [facility] ([facility]) Body surface area Derived from formula 2.02 m2 2.02 m2 [facility] ([facility]) Diastolic blood pressure 80 mm[Hg] 80 mm[Hg] [facility] ([facility]) Body weight 198.00 [lb_av] 198.00 [lb_av] MEDEN T ([facility]) Body mass index (BMI) [Ratio] 30.6 kg/m2 30.6 k g/m2 [facility] ([facility]) Vera body weight 135 [lb_av] 135 [lb_av] MEDEN T ([facility]) Body weight 89.813 kg 89.813 kg [facility] ([facility]) Body surface area Derived from formula 2.02 m2 2.02 m2 [facility] ([facility]) Heart rate 71 /min 71 /min [facility] ([facility]) Oxygen saturation in Arterial blood by Pulse oximetry 91 % 91 % [facility] ([facility]) Body height 67.5 [in_i] 67.5 [in_i] [facility] ([facility]) 5'7.50" Body weight 211.00 [lb_av] 211.00 [lb_av] MEDEN T ([facility]) Body mass index (BMI) [Ratio] 32.6 kg/m2 32.6 k g/m2 [facility] ([facility]) Vera body weight 135 [lb_av] 135 [lb_av] MEDEN T ([facility]) Body weight 95.710 kg 95.710 kg [facility] ([facility]) Body surface area Derived from formula 2.08 m2 2.08 m2 [facility] ([facility]) Systolic blood pressure 110 mm[Hg] 110 mm[Hg] M EDENT ([facility]) Diastolic blood pressure 70 mm[Hg] 70 mm[Hg] MEDENT ([facility]) Heart rate 70 /min 70 /min [facility] ([facility]) Oxygen saturation in Arterial blood by Pulse oximetry 93 % 93 % [facility] ([facility]) Room Air Body height 67.5 [in_i] 67.5 [in_i] [facility] ([facility]) 5'7.50" Respiratory rate 20 /min 20 /min eCW1 ([facility]) Body mass index (BMI) [Ratio] 31.13 kg/m2 31.13 kg/m2 eCW1 ([facility]) Heart rate 81 /min 81 /min eCW1 ([facility] hospital) Body weight 207.8 [lb_av] 207.8 [lb_av] eCW1 ([facility], 1928[facility]) Body height [in_i] eCW1 ([facility]) Systolic blood pressure 145 mm[Hg] 145 mm[Hg] e CW1 ([facility]) Diastolic blood pressure 79 mm[Hg] 79 mm[Hg] eCW1 ([facility]) Body temperature 97.7 [degF] 97.7 [degF] eCW1 ( [facility]) Oxygen saturation in Arterial blood by Pulse oximetry 90 % 90 % [facility] ([facility]) Room Air Body height 67.5 [in_i] 67.5 [in_i] [facility] ([facility]) 5'7.50" Body mass index (BMI) [Ratio] 32.4 kg/m2 32.4 k g/m2 [facility] ([facility]) Vera body weight 135 [lb_av] 135 [lb_av] MEDEN T ([facility] ) Body weight 210.00 [lb_av] 210.00 [lb_av] MEDEN T ([facility]) Body weight 95.256 kg 95.256 [facility] Body surface area Derived from formula 2.08 m2 2.08 m2 [facility] ([facility]) Heart rate 72 /min 72 /min [facility] ([facility]) Systolic blood pressure 130 mm[Hg] 130 mm[Hg] M EDENT ([facility]) Diastolic blood pressure 70 mm[Hg] 70 mm[Hg] MEDENT ([facility]) Body temperature 97.5 [degF] 97.5 [degF] eCW1 ( [facility]) Body weight 209 [lb_av] 209 [lb_av] eCW1 ([facility]) Body height [in_i] eCW1 ([facility]) Body mass index (BMI) [Ratio] 31.31 kg/m2 31.31 kg/m2 eCW1 ([facility]) Heart rate 82 /min 82 /min eCW1 ([facility]) Respiratory rate 16 /min 16 /min eCW1 ([facility]) Systolic blood pressure 118 mm[Hg] 118 mm[Hg] e CW1 ([facility]) Diastolic blood pressure 76 mm[Hg] 76 mm[Hg] eCW1 ([facility]) ID Date Data Source [id number] 12/26/2020 11:45:[address] [facility] Name Value Range Interpretation Code Description Data Source(s) WEIGHT RECORDED [address] [facility] Body height Measured 68 in 68 in [facility] Patient Treatment Plan of Care Planned Activity Planned Date Details Description Data Source (s) Furosemide 20 MG Oral Tablet 03/20/2021 12:00:00 AM EDT [facility] Acetaminophen 325 MG / Hydrocodone Bitartrate 5 MG Ora l Tablet [[place]] 05/28/2020 12:00:00 AM EDT eCW1 ([facility]) Acetaminophen 325 MG / Hydrocodone Bitartrate 5 MG Ora l Tablet [[place]] 05/28/2020 12:00:00 AM EDT eCW1 ([facility]) Acetaminophen 325 MG / Hydrocodone Bitartrate 5 MG Ora l Tablet [[place]] 05/28/2020 12:00:00 AM EDT eCW1 ([facility]) Acetaminophen 325 MG / Hydrocodone Bitartrate 5 MG Ora l Tablet [[place]] 05/28/2020 12:00:00 AM EDT eCW1 ([facility]) ropinirole 1 MG Oral Tablet [facility]
[2021-07-03 23:17] LABS: CK-MB VALUE MASS 1.2 NG/ML (<3.6); MB/CK RELATIVE INDEX 2.61 (< OR =4)
[2021-07-04] MEDS ORDERED: PRED20TA PO (00:09)
[2021-07-04 00:27] VITALS: BP 109/67
--- NOTE | 2021-07-04 06:39 | ECGEPIP ---
[facility] - ED Test Date: 2021-07-03 Pat Name: ALEXEY RIZZO Department: Room: - Gender: Female Cardiovascular Rn: kim : 1950 Requested By: Aaron To Order Number: [id number] Reading MD: Aaron Espinoza Measurements Intervals [place] Rate: 97 P: 76 CT: 150 QRS: -87 QRSD: 74 T: 60 QT: 346 QTc: 439 Interpretive Statements Normal sinus rhythm PRIOR INFERIOR INFARCT NO PRIORS FOR COMPARISON Electronically Signed on 07-04-2021 6:39:17 EST by Aaron Espinoza
== END 2021-07-04 00:40 | disposition home or self-care (01) ==
LOC: M ED 18:12
DX: J44.9 Chronic obstructive pulmonary disease, unspecified (principal); R07.1 Chest pain on breathing; I25.10 Atherosclerotic heart disease of native coronary artery without angina pectoris; I10 Essential (primary) hypertension; E78.5 Hyperlipidemia, unspecified; K21.9 Gastro-esophageal reflux disease without esophagitis; E03.9 Hypothyroidism, unspecified; F17.200 Nicotine dependence, unspecified, uncomplicated; Z82.49 Family history of ischemic heart disease and other diseases of the circulatory system; Z79.82 Long term (current) use of aspirin; Z79.899 Other long term (current) drug therapy
CPT/HCPCS: 71045; 80048; 80076; 82550; 82553; 83690; 84484; 85025; 85610; 87798; 93005; 93041; 94640; 94760; 96374; 96375; 99285; J2270; J2405; J2930

== ENCOUNTER → 2021-07-15 | Outpatient (REF) | payer MEDICARE, OTHER ==
[~2021-07-15] MED LIST changes: +FURO20TA2; +PRED20TA PO
== END ==
LOC: M SFHCCLAY 13:32
PROVIDERS: ATTEND Family Medicine
DX: E03.9 Hypothyroidism, unspecified (principal)
CPT/HCPCS: 84443; G0463

== ENCOUNTER → 2021-09-25 | Outpatient (CLI) | payer MEDICARE, OTHER ==
[~2021-09-25] MED LIST changes: -MONT10TA10 PO; +MONT10TA97 PO
[2021-09-25 14:34] LABS: ALBUMIN 3.2 GM/DL (3.2-5.2); ALT/SGPT 22 U/L (12-78); BILIRUBIN,TOTAL 0.3 MG/DL (0.2-1.0); BLOOD UREA NITROGEN 22 MG/DL (7-18); CALCIUM LEVEL 9.1 MG/DL (8.8-10.2); CARBON DIOXIDE LEVEL 31 MEQ/L (21-32); CHLORIDE LEVEL 107 MEQ/L (98-107); CREATININE FOR GFR 0.79 MG/DL (0.55-1.30); GLOMERULAR FILTRATION RATE > 60.0 (>39); GLUCOSE, FASTING 94 MG/DL (70-100); POTASSIUM SERUM 4.1 MEQ/L (3.5-5.1); SODIUM LEVEL 144 MEQ/L (136-145); TOTAL PROTEIN 6.6 GM/DL (6.4-8.2)
== END ==
LOC: M ONCR 13:19
PROVIDERS: ATTEND General Practice
DX: C34.11 Malignant neoplasm of upper lobe, right bronchus or lung (principal)

== ENCOUNTER → 2021-10-02 | Outpatient (CLI) | payer MEDICARE, OTHER ==
[~2021-10-02] MED LIST changes: +ISOVUE-370 76% 100ML VIAL As Ordered ONE
== END ==
LOC: M RAD 12:54
PROVIDERS: ATTEND General Practice
DX: C34.11 Malignant neoplasm of upper lobe, right bronchus or lung (principal)
CPT/HCPCS: 71260; Q9967

== ENCOUNTER → 2021-10-09 | Outpatient (CLI) | payer MEDICARE, OTHER ==
[~2021-10-09] MED LIST changes: -ISOVUE-370 76% 100ML VIAL As Ordered ONE
== END ==
LOC: M ONCR 11:18
PROVIDERS: ATTEND General Practice
DX: R91.1 Solitary pulmonary nodule (principal); R91.8 Other nonspecific abnormal finding of lung field; F17.210 Nicotine dependence, cigarettes, uncomplicated; R51.9 Headache, unspecified; Z79.82 Long term (current) use of aspirin; Z79.899 Other long term (current) drug therapy

== ENCOUNTER → 2022-01-17 | Outpatient (REF) | payer MEDICARE, OTHER ==
[2022-01-17 11:39] LABS: BASO # 0.1 10^3/uL (0.0-0.2); BASO % 1.1 % (0.0-1.0); EOS # 0.1 10^3/uL (0.0-0.5); EOS % 1.7 % (0.0-3.0); HEMATOCRIT 49.6 % (36.0-47.0); HEMOGLOBIN 16.1 g/dl (12.0-15.5); LYMPH % 12.7 % (24.0-44.0); MEAN CORPUSCULAR HEMOGLOBIN 30.8 pg (27.0-33.0); MEAN CORPUSCULAR HGB CONC 32.5 g/dl (32.0-36.5); MEAN CORPUSCULAR VOLUME 94.8 fl (80.0-96.0); MONO # 0.9 10^3/uL (0.0-0.8); MONO % 11.1 % (2.0-8.0); NEUTROPHILS # 5.9 10^3/uL (1.5-8.5); NEUTROPHILS % 73.2 % (36.0-66.0); PLATELET COUNT, AUTOMATED 262 10^3/uL (150-450); RED BLOOD COUNT 5.23 10^6/uL (4.00-5.40); WHITE BLOOD COUNT 8.1 10^3/uL (4.0-10.0)
[2022-01-17 15:53] LABS: ALBUMIN 3.1 GM/DL (3.2-5.2); ALT/SGPT 24 U/L (12-78); BILIRUBIN,TOTAL 0.3 MG/DL (0.2-1.0); BLOOD UREA NITROGEN 20 MG/DL (7-18); CALCIUM LEVEL 8.5 MG/DL (8.8-10.2); CARBON DIOXIDE LEVEL 35 MEQ/L (21-32); CHLORIDE LEVEL 106 MEQ/L (98-107); CREATININE FOR GFR 0.95 MG/DL (0.55-1.30); GLOMERULAR FILTRATION RATE > 60.0 (>39); GLUCOSE, FASTING 92 MG/DL (70-100); IRON (FE) 60 UG/DL (50-170); POTASSIUM SERUM 4.7 MEQ/L (3.5-5.1); SODIUM LEVEL 141 MEQ/L (136-145); THYROID STIMULATING HORMONE 0.042 uIU/ML (0.358-3.740); TOTAL PROTEIN 6.7 GM/DL (6.4-8.2)
== END ==
LOC: M SFHCCLAY 07:55
PROVIDERS: ATTEND Family Medicine
DX: E03.9 Hypothyroidism, unspecified (principal); I10 Essential (primary) hypertension; D64.9 Anemia, unspecified

== ENCOUNTER → 2022-02-04 | Outpatient (CLI) | payer MEDICARE, OTHER | LOC: M RAD 14:00 | PROVIDERS: ATTEND Family Medicine | DX: I73.9 Peripheral vascular disease, unspecified (principal) ==

== ENCOUNTER → 2022-04-03 | Outpatient (CLI) | payer MEDICARE, OTHER ==
[2022-04-03 15:13] LABS: ALBUMIN 3.3 GM/DL (3.2-5.2); ALT/SGPT 24 U/L (12-78); BILIRUBIN,TOTAL 0.3 MG/DL (0.2-1.0); BLOOD UREA NITROGEN 16 MG/DL (7-18); CALCIUM LEVEL 9.5 MG/DL (8.8-10.2); CARBON DIOXIDE LEVEL 29 MEQ/L (21-32); CHLORIDE LEVEL 104 MEQ/L (98-107); CREATININE FOR GFR 0.78 MG/DL (0.55-1.30); GLOMERULAR FILTRATION RATE > 60.0 (>39); GLUCOSE, FASTING 96 MG/DL (70-100); POTASSIUM SERUM 4.1 MEQ/L (3.5-5.1); SODIUM LEVEL 137 MEQ/L (136-145)
== END ==
LOC: M ONCR 13:26
PROVIDERS: ATTEND General Practice
DX: C34.11 Malignant neoplasm of upper lobe, right bronchus or lung (principal)

== ENCOUNTER → 2022-04-10 | Outpatient (CLI) | payer MEDICARE, OTHER ==
[~2022-04-10] MED LIST changes: +ISOVUE-370 76% 100ML VIAL As Ordered ONE; +ISOVUE-370 76% 25ML SYRINGE As Ordered ONE
== END ==
LOC: M RAD 12:43
PROVIDERS: ATTEND General Practice
DX: C34.11 Malignant neoplasm of upper lobe, right bronchus or lung (principal)
CPT/HCPCS: 71260; Q9967

== ENCOUNTER → 2022-04-16 | Outpatient (CLI) | payer MEDICARE, OTHER ==
[~2022-04-16] MED LIST changes: -ISOVUE-370 76% 100ML VIAL As Ordered ONE; -ISOVUE-370 76% 25ML SYRINGE As Ordered ONE
== END ==
LOC: M ONCR 10:30
PROVIDERS: ATTEND General Practice
DX: Z08 Encounter for follow-up examination after completed treatment for malignant neoplasm (principal); Z85.118 Personal history of other malignant neoplasm of bronchus and lung; F17.210 Nicotine dependence, cigarettes, uncomplicated; J44.9 Chronic obstructive pulmonary disease, unspecified; Z79.1 Long term (current) use of non-steroidal anti-inflammatories (NSAID); Z79.51 Long term (current) use of inhaled steroids; Z79.82 Long term (current) use of aspirin; Z79.899 Other long term (current) drug therapy; Z92.3 Personal history of irradiation

== ENCOUNTER → 2022-07-28 | Outpatient (CLI) | payer MEDICARE, OTHER | LOC: M CLY 14:17 | PROVIDERS: ATTEND Family Medicine | DX: I10 Essential (primary) hypertension (principal) ==

== ENCOUNTER 2022-08-08 11:54 | Inpatient (IN) | payer OTHER, MEDICARE ==
[~2022-08-08] VITALS: Ht 172.7 cm; Wt 87.9 kg
[~2022-08-08 11:54] MED LIST changes: -ASPI81TA26 PO; -ATOR1TAB19 PO; -AZIT-12 PO; -CEFD300C PO; -HYDR-3713 PO; -LEVO125T4 PO; -OMEP-173 PO; -OXYB-54 PO; -PRED10TA2 PO; -ROPI2TAB3 PO; -SPIR12.9 INH; -VENTAER INH; -VITMTA PO
[2022-08-08] MEDS ORDERED: IPRATROPIUM 0.5MG/ALBUTEROL 2.5MG INH SOL UD 3ML (DUONEB) NEB ONE (12:25)
[2022-08-08 12:41] LABS: VENOUS HCO3 34.5 MEQ/L (23.0-27.0); VENOUS O2 SATURATION 64.7 % (60.0-80.0); VENOUS PARTIAL PRESSURE CO2 75.7 mmHg (38.0-50.0); VENOUS PARTIAL PRESSURE O2 34.2 mmHg (30.0-50.0); VENOUS PH 7.276 UNITS (7.330-7.430); VENOUS TOTAL CO2 36.8 MEQ/L (24.0-28.0)
[2022-08-08 12:42] LABS: BASO # 0.1 10^3/uL (0.0-0.2); BASO % 0.4 % (0.0-1.0); EOS # 0.1 10^3/uL (0.0-0.5); EOS % 0.6 % (0.0-3.0); HEMATOCRIT 55.3 % (36.0-47.0); HEMOGLOBIN 17.3 g/dl (12.0-15.5); LYMPH # 1.1 10^3/uL (1.5-5.0); LYMPH % 7.1 % (24.0-44.0); MEAN CORPUSCULAR HEMOGLOBIN 30.6 pg (27.0-33.0); MEAN CORPUSCULAR HGB CONC 31.3 g/dl (32.0-36.5); MEAN CORPUSCULAR VOLUME 97.7 fl (80.0-96.0); MONO # 1.5 10^3/uL (0.0-0.8); MONO % 9.1 % (2.0-8.0); NEUTROPHILS # 13.1 10^3/uL (1.5-8.5); NEUTROPHILS % 82.4 % (36.0-66.0); PLATELET COUNT, AUTOMATED 275 10^3/uL (150-450); RED BLOOD COUNT 5.66 10^6/uL (4.00-5.40); WHITE BLOOD COUNT 15.9 10^3/uL (4.0-10.0)
[2022-08-08] MEDS ORDERED: MORPHINE 2 MG/ML 1ML VIAL IV ONE (12:50)
[2022-08-08] MEDS ORDERED: cefTRIAXone SOD 1 GM in D5W MINI-BAG PLUS 50 ML IV ONE (12:55)
[2022-08-08] MEDS ORDERED: AZITHROMYCIN INJ 500 MG, VIAL MATE ADAPTER 1 EACH in NS 250 ML IV ONE (12:55)
[2022-08-08] MEDS ORDERED: NS 500 ML IV ONE (12:55)
[2022-08-08 13:05] LABS: BILIRUBIN,DIRECT 0.2 MG/DL (<0.4)
[2022-08-08 13:06] LABS: ALBUMIN 3.4 G/DL (3.2-5.2); ALKALINE PHOSPHATASE 123 U/L (46-116); ALT/SGPT 19 U/L (7.0-40); AST/SGOT 20 U/L (<34); BILIRUBIN,TOTAL 0.6 MG/DL (0.3-1.2); BLOOD UREA NITROGEN 16 MG/DL (9-23); CALCIUM LEVEL 9.5 MG/DL (8.3-10.6); CARBON DIOXIDE LEVEL 34 MMOL/L (20-31); CHLORIDE LEVEL 100 MMOL/L (98-107); CK-MB VALUE MASS < 1.0 NG/ML (<3.6); CPK CREATINE PHOSPHOKINASE 40 U/L (34-145); CREATININE FOR GFR 0.78 MG/DL (0.55-1.30); GLOMERULAR FILTRATION RATE > 60.0 (>39); GLUCOSE, FASTING 118 MG/DL (74-106); POTASSIUM SERUM 4.2 MMOL/L (3.5-5.1); SODIUM LEVEL 142 MMOL/L (136-145); TOTAL PROTEIN 6.8 G/DL (5.7-8.2)
[2022-08-08 13:08] LABS: THYROID STIMULATING HORMONE 0.225 uIU/ML (0.55-4.78)
[2022-08-08 13:18] LABS: INR 0.9; PROTHROMBIN TIME 12.3 SECONDS (12.5-14.5)
[2022-08-08 13:21] LABS: D-DIMER QUANT 621.32 ng/ml (<500)
[2022-08-08 13:27] LABS: RSV AMPLIFICATION NEGATIVE (NEGATIVE)
[2022-08-08] MEDS ORDERED: FUROSEMIDE 40MG/4ML VIAL IV ONE (13:45)
[2022-08-08 14:08] LABS: CK-MB VALUE MASS < 1.0 NG/ML (<3.6)
[2022-08-08 14:16] LABS: CPK CREATINE PHOSPHOKINASE 36 U/L (34-145); MB/CK RELATIVE INDEX 2.77 (< OR =4)
[2022-08-08] MEDS ORDERED: OMEP-173 PO (14:57)
[2022-08-08] MEDS ORDERED: ASPI81TA26 PO (14:57)
[2022-08-08] MEDS ORDERED: VENTAER INH (14:57)
[2022-08-08] MEDS ORDERED: SPIR12.9 INH (14:57)
[2022-08-08] MEDS ORDERED: LEVO125T4 PO (14:57)
[2022-08-08] MEDS ORDERED: VITMTA PO (14:57)
[2022-08-08] MEDS ORDERED: OXYB-54 PO (15:00)
[2022-08-08] MEDS ORDERED: ATOR1TAB19 PO (15:00)
[2022-08-08] MEDS ORDERED: ROPI2TAB3 PO (15:18)
[2022-08-08] MEDS ORDERED: HYDR-3713 PO (15:18)
[2022-08-08] MEDS ORDERED: HOME MED LIST COMPLETE! XX SCH ×2 (15:25→19:10)
[2022-08-08] MEDS ORDERED: ISOVUE-370 76% 100ML VIAL As Ordered ONE (17:23)
[2022-08-08 18:34] VITALS: BP 121/69
[2022-08-08 19:00] VITALS: BP 123/81
[2022-08-08 20:00] VITALS: BP 93/57
[2022-08-08] MEDS: IPRATROPIUM 0.5MG/ALBUTEROL 2.5MG INH SOL UD 3ML (DUONEB) NEB SCH (20:07)
[2022-08-08] MEDS: BUDESONIDE 0.5 MG/2 ML INHALATION SUSPENSION INH SCH (20:07)
[2022-08-08 21:02] VITALS: BP 87/52
[2022-08-08 21:49] LABS: ABG BASE EXCESS 4.5 (-2.0-2.0); ABG HCO3 31.8 MEQ/L (22.0-26.0); ABG O2 SATURATION 96.6 % (95.0-99.0); ABG PARTIAL PRESSURE CO2 57.8 mmHg (35.0-45.0); ABG PARTIAL PRESSURE O2 84.8 mmHg (75.0-100.0); ABG STANDARD HCO3 28.4 MEQ/L (22.0-26.0); ABG TOTAL CO2 33.6 MEQ/L (23.0-31.0); ABG pH (ARTERIAL) 7.359 UNITS (7.350-7.450)
[2022-08-08 22:00] VITALS: BP 101/51
[2022-08-08] MEDS: HEPARIN SOD (PORCINE) 5000UNITS/ML 1ML VIAL/SYRINGE SC SCH (22:28)
[2022-08-08 23:01] VITALS: BP 92/53
[2022-08-09] VITALS (18 sets, daily range): BP systolic 96–143; BP diastolic 50–76
[2022-08-09] MEDS ORDERED: methylPREDNISolone 125MG 2ML VIAL IV SCH
[2022-08-09] MEDS: MONTELUKAST 10 MG TAB PO SCH ×2 (04:33→20:06)
[2022-08-09 05:35] LABS: HEMATOCRIT 48.9 % (36.0-47.0); HEMOGLOBIN 15.4 g/dl (12.0-15.5); MEAN CORPUSCULAR HEMOGLOBIN 30.7 pg (27.0-33.0); MEAN CORPUSCULAR HGB CONC 31.5 g/dl (32.0-36.5); MEAN CORPUSCULAR VOLUME 97.4 fl (80.0-96.0); PLATELET COUNT, AUTOMATED 239 10^3/uL (150-450); RED BLOOD COUNT 5.02 10^6/uL (4.00-5.40); WHITE BLOOD COUNT 12.4 10^3/uL (4.0-10.0)
[2022-08-09 05:40] LABS: ABG BASE EXCESS 4.3 (-2.0-2.0); ABG HCO3 31.5 MEQ/L (22.0-26.0); ABG O2 SATURATION 96.6 % (95.0-99.0); ABG PARTIAL PRESSURE CO2 57.1 mmHg (35.0-45.0); ABG PARTIAL PRESSURE O2 86.5 mmHg (75.0-100.0); ABG STANDARD HCO3 28.3 MEQ/L (22.0-26.0); ABG TOTAL CO2 33.3 MEQ/L (23.0-31.0)
[2022-08-09 05:50] LABS: BLOOD UREA NITROGEN 17 MG/DL (9-23); CALCIUM LEVEL 8.6 MG/DL (8.3-10.6); CARBON DIOXIDE LEVEL 30 MMOL/L (20-31); CHLORIDE LEVEL 104 MMOL/L (98-107); CREATININE FOR GFR 0.75 MG/DL (0.55-1.30); GLOMERULAR FILTRATION RATE > 60.0 (>39); GLUCOSE, FASTING 128 MG/DL (74-106); POTASSIUM SERUM 4.2 MMOL/L (3.5-5.1); SODIUM LEVEL 142 MMOL/L (136-145)
[2022-08-09] MEDS: LEVOTHYROXINE 125MCG TABLET (0.125MG) PO SCH (05:57)
[2022-08-09] MEDS: HEPARIN SOD (PORCINE) 5000UNITS/ML 1ML VIAL/SYRINGE SC SCH ×3 (05:57→22:34)
[2022-08-09] MEDS: IPRATROPIUM 0.5MG/ALBUTEROL 2.5MG INH SOL UD 3ML (DUONEB) NEB SCH ×4 (08:01→20:30)
[2022-08-09] MEDS: BUDESONIDE 0.5 MG/2 ML INHALATION SUSPENSION INH SCH ×2 (08:01→20:30)
[2022-08-09] MEDS: oxyBUTYnin *DITROPAN XL* 5 MG TABCR PO SCH (09:00)
[2022-08-09] MEDS ORDERED: KETOROLAC 30 MG/ML 1ML VIAL IV ONE (09:05)
[2022-08-09] MEDS: methylPREDNISolone 40MG 1ML VIAL IV SCH ×2 (10:03→16:12)
[2022-08-09] MEDS: OMEPRAZOLE 20MG CAP PO SCH (10:04)
[2022-08-09] MEDS: AZITHROMYCIN 250MG TABLET PO SCH (10:04)
[2022-08-09] MEDS: FAMOTIDINE 20 MG TAB PO SCH (10:04)
[2022-08-09] MEDS: cefTRIAXone SOD 1 GM in D5W MINI-BAG PLUS 50 ML IV SCH (10:05)
[2022-08-09] MEDS ORDERED: DOCUSATE SODIUM 100MG CAPSULE PO ONE (20:00)
[2022-08-09] MEDS: ASPIRIN 81MG ENTERIC TABLET PO SCH (20:06)
[2022-08-09] MEDS: BACLOFEN 10 MG TAB PO SCH (20:06)
[2022-08-09] MEDS: ATORVASTATIN 10 MG TAB PO SCH (20:06)
[2022-08-09] MEDS: rOPINIRole 1MG TAB PO SCH (20:07)
[2022-08-10] VITALS: BP 108/58
[2022-08-10] MEDS: methylPREDNISolone 40MG 1ML VIAL IV SCH ×3 (00:24→15:50)
[2022-08-10 04:03] VITALS: BP 126/62
[2022-08-10] MEDS: LEVOTHYROXINE 125MCG TABLET (0.125MG) PO SCH (05:41)
[2022-08-10] MEDS: HEPARIN SOD (PORCINE) 5000UNITS/ML 1ML VIAL/SYRINGE SC SCH ×3 (05:41→21:57)
[2022-08-10] MEDS: IPRATROPIUM 0.5MG/ALBUTEROL 2.5MG INH SOL UD 3ML (DUONEB) NEB SCH ×4 (07:30→19:24)
[2022-08-10] MEDS: BUDESONIDE 0.5 MG/2 ML INHALATION SUSPENSION INH SCH ×2 (07:30→19:24)
[2022-08-10 08:00] VITALS: BP 129/60
[2022-08-10 08:20] LABS: BASO % 0.1 % (0.0-1.0); HEMOGLOBIN 14.8 g/dl (12.0-15.5); LYMPH # 0.7 10^3/uL (1.5-5.0); LYMPH % 5.1 % (24.0-44.0); MEAN CORPUSCULAR HEMOGLOBIN 30.7 pg (27.0-33.0); MEAN CORPUSCULAR HGB CONC 31.5 g/dl (32.0-36.5); MEAN CORPUSCULAR VOLUME 97.5 fl (80.0-96.0); MONO % 6.8 % (2.0-8.0); NEUTROPHILS # 12.8 10^3/uL (1.5-8.5); NEUTROPHILS % 87.5 % (36.0-66.0); PLATELET COUNT, AUTOMATED 262 10^3/uL (150-450); RED BLOOD COUNT 4.82 10^6/uL (4.00-5.40); WHITE BLOOD COUNT 14.6 10^3/uL (4.0-10.0)
[2022-08-10] MEDS: EXCEDRIN MIGRAINE TABLET PO PRN ×2 (08:34→20:27)
[2022-08-10] MEDS: FAMOTIDINE 20 MG TAB PO SCH (08:34)
[2022-08-10] MEDS: cefTRIAXone SOD 1 GM in D5W MINI-BAG PLUS 50 ML IV SCH (08:34)
[2022-08-10] MEDS: OMEPRAZOLE 20MG CAP PO SCH (08:34)
[2022-08-10] MEDS: oxyBUTYnin *DITROPAN XL* 5 MG TABCR PO SCH (08:34)
[2022-08-10] MEDS: AZITHROMYCIN 250MG TABLET PO SCH (08:34)
[2022-08-10 08:58] LABS: BLOOD UREA NITROGEN 29 MG/DL (9-23); CALCIUM LEVEL 9.1 MG/DL (8.3-10.6); CARBON DIOXIDE LEVEL 34 MMOL/L (20-31); CHLORIDE LEVEL 102 MMOL/L (98-107); CREATININE FOR GFR 0.76 MG/DL (0.55-1.30); GLOMERULAR FILTRATION RATE > 60.0 (>39); GLUCOSE, FASTING 111 MG/DL (74-106); POTASSIUM SERUM 4.6 MMOL/L (3.5-5.1); SODIUM LEVEL 141 MMOL/L (136-145)
[2022-08-10 12:00] VITALS: BP 125/64
[2022-08-10 13:05] LABS: ABG BASE EXCESS 4.6 (-2.0-2.0); ABG HCO3 32.4 MEQ/L (22.0-26.0); ABG O2 SATURATION 94.5 % (95.0-99.0); ABG PARTIAL PRESSURE O2 70.7 mmHg (75.0-100.0); ABG STANDARD HCO3 28.5 MEQ/L (22.0-26.0); ABG TOTAL CO2 34.2 MEQ/L (23.0-31.0); ABG pH (ARTERIAL) 7.344 UNITS (7.350-7.450)
[2022-08-10 13:06] LABS: ABG PARTIAL PRESSURE CO2 60.8 mmHg (35.0-45.0)
[2022-08-10] MEDS ORDERED: BISACODYL 10MG SUPP PR PRN (13:15)
[2022-08-10] MEDS ORDERED: MOM 30ML SUSPENSION UDC PO ONE (13:15)
[2022-08-10] MEDS: SENOKOT S TAB PO SCH ×2 (13:48→20:27)
[2022-08-10 15:36] VITALS: BP 132/57
[2022-08-10] MEDS: rOPINIRole 1MG TAB PO SCH (20:27)
[2022-08-10] MEDS: ASPIRIN 81MG ENTERIC TABLET PO SCH (20:27)
[2022-08-10] MEDS: BACLOFEN 10 MG TAB PO SCH (20:27)
[2022-08-10] MEDS: MONTELUKAST 10 MG TAB PO SCH (20:27)
[2022-08-10] MEDS: ATORVASTATIN 10 MG TAB PO SCH (20:27)
[2022-08-10 20:29] VITALS: BP 146/63
[2022-08-11] MEDS: methylPREDNISolone 40MG 1ML VIAL IV SCH (00:26)
[2022-08-11 04:04] VITALS: BP 136/75
[2022-08-11] MEDS: EXCEDRIN MIGRAINE TABLET PO PRN (05:48)
[2022-08-11] MEDS: LEVOTHYROXINE 125MCG TABLET (0.125MG) PO SCH (05:49)
[2022-08-11] MEDS: HEPARIN SOD (PORCINE) 5000UNITS/ML 1ML VIAL/SYRINGE SC SCH (05:49)
[2022-08-11 07:02] VITALS: BP 118/77
[2022-08-11] MEDS: ALBUTEROL SULFATE 2.5MG/0.5ML INH NEB SOLN NEB SCH ×2 (08:00→11:37)
[2022-08-11] MEDS ORDERED: SYMBICORT 160/4.5MCG INHALER 6GM INH SCH (08:00)
[2022-08-11] MEDS ORDERED: TIOTROPIUM INHALER/CAPSULE (SPIRIVA) INH SCH (08:00)
[2022-08-11] MEDS ORDERED: ISOVUE-370 76% 100ML VIAL As Ordered ONE (08:19)
[2022-08-11] MEDS: cefTRIAXone SOD 1 GM in D5W MINI-BAG PLUS 50 ML IV SCH (08:37)
[2022-08-11] MEDS: OMEPRAZOLE 20MG CAP PO SCH (08:38)
[2022-08-11] MEDS: oxyBUTYnin *DITROPAN XL* 5 MG TABCR PO SCH (08:38)
[2022-08-11] MEDS: FAMOTIDINE 20 MG TAB PO SCH (08:38)
[2022-08-11] MEDS: SENOKOT S TAB PO SCH (08:38)
[2022-08-11] MEDS: AZITHROMYCIN 250MG TABLET PO SCH (08:38)
[2022-08-11] MEDS ORDERED: methylPREDNISolone 40MG 1ML VIAL IV SCH (09:00)
[2022-08-11] MEDS ORDERED: MOM 30ML SUSPENSION UDC PO SCH (09:00)
[2022-08-11] MEDS ORDERED: CEFD300C PO (10:43)
[2022-08-11] MEDS ORDERED: PRED10TA2 PO (10:43)
[2022-08-11] MEDS ORDERED: AZIT-12 PO (10:43)
== END 2022-08-11 12:05 | disposition home or self-care (01) | DRG 133 ==
LOC: M ED 11:54 → M ED INP 16:50 → ENRESERV 17:54 → M ICU 18:21
PROVIDERS: ADMIT Internal Medicine; ATTEND Internal Medicine Nephrology
PROC: B246ZZZ Ultrasonography of Right and Left Heart (ICD-10-PCS; principal; 2022-08-10)
DX: J96.21 Acute and chronic respiratory failure with hypoxia (principal); J18.9 Pneumonia, unspecified organism; J81.1 Chronic pulmonary edema; J44.0 Chronic obstructive pulmonary disease with (acute) lower respiratory infection; Z99.81 Dependence on supplemental oxygen; F03.90 Unspecified dementia, unspecified severity, without behavioral disturbance, psychotic disturbance, mood disturbance, and anxiety; J44.1 Chronic obstructive pulmonary disease with (acute) exacerbation; J20.9 Acute bronchitis, unspecified; G47.33 Obstructive sleep apnea (adult) (pediatric); I73.9 Peripheral vascular disease, unspecified; E03.9 Hypothyroidism, unspecified; G43.909 Migraine, unspecified, not intractable, without status migrainosus; E78.5 Hyperlipidemia, unspecified; K21.9 Gastro-esophageal reflux disease without esophagitis; M54.50 Low back pain, unspecified; G89.29 Other chronic pain; N39.41 Urge incontinence; F17.210 Nicotine dependence, cigarettes, uncomplicated; M62.838 Other muscle spasm; I51.9 Heart disease, unspecified; Z79.890 Hormone replacement therapy; Z85.118 Personal history of other malignant neoplasm of bronchus and lung; Z92.3 Personal history of irradiation; Z79.82 Long term (current) use of aspirin; Z79.52 Long term (current) use of systemic steroids; Z79.899 Other long term (current) drug therapy; Z79.891 Long term (current) use of opiate analgesic; J96.22 Acute and chronic respiratory failure with hypercapnia

== ENCOUNTER → 2022-08-08 | Outpatient (REF) | payer MEDICARE, OTHER ==
[~2022-08-08] MED LIST changes: +ASPI81TA26 PO; +ATOR1TAB19 PO; +AZIT-12 PO; +CEFD300C PO; -FURO20TA2; +FURO20TA2 PO; +HYDR-3713 PO; +LEVO125T4 PO; +OMEP-173 PO; +OXYB-54 PO; +PRED10TA2 PO; +ROPI2TAB3 PO; +SPIR12.9 INH; +VENTAER INH; +VITMTA PO
[2022-08-08 12:54] LABS: ALBUMIN 3.1 G/DL (3.2-5.2); BLOOD UREA NITROGEN 18 MG/DL (9-23); CALCIUM LEVEL 9.1 MG/DL (8.3-10.6); CARBON DIOXIDE LEVEL 36 MMOL/L (20-31); CHLORIDE LEVEL 102 MMOL/L (98-107); CREATININE FOR GFR 0.85 MG/DL (0.55-1.30); GLOMERULAR FILTRATION RATE > 60.0 (>39); GLUCOSE, FASTING 80 MG/DL (74-106); PHOSPHORUS LEVEL 3.2 MG/DL (2.4-5.1); POTASSIUM SERUM 4.5 MMOL/L (3.5-5.1); SODIUM LEVEL 142 MMOL/L (136-145)
== END ==
LOC: M SFHCCLAY 08:11
PROVIDERS: ATTEND Family Medicine
DX: I10 Essential (primary) hypertension (principal)

== ENCOUNTER → 2022-09-01 | Outpatient (CLI) | payer MEDICARE, OTHER ==
[~2022-09-01] MED LIST changes: +ASPI81TA26 PO; +ATOR1TAB19 PO; +AZIT-12 PO; +CEFD300C PO; +HYDR-3713 PO; +LEVO125T4 PO; +OMEP-173 PO; +OXYB-54 PO; +PRED10TA2 PO; +ROPI2TAB3 PO; +SPIR12.9 INH; +VENTAER INH; +VITMTA PO
== END ==
LOC: M PLARAD 09:55
PROVIDERS: ATTEND Family Medicine
DX: J44.9 Chronic obstructive pulmonary disease, unspecified (principal); F17.200 Nicotine dependence, unspecified, uncomplicated; R07.89 Other chest pain; R91.8 Other nonspecific abnormal finding of lung field
CPT/HCPCS: 78815; A9552

== ENCOUNTER → 2022-10-17 | Outpatient (CLI) | payer MEDICARE, OTHER ==
[~2022-10-17] MED LIST changes: +NITR0.4S14 SL
== END ==
LOC: M ONCR 10:29
PROVIDERS: ATTEND General Practice
DX: Z08 Encounter for follow-up examination after completed treatment for malignant neoplasm (principal); Z85.110 Personal history of malignant carcinoid tumor of bronchus and lung; J44.9 Chronic obstructive pulmonary disease, unspecified; R07.9 Chest pain, unspecified; Z66 Do not resuscitate; Z77.090 Contact with and (suspected) exposure to asbestos; Z79.890 Hormone replacement therapy; Z79.891 Long term (current) use of opiate analgesic; Z79.899 Other long term (current) drug therapy; Z79.82 Long term (current) use of aspirin; Z92.3 Personal history of irradiation

== ENCOUNTER → 2022-10-27 | Outpatient (REF) | payer MEDICARE, OTHER ==
[2022-10-27 17:36] LABS: BASO # 0.1 10^3/uL (0.0-0.2); BASO % 0.9 % (0.0-1.0); EOS # 0.2 10^3/uL (0.0-0.5); HEMATOCRIT 52.1 % (36.0-47.0); HEMOGLOBIN 16.3 g/dl (12.0-15.5); LYMPH # 1.5 10^3/uL (1.5-5.0); LYMPH % 17.6 % (24.0-44.0); MEAN CORPUSCULAR HEMOGLOBIN 30.4 pg (27.0-33.0); MEAN CORPUSCULAR HGB CONC 31.3 g/dl (32.0-36.5); MONO # 0.9 10^3/uL (0.0-0.8); MONO % 10.4 % (2.0-8.0); NEUTROPHILS # 5.8 10^3/uL (1.5-8.5); PLATELET COUNT, AUTOMATED 286 10^3/uL (150-450); RED BLOOD COUNT 5.37 10^6/uL (4.00-5.40); WHITE BLOOD COUNT 8.5 10^3/uL (4.0-10.0)
[2022-10-27 17:41] LABS: ALBUMIN 3.4 G/DL (3.2-5.2); ALKALINE PHOSPHATASE 92 U/L (46-116); ALT/SGPT 15 U/L (7.0-40); AST/SGOT 15 U/L (<34); BILIRUBIN,TOTAL 0.3 MG/DL (0.3-1.2); BLOOD UREA NITROGEN 16 MG/DL (9-23); CALCIUM LEVEL 9.4 MG/DL (8.3-10.6); CARBON DIOXIDE LEVEL 35 MMOL/L (20-31); CHLORIDE LEVEL 105 MMOL/L (98-107); CREATININE FOR GFR 0.81 MG/DL (0.55-1.30); GLOMERULAR FILTRATION RATE > 60.0 (>39); GLUCOSE, FASTING 106 MG/DL (74-106); SODIUM LEVEL 143 MMOL/L (136-145); TOTAL PROTEIN 6.1 G/DL (5.7-8.2)
[2022-10-27 17:42] LABS: THYROID STIMULATING HORMONE 0.186 uIU/ML (0.55-4.78)
== END ==
LOC: M SFHCCLAY 14:34
PROVIDERS: ATTEND Family Medicine
DX: E03.9 Hypothyroidism, unspecified (principal); I10 Essential (primary) hypertension

== ENCOUNTER → 2023-03-20 | Outpatient (CLI) | payer MEDICARE, OTHER ==
[~2023-03-20] MED LIST changes: -ROPI2TAB3 PO; +ROPI2TAB46 PO
== END ==
LOC: M RAD 10:18
PROVIDERS: ATTEND Internal Medicine Pulmonary Disease
DX: R91.8 Other nonspecific abnormal finding of lung field (principal); E27.9 Disorder of adrenal gland, unspecified

== ENCOUNTER 2023-03-31 17:01 | Emergency (ER) | payer MEDICARE, OTHER ==
[~2023-03-31] VITALS: Ht 172.7 cm; Wt 95.7 kg
[2023-03-31 17:03] VITALS: BP 135/66; TEMP 98.9; O2SAT 91
[2023-03-31] MEDS ORDERED: ATOR1TAB21 PO (17:17)
[2023-03-31] MEDS ORDERED: TREL1AER PO (17:17)
[2023-03-31 19:42] LABS: BASO # 0.1 10^3/uL (0.0-0.2); BASO % 1.2 % (0.0-1.0); EOS # 0.2 10^3/uL (0.0-0.5); EOS % 2.1 % (0.0-3.0); HEMATOCRIT 51.7 % (36.0-47.0); HEMOGLOBIN 16.4 g/dl (12.0-15.5); LYMPH # 1.4 10^3/uL (1.5-5.0); LYMPH % 16.5 % (24.0-44.0); MEAN CORPUSCULAR HEMOGLOBIN 31.3 pg (27.0-33.0); MEAN CORPUSCULAR HGB CONC 31.7 g/dl (32.0-36.5); MEAN CORPUSCULAR VOLUME 98.7 fl (80.0-96.0); MONO # 0.8 10^3/uL (0.0-0.8); MONO % 9.5 % (2.0-8.0); NEUTROPHILS # 5.9 10^3/uL (1.5-8.5); NEUTROPHILS % 70.5 % (36.0-66.0); PLATELET COUNT, AUTOMATED 240 10^3/uL (150-450); RED BLOOD COUNT 5.24 10^6/uL (4.00-5.40); WHITE BLOOD COUNT 8.4 10^3/uL (4.0-10.0)
[2023-03-31 20:11] LABS: BLOOD UREA NITROGEN 18 MG/DL (9-23); CALCIUM LEVEL 8.8 MG/DL (8.3-10.6); CARBON DIOXIDE LEVEL 37 MMOL/L (20-31); CHLORIDE LEVEL 104 MMOL/L (98-107); CREATININE FOR GFR 0.73 MG/DL (0.55-1.30); GLOMERULAR FILTRATION RATE > 60.0 (>39); GLUCOSE, FASTING 92 MG/DL (74-106); POTASSIUM SERUM 4.5 MMOL/L (3.5-5.1); SODIUM LEVEL 144 MMOL/L (136-145)
== END 2023-03-31 21:48 | disposition home or self-care (01) ==
LOC: M ED 17:01
DX: R55 Syncope and collapse (principal); I10 Essential (primary) hypertension; I50.20 Unspecified systolic (congestive) heart failure; R91.1 Solitary pulmonary nodule; J44.9 Chronic obstructive pulmonary disease, unspecified; F17.210 Nicotine dependence, cigarettes, uncomplicated; Z79.899 Other long term (current) drug therapy; Z79.82 Long term (current) use of aspirin; Z79.51 Long term (current) use of inhaled steroids
CPT/HCPCS: 36415; 70450; 70486; 71046; 72125; 80048; 83880; 84484; 85025; 93005; 99284; G0463

== ENCOUNTER → 2023-04-21 | Outpatient (CLI) | payer MEDICARE, OTHER ==
[~2023-04-21] MED LIST changes: +ATOR1TAB21 PO; +TREL1AER PO
== END ==
LOC: M ONCR 10:09
PROVIDERS: ATTEND General Practice
DX: Z08 Encounter for follow-up examination after completed treatment for malignant neoplasm (principal); J44.9 Chronic obstructive pulmonary disease, unspecified; G47.33 Obstructive sleep apnea (adult) (pediatric); L59.8 Other specified disorders of the skin and subcutaneous tissue related to radiation; Z85.118 Personal history of other malignant neoplasm of bronchus and lung; F17.210 Nicotine dependence, cigarettes, uncomplicated; R91.8 Other nonspecific abnormal finding of lung field; Z57.5 Occupational exposure to toxic agents in other industries; Z71.2 Person consulting for explanation of examination or test findings; Z77.090 Contact with and (suspected) exposure to asbestos; Z79.51 Long term (current) use of inhaled steroids; Z79.890 Hormone replacement therapy; Z79.82 Long term (current) use of aspirin; Z79.899 Other long term (current) drug therapy; Z92.3 Personal history of irradiation; Z99.81 Dependence on supplemental oxygen; Z99.89 Dependence on other enabling machines and devices

== ENCOUNTER → 2023-05-22 | Outpatient (REF) | payer MEDICARE, OTHER ==
[2023-05-22 18:27] LABS: BLOOD UREA NITROGEN 20 MG/DL (9-23); GLOMERULAR FILTRATION RATE > 60.0 (>39)
== END ==
LOC: M LABDRAWC 17:14
PROVIDERS: ATTEND Surgery Vascular Surgery
DX: I70.209 Unspecified atherosclerosis of native arteries of extremities, unspecified extremity (principal)

== ENCOUNTER → 2023-05-26 | Outpatient (CLI) | payer MEDICARE, OTHER ==
[~2023-05-26] MED LIST changes: +ISOVUE-370 76% 100ML VIAL As Ordered ONE
== END ==
LOC: M RAD 09:03
PROVIDERS: ATTEND Surgery Vascular Surgery
DX: I70.209 Unspecified atherosclerosis of native arteries of extremities, unspecified extremity (principal)
CPT/HCPCS: 75635; Q9967

== ENCOUNTER → 2023-06-04 | Outpatient (REF) | payer MEDICARE, OTHER ==
[~2023-06-04] MED LIST changes: -ISOVUE-370 76% 100ML VIAL As Ordered ONE
[2023-06-04 19:12] LABS: ALBUMIN 3.7 G/DL (3.2-5.2); ALKALINE PHOSPHATASE 106 U/L (46-116); ALT/SGPT 18 U/L (7.0-40); AST/SGOT 17 U/L (<34); BILIRUBIN,TOTAL 0.5 MG/DL (0.3-1.2); BLOOD UREA NITROGEN 18 MG/DL (9-23); CALCIUM LEVEL 9.7 MG/DL (8.3-10.6); CARBON DIOXIDE LEVEL 36 MMOL/L (20-31); CHLORIDE LEVEL 99 MMOL/L (98-107); CREATININE FOR GFR 0.71 MG/DL (0.55-1.30); GLOMERULAR FILTRATION RATE > 60.0 (>39); GLUCOSE, FASTING 90 MG/DL (74-106); POTASSIUM SERUM 4.5 MMOL/L (3.5-5.1); SODIUM LEVEL 141 MMOL/L (136-145); TOTAL PROTEIN 6.8 G/DL (5.7-8.2)
[2023-06-04 19:17] LABS: FREE T4 1.52 NG/DL (0.89-1.76); THYROID STIMULATING HORMONE 0.094 uIU/ML (0.55-4.78)
== END ==
LOC: M SFHCCLAY 14:31
PROVIDERS: ATTEND Family Medicine
DX: E03.9 Hypothyroidism, unspecified (principal); I10 Essential (primary) hypertension

== ENCOUNTER → 2023-07-20 | Outpatient (REF) | payer MEDICARE, OTHER ==
[2023-07-20 18:53] LABS: CHOLESTEROL RISK RATIO 2.54 (<5); HDL CHOLESTEROL 62.4 MG/DL (>40); LDL CHOLESTEROL 79.8 MG/DL (<100); NON-HDL-C 96.6 MG/DL
== END ==
LOC: M LABDRAWC 17:29
PROVIDERS: ATTEND Physician Assistant
DX: E78.49 Other hyperlipidemia (principal)

== ENCOUNTER → 2023-10-23 | Outpatient (CLI) | payer MEDICARE, OTHER | LOC: M ONCR 10:16 | PROVIDERS: ATTEND General Practice | DX: Z08 Encounter for follow-up examination after completed treatment for malignant neoplasm (principal); Z85.118 Personal history of other malignant neoplasm of bronchus and lung; J44.9 Chronic obstructive pulmonary disease, unspecified; F17.210 Nicotine dependence, cigarettes, uncomplicated; Z71.2 Person consulting for explanation of examination or test findings; Z77.090 Contact with and (suspected) exposure to asbestos; Z77.29 Contact with and (suspected) exposure to other hazardous substances; Z79.51 Long term (current) use of inhaled steroids; Z79.82 Long term (current) use of aspirin; Z79.890 Hormone replacement therapy; Z79.899 Other long term (current) drug therapy; Z92.3 Personal history of irradiation; Z99.89 Dependence on other enabling machines and devices ==

== ENCOUNTER 2024-01-12 23:07 | Inpatient (IN) | payer MEDICARE, OTHER ==
[~2024-01-12] VITALS: Ht 172.7 cm; Wt 85.0 kg
[~2024-01-12 23:07] MED LIST changes: +MEMA10TA PO; -MEMA10TA19 PO
[2024-01-12 23:59] LABS: VENOUS BASE EXCESS 5.5 (-2.0-2.0); VENOUS HCO3 35.8 MMOL/L (23.0-27.0); VENOUS PARTIAL PRESSURE CO2 76.4 mmHg (38.0-50.0); VENOUS PARTIAL PRESSURE O2 40.1 mmHg (30.0-50.0); VENOUS PH 7.289 UNITS (7.330-7.430); VENOUS STANDARD HCO3 28.8 MMOL/L; VENOUS TOTAL CO2 38.2 MMOL/L (24.0-28.0)
[2024-01-13] VITALS (13 sets, daily range): BP systolic 102–160; BP diastolic 55–85; TEMP 97.3–98; O2SAT 90–97
[2024-01-13 00:36] LABS: CK-MB VALUE MASS < 1.0 NG/ML (<3.6)
[2024-01-13] MEDS: IPRATROPIUM 0.5MG/ALBUTEROL 2.5MG INH SOL UD 3ML (DUONEB) NEB SCH ×2 (00:36→07:09)
[2024-01-13 00:37] LABS: ALBUMIN 3.2 G/DL (3.2-5.2); ALKALINE PHOSPHATASE 106 U/L (46-116); ALT/SGPT 18 U/L (7.0-40); AST/SGOT 14 U/L (<34); BILIRUBIN,DIRECT < 0.1 MG/DL (<0.4); BILIRUBIN,TOTAL 0.2 MG/DL (0.3-1.2); BLOOD UREA NITROGEN 22 MG/DL (9-23); CALCIUM LEVEL 9.5 MG/DL (8.3-10.6); CARBON DIOXIDE LEVEL 37 MMOL/L (20-31); CHLORIDE LEVEL 102 MMOL/L (98-107); CPK CREATINE PHOSPHOKINASE 44 U/L (34-145); CREATININE FOR GFR 0.91 MG/DL (0.55-1.30); GLOMERULAR FILTRATION RATE > 60.0 (>39); GLUCOSE, FASTING 121 MG/DL (74-106); MB/CK RELATIVE INDEX 2.27 (< OR =4); POTASSIUM SERUM 4.4 MMOL/L (3.5-5.1); SODIUM LEVEL 142 MMOL/L (136-145); TOTAL PROTEIN 6.2 G/DL (5.7-8.2)
[2024-01-13 00:40] LABS: BASO # 0.1 10^3/uL (0.0-0.2); BASO % 0.9 % (0.0-1.0); EOS # 0.1 10^3/uL (0.0-0.5); EOS % 0.7 % (0.0-3.0); HEMATOCRIT 52.2 % (36.0-47.0); HEMOGLOBIN 16.6 g/dl (12.0-15.5); LYMPH # 0.8 10^3/uL (1.5-5.0); LYMPH % 6.8 % (24.0-44.0); MEAN CORPUSCULAR HEMOGLOBIN 31.1 pg (27.0-33.0); MEAN CORPUSCULAR HGB CONC 31.8 g/dl (32.0-36.5); MEAN CORPUSCULAR VOLUME 97.8 fl (80.0-96.0); MONO # 0.7 10^3/uL (0.0-0.8); MONO % 6.1 % (2.0-8.0); NEUTROPHILS # 9.8 10^3/uL (1.5-8.5); NEUTROPHILS % 85.2 % (36.0-66.0); PLATELET COUNT, AUTOMATED 252 10^3/uL (150-450); RED BLOOD COUNT 5.34 10^6/uL (4.00-5.40); WHITE BLOOD COUNT 11.6 10^3/uL (4.0-10.0)
[2024-01-13 01:52] LABS: ABG BASE EXCESS 2.4 (-2.0-2.0); ABG HCO3 31.9 MMOL/L (22.0-26.0); ABG O2 SATURATION 92.4 % (95.0-99.0); ABG PARTIAL PRESSURE O2 64.1 mmHg (75.0-100.0); ABG STANDARD HCO3 26.4 MMOL/L. (22.0-26.0); ABG pH (ARTERIAL) 7.283 UNITS (7.350-7.450)
[2024-01-13 01:59] LABS: ABG PARTIAL PRESSURE CO2 68.9 mmHg (35.0-45.0)
[2024-01-13] MEDS ORDERED: IPRATROPIUM 0.5MG/ALBUTEROL 2.5MG INH SOL UD 3ML (DUONEB) NEB PRN (02:40)
[2024-01-13] MEDS: cefTRIAXone SOD 2 GM in D5W MINI-BAG PLUS 50 ML IV ONE (02:47)
[2024-01-13 03:20] LABS: PROCALCITONIN <0.04 ng/ml
[2024-01-13] MEDS: AZITHROMYCIN INJ 500 MG, VIAL MATE ADAPTER 1 EACH in NS 250 ML IV ONE (03:58)
[2024-01-13] MEDS: methylPREDNISolone 125MG 2ML VIAL IV ONE (03:58)
[2024-01-13 04:02] LABS: CK-MB VALUE MASS 1.3 NG/ML (<3.6)
[2024-01-13 04:08] LABS: MB/CK RELATIVE INDEX 2.95 (< OR =4)
[2024-01-13] MEDS ORDERED: ISOS1TAB35 PO (04:45)
[2024-01-13] MEDS ORDERED: FLUT1BLS8 INH (04:45)
[2024-01-13] MEDS ORDERED: MULT-40 PO (04:45)
[2024-01-13] MEDS ORDERED: OCUVTAB4 PO (04:45)
[2024-01-13] MEDS ORDERED: IPRA0.00 INH (04:45)
[2024-01-13] MEDS ORDERED: NITR4TASL SL (04:45)
[2024-01-13] MEDS ORDERED: ATOR1TAB21 PO (04:45)
[2024-01-13] MEDS ORDERED: HOME MED LIST COMPLETE! XX SCH (04:50)
[2024-01-13 06:37] LABS: ABG BASE EXCESS 2.5 (-2.0-2.0); ABG HCO3 31.9 MMOL/L (22.0-26.0); ABG O2 SATURATION 96.5 % (95.0-99.0); ABG PARTIAL PRESSURE O2 85.8 mmHg (75.0-100.0); ABG STANDARD HCO3 26.7 MMOL/L. (22.0-26.0); ABG pH (ARTERIAL) 7.285 UNITS (7.350-7.450)
[2024-01-13 06:44] LABS: ABG PARTIAL PRESSURE CO2 68.6 mmHg (35.0-45.0)
[2024-01-13] MEDS: ENOXAPARIN 40MG/0.4ML SYRINGE (J1650 PER 10MG) SC SCH (08:35)
[2024-01-13] MEDS ORDERED: NITROGLYCERIN 0.4MG SUBL TABLET SL PRN (10:30)
[2024-01-13] MEDS: LEVOTHYROXINE 125MCG TABLET (0.125MG) PO SCH (11:01)
[2024-01-13] MEDS: ISOSORBIDE MON. (IMDUR) 30MG XR TAB PO SCH (11:01)
[2024-01-13] MEDS: FUROSEMIDE 20 MG TAB PO SCH (11:01)
[2024-01-13] MEDS: oxyBUTYnin *DITROPAN XL* 5 MG TABCR PO SCH (11:01)
[2024-01-13] MEDS: OMEPRAZOLE 20MG CAP PO SCH (11:02)
[2024-01-13] MEDS: methylPREDNISolone 125MG 2ML VIAL IV SCH (11:43)
[2024-01-13] MEDS: ACETAMINOPHEN TAB 650MG DOSE (2X325MG) PO PRN (12:29)
[2024-01-13] MEDS ORDERED: methylPREDNISolone 40MG 1ML VIAL IV SCH (16:00)
[2024-01-13] MEDS: BENZONATATE 100MG CAPSULE PO SCH (16:10)
[2024-01-13] MEDS: SYMBICORT 160/4.5MCG INHALER 6GM INH SCH (19:48)
[2024-01-13] MEDS: MONTELUKAST 10 MG TAB PO SCH (20:13)
[2024-01-13] MEDS: rOPINIRole 2MG TAB PO SCH (20:13)
[2024-01-13] MEDS: guaiFENesin ER TABLET 600 MG TAB PO SCH (20:13)
[2024-01-13] MEDS: ASPIRIN 81MG ENTERIC TABLET PO SCH (20:13)
[2024-01-13] MEDS: ATORVASTATIN 20 MG TAB PO SCH (20:13)
[2024-01-13] MEDS: BACLOFEN 10 MG TAB PO SCH (20:13)
[2024-01-13] MEDS: MIRALAX *UNIT DOSE* 17GM PACKET PO PRN (23:47)
[2024-01-13] MEDS: DOCUSATE SODIUM 100MG CAPSULE PO PRN (23:47)
[2024-01-14] VITALS: BP 109/59; TEMP 98.1; O2SAT 94
[2024-01-14] MEDS ORDERED: SENNA 8.6 MG TAB (SENOKOT) PO ONE (00:35)
[2024-01-14 04:37] LABS: HEMATOCRIT 47.5 % (36.0-47.0); HEMOGLOBIN 15.5 g/dl (12.0-15.5); MEAN CORPUSCULAR HEMOGLOBIN 31.1 pg (27.0-33.0); MEAN CORPUSCULAR HGB CONC 32.6 g/dl (32.0-36.5); MEAN CORPUSCULAR VOLUME 95.4 fl (80.0-96.0); PLATELET COUNT, AUTOMATED 260 10^3/uL (150-450); RED BLOOD COUNT 4.98 10^6/uL (4.00-5.40); WHITE BLOOD COUNT 14.7 10^3/uL (4.0-10.0)
[2024-01-14 05:03] LABS: BLOOD UREA NITROGEN 26 MG/DL (9-23); CALCIUM LEVEL 9.1 MG/DL (8.3-10.6); CARBON DIOXIDE LEVEL 34 MMOL/L (20-31); CHLORIDE LEVEL 102 MMOL/L (98-107); CREATININE FOR GFR 0.65 MG/DL (0.55-1.30); GLOMERULAR FILTRATION RATE > 60.0 (>39); GLUCOSE, FASTING 182 MG/DL (74-106); POTASSIUM SERUM 4.4 MMOL/L (3.5-5.1); SODIUM LEVEL 141 MMOL/L (136-145)
[2024-01-14 05:27] VITALS: BP 135/68; TEMP 97.8; O2SAT 91
[2024-01-14 06:10] LABS: ABG BASE EXCESS 3.3 (-2.0-2.0); ABG HCO3 30.6 MMOL/L (22.0-26.0); ABG PARTIAL PRESSURE CO2 56.1 mmHg (35.0-45.0); ABG PARTIAL PRESSURE O2 77.1 mmHg (75.0-100.0); ABG STANDARD HCO3 27.4 MMOL/L. (22.0-26.0); ABG TOTAL CO2 32.3 MMOL/L (23.0-31.0); ABG pH (ARTERIAL) 7.354 UNITS (7.350-7.450)
[2024-01-14 08:00] VITALS: BP 125/62; TEMP 97.6; O2SAT 90
[2024-01-14] MEDS: MIRALAX *UNIT DOSE* 17GM PACKET PO SCH (09:13)
[2024-01-14] MEDS: BISACODYL 10MG SUPP PR ONE (09:14)
[2024-01-14] MEDS: AZITHROMYCIN 250MG TABLET PO SCH (09:16)
[2024-01-14 09:18] VITALS: BP 125/62
[2024-01-14] MEDS: SENOKOT S TAB PO SCH (09:21)
[2024-01-14 10:30] VITALS: BP 126/89
[2024-01-14] MEDS ORDERED: PRED10TA2 PO (12:47)
[2024-01-14] MEDS ORDERED: BENZ-18 PO (12:47)
[2024-01-14] MEDS ORDERED: AZIT-12 PO (12:47)
[2024-01-15 13:08] LABS: BODY FLUID CULTURE Not indicated. (.); ORGANISM ID Not indicated. (.); SPECIMEN SOURCE Urine (.); URINE STREP PNEUMONIAE ANTIGEN Negative (Negative)
== END 2024-01-14 14:19 | disposition home or self-care (01) | DRG 189 ==
LOC: M ED 23:07 → M ED INP 01-13 02:40 → M ICU 01-13 03:51
PROVIDERS: ADMIT Internal Medicine; ATTEND Student in an Organized Health Care Education/Training Program
DX: J96.21 Acute and chronic respiratory failure with hypoxia (principal); I50.32 Chronic diastolic (congestive) heart failure; E87.29 Other acidosis; J44.1 Chronic obstructive pulmonary disease with (acute) exacerbation; G47.33 Obstructive sleep apnea (adult) (pediatric); J96.22 Acute and chronic respiratory failure with hypercapnia; I73.9 Peripheral vascular disease, unspecified; G25.81 Restless legs syndrome; K21.9 Gastro-esophageal reflux disease without esophagitis; E03.9 Hypothyroidism, unspecified; K59.00 Constipation, unspecified; F17.210 Nicotine dependence, cigarettes, uncomplicated; D75.1 Secondary polycythemia; Z99.81 Dependence on supplemental oxygen; Z85.118 Personal history of other malignant neoplasm of bronchus and lung; Z79.82 Long term (current) use of aspirin; Z79.890 Hormone replacement therapy; Z79.899 Other long term (current) drug therapy

== ENCOUNTER → 2024-01-14 | Outpatient (CLI) | payer MEDICARE, OTHER ==
[~2024-01-14] MED LIST changes: +BENZ-18 PO; +FLUT1BLS8 INH; +IPRA0.00 INH; +ISOS1TAB35 PO; +MULT-40 PO; +NITR4TASL SL; +OCUVTAB4 PO
== END ==
LOC: M SOG 07:55
PROVIDERS: ATTEND Physician Assistant
DX: M54.50 Low back pain, unspecified (principal)

== ENCOUNTER 2024-04-17 16:22 | Inpatient (IN) | payer MEDICARE, OTHER ==
[~2024-04-17] VITALS: Ht 172.7 cm; Wt 92.8 kg
[2024-04-17] MEDS: IPRATROPIUM 0.5MG/ALBUTEROL 2.5MG INH SOL UD 3ML (DUONEB) NEB ONE ×2 (16:53→22:27)
[2024-04-17 17:00] LABS: BASO # 0.1 10^3/uL (0.0-0.2); BASO % 0.8 % (0.0-1.0); EOS # 0.1 10^3/uL (0.0-0.5); HEMATOCRIT 50.2 % (36.0-47.0); HEMOGLOBIN 15.7 g/dl (12.0-15.5); LYMPH # 0.7 10^3/uL (1.5-5.0); LYMPH % 6.4 % (24.0-44.0); MEAN CORPUSCULAR HEMOGLOBIN 30.8 pg (27.0-33.0); MEAN CORPUSCULAR HGB CONC 31.3 g/dl (32.0-36.5); MEAN CORPUSCULAR VOLUME 98.4 fl (80.0-96.0); MONO # 1.2 10^3/uL (0.0-0.8); MONO % 10.8 % (2.0-8.0); NEUTROPHILS % 80.8 % (36.0-66.0); PLATELET COUNT, AUTOMATED 200 10^3/uL (150-450); WHITE BLOOD COUNT 11.2 10^3/uL (4.0-10.0)
[2024-04-17 17:33] LABS: CK-MB VALUE MASS < 1.0 NG/ML (<3.6); LIPASE 24 U/L (12-53)
[2024-04-17 17:34] LABS: CPK CREATINE PHOSPHOKINASE 30 U/L (34-145); MB/CK RELATIVE INDEX 3.33 (< OR =4)
[2024-04-17 17:35] LABS: ALBUMIN 3.2 G/DL (3.2-5.2); ALKALINE PHOSPHATASE 103 U/L (46-116); ALT/SGPT 20 U/L (7.0-40); AST/SGOT 17 U/L (<34); BILIRUBIN,DIRECT 0.1 MG/DL (<0.4); BILIRUBIN,TOTAL 0.3 MG/DL (0.3-1.2); BLOOD UREA NITROGEN 14 MG/DL (9-23); CARBON DIOXIDE LEVEL 40 MMOL/L (20-31); CHLORIDE LEVEL 103 MMOL/L (98-107); CREATININE FOR GFR 0.77 MG/DL (0.55-1.30); GLOMERULAR FILTRATION RATE > 60.0 (>39); GLUCOSE, FASTING 101 MG/DL (74-106); POTASSIUM SERUM 4.7 MMOL/L (3.5-5.1); SODIUM LEVEL 143 MMOL/L (136-145); TOTAL PROTEIN 6.1 G/DL (5.7-8.2)
[2024-04-17] MEDS ORDERED: ISOVUE-370 76% 100ML VIAL As Ordered ONE (18:05)
[2024-04-17 18:27] LABS: CK-MB VALUE MASS < 1.0 NG/ML (<3.6)
[2024-04-17 18:30] LABS: CPK CREATINE PHOSPHOKINASE 33 U/L (34-145); MB/CK RELATIVE INDEX 3.03 (< OR =4)
[2024-04-17 20:58] LABS: CK-MB VALUE MASS < 1.0 NG/ML (<3.6)
[2024-04-17 20:59] LABS: CPK CREATINE PHOSPHOKINASE 31 U/L (34-145); MB/CK RELATIVE INDEX 3.22 (< OR =4)
[2024-04-17] MEDS: MORPHINE 4 MG/ML 1ML VIAL IV ONE (21:21)
[2024-04-17] MEDS ORDERED: HOME MED LIST COMPLETE! XX SCH (22:40)
[2024-04-17] MEDS: methylPREDNISolone 125MG 2ML VIAL IV ONE (22:52)
[2024-04-18] MEDS ORDERED: NITROGLYCERIN 0.4MG SUBL TABLET SL PRN (00:10)
[2024-04-18] MEDS: IPRATROPIUM 0.5MG/ALBUTEROL 2.5MG INH SOL UD 3ML (DUONEB) NEB SCH ×2 (00:49→17:49)
[2024-04-18] MEDS: ASPIRIN 81MG ENTERIC TABLET PO SCH (00:53)
[2024-04-18] MEDS: MONTELUKAST 10 MG TAB PO SCH (00:53)
[2024-04-18] MEDS: BACLOFEN 10 MG TAB PO SCH (00:54)
[2024-04-18] MEDS: ATORVASTATIN 20 MG TAB PO SCH (00:54)
[2024-04-18 01:06] LABS: VENOUS HCO3 39.7 MMOL/L (23.0-27.0); VENOUS O2 SATURATION 97.1 % (60.0-80.0); VENOUS PARTIAL PRESSURE CO2 92.5 mmHg (38.0-50.0); VENOUS PH 7.251 UNITS (7.330-7.430); VENOUS STANDARD HCO3 31.8 MMOL/L; VENOUS TOTAL CO2 42.6 MMOL/L (24.0-28.0)
[2024-04-18 01:21] VITALS: BP 146/83; TEMP 98.2; O2SAT 89
[2024-04-18] MEDS: AZITHROMYCIN INJ 500 MG, VIAL MATE ADAPTER 1 EACH in NS 250 ML IV SCH (02:11)
[2024-04-18] MEDS: MEMANTINE 5MG TABLET (NAMENDA) PO SCH (02:22)
[2024-04-18] MEDS: rOPINIRole 2MG TAB PO SCH (02:55)
[2024-04-18] MEDS: cefTRIAXone SOD 1 GM in D5W MINI-BAG PLUS 50 ML IV SCH (03:38)
[2024-04-18] MEDS: LR 1,000 ML IV SCH (04:12)
[2024-04-18 04:13] VITALS: BP 102/62; TEMP 98.1; O2SAT 94
[2024-04-18] MEDS: LEVOTHYROXINE 125MCG TABLET (0.125MG) PO SCH (05:10)
[2024-04-18 06:53] LABS: HEMATOCRIT 49.6 % (36.0-47.0); HEMOGLOBIN 15.2 g/dl (12.0-15.5); MEAN CORPUSCULAR HEMOGLOBIN 30.6 pg (27.0-33.0); MEAN CORPUSCULAR HGB CONC 30.6 g/dl (32.0-36.5); PLATELET COUNT, AUTOMATED 198 10^3/uL (150-450); RED BLOOD COUNT 4.96 10^6/uL (4.00-5.40); WHITE BLOOD COUNT 8.6 10^3/uL (4.0-10.0)
[2024-04-18 07:12] LABS: BLOOD UREA NITROGEN 16 MG/DL (9-23); CALCIUM LEVEL 8.9 MG/DL (8.3-10.6); CARBON DIOXIDE LEVEL 38 MMOL/L (20-31); CHLORIDE LEVEL 100 MMOL/L (98-107); CREATININE FOR GFR 0.76 MG/DL (0.55-1.30); GLOMERULAR FILTRATION RATE > 60.0 (>39); GLUCOSE, FASTING 170 MG/DL (74-106); POTASSIUM SERUM 4.8 MMOL/L (3.5-5.1); SODIUM LEVEL 140 MMOL/L (136-145)
[2024-04-18] MEDS: ADVAIR HFA 115/21MCG INHALER INH SCH (07:31)
[2024-04-18 07:44] LABS: ABG BASE EXCESS 6.4 (-2.0-2.0); ABG HCO3 37.9 MMOL/L (22.0-26.0); ABG O2 SATURATION 94.1 % (95.0-99.0); ABG PARTIAL PRESSURE O2 73.3 mmHg (75.0-100.0); ABG STANDARD HCO3 30.2 MMOL/L. (22.0-26.0); ABG TOTAL CO2 40.7 MMOL/L (23.0-31.0)
[2024-04-18 07:47] LABS: ABG PARTIAL PRESSURE CO2 89.1 mmHg (35.0-45.0); ABG pH (ARTERIAL) 7.247 UNITS (7.350-7.450)
[2024-04-18] MEDS: DOCUSATE SODIUM 100MG CAPSULE PO SCH (09:03)
[2024-04-18] MEDS: OMEPRAZOLE 20MG CAP PO SCH (09:03)
[2024-04-18] MEDS: FUROSEMIDE 20 MG TAB PO SCH (09:04)
[2024-04-18] MEDS: NICOTINE 21MG/24HR 1 EA TRANSDERMAL TD SCH (09:05)
[2024-04-18] MEDS: oxyBUTYnin *DITROPAN XL* 5 MG TABCR PO SCH (10:08)
[2024-04-18 11:52] LABS: PROCALCITONIN <0.04 ng/ml
[2024-04-18 12:00] VITALS: BP 106/62; TEMP 98.1; O2SAT 91
[2024-04-18] MEDS: MORPHINE 4 MG/ML 1ML VIAL IV PRN (12:14)
[2024-04-18] MEDS: methylPREDNISolone 125MG 2ML VIAL IV SCH (14:14)
[2024-04-18] MEDS: AZITHROMYCIN 250MG TABLET PO SCH (19:45)
[2024-04-18] MEDS: BUDESONIDE 0.5 MG/2 ML INHALATION SUSPENSION NEB SCH (20:39)
[2024-04-18 21:06] VITALS: BP 131/72; TEMP 98.4; O2SAT 88
[2024-04-19 04:56] VITALS: BP 138/75; TEMP 98.1; O2SAT 89
[2024-04-19] MEDS ORDERED: methylPREDNISolone 125MG 2ML VIAL IV SCH (06:00)
[2024-04-19 07:30] LABS: BASO % 0.1 % (0.0-1.0); EOS % 0.3 % (0.0-3.0); HEMATOCRIT 46.5 % (36.0-47.0); HEMOGLOBIN 14.4 g/dl (12.0-15.5); LYMPH # 0.8 10^3/uL (1.5-5.0); LYMPH % 7.6 % (24.0-44.0); MEAN CORPUSCULAR HEMOGLOBIN 29.8 pg (27.0-33.0); MEAN CORPUSCULAR VOLUME 96.3 fl (80.0-96.0); MONO % 10.2 % (2.0-8.0); NEUTROPHILS # 8.3 10^3/uL (1.5-8.5); NEUTROPHILS % 81.4 % (36.0-66.0); PLATELET COUNT, AUTOMATED 184 10^3/uL (150-450); RED BLOOD COUNT 4.83 10^6/uL (4.00-5.40); WHITE BLOOD COUNT 10.2 10^3/uL (4.0-10.0)
[2024-04-19 07:59] LABS: BLOOD UREA NITROGEN 22 MG/DL (9-23); CALCIUM LEVEL 9.6 MG/DL (8.3-10.6); CARBON DIOXIDE LEVEL > 40.0 MMOL/L (20-31); CHLORIDE LEVEL 103 MMOL/L (98-107); CREATININE FOR GFR 0.62 MG/DL (0.55-1.30); GLOMERULAR FILTRATION RATE > 60.0 (>39); GLUCOSE, FASTING 95 MG/DL (74-106); POTASSIUM SERUM 4.4 MMOL/L (3.5-5.1); SODIUM LEVEL 143 MMOL/L (136-145)
[2024-04-19] MEDS: guaiFENesin ER TABLET 600 MG TAB PO SCH (09:18)
[2024-04-19 09:47] LABS: ABG BASE EXCESS 8.3 (-2.0-2.0); ABG HCO3 37.3 MMOL/L (22.0-26.0); ABG O2 SATURATION 91.3 % (95.0-99.0); ABG PARTIAL PRESSURE O2 58.6 mmHg (75.0-100.0); ABG STANDARD HCO3 31.9 MMOL/L. (22.0-26.0); ABG TOTAL CO2 39.5 MMOL/L (23.0-31.0); ABG pH (ARTERIAL) 7.336 UNITS (7.350-7.450)
[2024-04-19 09:52] LABS: ABG PARTIAL PRESSURE CO2 71.4 mmHg (35.0-45.0)
[2024-04-19] MEDS ORDERED: NICOTINE POLACRILEX 2 MG GUM PO PRN (11:15)
[2024-04-19 12:00] VITALS: BP 125/61; TEMP 97.5; O2SAT 94
[2024-04-19] MEDS: SODIUM CHLORIDE HYPERTONIC 3% 4ML NEB SOL INH SCH (14:51)
[2024-04-19 21:12] VITALS: BP 136/69; TEMP 97.5; O2SAT 95
[2024-04-19] MEDS: MOM 30ML SUSPENSION UDC PO PRN (21:17)
[2024-04-20 04:00] VITALS: BP 134/75; TEMP 97.7; O2SAT 94
[2024-04-20 06:03] LABS: VENOUS BASE EXCESS 9.7 (-2.0-2.0); VENOUS O2 SATURATION 95.2 % (60.0-80.0); VENOUS PARTIAL PRESSURE CO2 73.8 mmHg (38.0-50.0); VENOUS PARTIAL PRESSURE O2 73.6 mmHg (30.0-50.0); VENOUS PH 7.341 UNITS (7.330-7.430); VENOUS STANDARD HCO3 33.5 MMOL/L; VENOUS TOTAL CO2 41.3 MMOL/L (24.0-28.0)
[2024-04-20 06:13] LABS: BASO % 0.4 % (0.0-1.0); EOS # 0.1 10^3/uL (0.0-0.5); EOS % 1.2 % (0.0-3.0); HEMATOCRIT 47.5 % (36.0-47.0); HEMOGLOBIN 14.5 g/dl (12.0-15.5); LYMPH % 9.8 % (24.0-44.0); MEAN CORPUSCULAR HEMOGLOBIN 29.8 pg (27.0-33.0); MEAN CORPUSCULAR HGB CONC 30.5 g/dl (32.0-36.5); MEAN CORPUSCULAR VOLUME 97.5 fl (80.0-96.0); MONO # 1.2 10^3/uL (0.0-0.8); MONO % 11.4 % (2.0-8.0); NEUTROPHILS # 7.8 10^3/uL (1.5-8.5); NEUTROPHILS % 76.8 % (36.0-66.0); PLATELET COUNT, AUTOMATED 184 10^3/uL (150-450); RED BLOOD COUNT 4.87 10^6/uL (4.00-5.40); WHITE BLOOD COUNT 10.1 10^3/uL (4.0-10.0)
[2024-04-20 06:53] LABS: ALBUMIN 2.9 G/DL (3.2-5.2); ALKALINE PHOSPHATASE 82 U/L (46-116); ALT/SGPT 23 U/L (7.0-40); AST/SGOT 14 U/L (<34); BILIRUBIN,TOTAL 0.3 MG/DL (0.3-1.2); BLOOD UREA NITROGEN 23 MG/DL (9-23); CALCIUM LEVEL 9.5 MG/DL (8.3-10.6); CARBON DIOXIDE LEVEL > 40.0 MMOL/L (20-31); CHLORIDE LEVEL 102 MMOL/L (98-107); CREATININE FOR GFR 0.65 MG/DL (0.55-1.30); GLOMERULAR FILTRATION RATE > 60.0 (>39); GLUCOSE, FASTING 87 MG/DL (74-106); MAGNESIUM LEVEL 1.7 MG/DL (1.8-2.4); POTASSIUM SERUM 4.3 MMOL/L (3.5-5.1); SODIUM LEVEL 144 MMOL/L (136-145); TOTAL PROTEIN 5.5 G/DL (5.7-8.2)
[2024-04-20] MEDS: IPRATROPIUM 0.5MG/ALBUTEROL 2.5MG INH SOL UD 3ML (DUONEB) NEB PRN (07:23)
[2024-04-20] MEDS: FORMOTEROL FUMARATE 20 MCG/2 ML INHALATION SOLUTION (PERFOROMIST) INH SCH (08:00)
[2024-04-20 09:30] VITALS: BP 129/62; TEMP 98.3; O2SAT 92
[2024-04-20 12:00] VITALS: BP 153/76; TEMP 97.6; O2SAT 95
[2024-04-20] MEDS: ACETAMINOPHEN TAB 650MG DOSE (2X325MG) PO PRN (12:05)
[2024-04-20] MEDS: MORPHINE 2 MG/ML 1ML VIAL IV PRN (12:41)
[2024-04-20] MEDS: ENOXAPARIN 40MG/0.4ML SYRINGE (J1650 PER 10MG) SC SCH (13:09)
[2024-04-20] MEDS: MAG SULF 1GM/100ML (MAG RUN) 1 GM in IV 1 EA IV SCH (14:05)
[2024-04-20] MEDS: MORPHINE 2 MG/ML 1ML VIAL IV ONE (14:13)
[2024-04-20] MEDS: oxyCODONE 5MG TAB PO PRN (15:47)
[2024-04-20 16:00] VITALS: BP 126/76; TEMP 97.5; O2SAT 97
[2024-04-20] MEDS: MORPHINE 4 MG/ML 1ML VIAL IV PRN (18:20)
[2024-04-20 20:00] VITALS: BP 142/69; TEMP 97.2; O2SAT 92
[2024-04-21] VITALS (15 sets, daily range): BP systolic 123–139; BP diastolic 59–71; TEMP 97.4–98.3; O2SAT 85–97
[2024-04-21] MEDS ORDERED: PERMETHRIN 5% CREAM 60 GM TOP SCH
[2024-04-21 05:11] LABS: BASO # 0.1 10^3/uL (0.0-0.2); BASO % 0.4 % (0.0-1.0); EOS # 0.1 10^3/uL (0.0-0.5); EOS % 0.5 % (0.0-3.0); HEMATOCRIT 46.5 % (36.0-47.0); HEMOGLOBIN 14.3 g/dl (12.0-15.5); LYMPH # 0.6 10^3/uL (1.5-5.0); LYMPH % 5.2 % (24.0-44.0); MEAN CORPUSCULAR HEMOGLOBIN 30.2 pg (27.0-33.0); MEAN CORPUSCULAR HGB CONC 30.8 g/dl (32.0-36.5); MEAN CORPUSCULAR VOLUME 98.3 fl (80.0-96.0); MONO # 1.3 10^3/uL (0.0-0.8); MONO % 10.8 % (2.0-8.0); NEUTROPHILS # 9.7 10^3/uL (1.5-8.5); NEUTROPHILS % 82.8 % (36.0-66.0); PLATELET COUNT, AUTOMATED 184 10^3/uL (150-450); RED BLOOD COUNT 4.73 10^6/uL (4.00-5.40); WHITE BLOOD COUNT 11.7 10^3/uL (4.0-10.0)
[2024-04-21 05:37] LABS: BLOOD UREA NITROGEN 25 MG/DL (9-23); CALCIUM LEVEL 8.8 MG/DL (8.3-10.6); CARBON DIOXIDE LEVEL > 40.0 MMOL/L (20-31); CHLORIDE LEVEL 99 MMOL/L (98-107); CREATININE FOR GFR 0.97 MG/DL (0.55-1.30); GLOMERULAR FILTRATION RATE 59.4 (>39); GLUCOSE, FASTING 102 MG/DL (74-106); POTASSIUM SERUM 4.5 MMOL/L (3.5-5.1); SODIUM LEVEL 138 MMOL/L (136-145)
[2024-04-21 07:52] LABS: ABG BASE EXCESS 11.9 (-2.0-2.0); ABG HCO3 40.4 MMOL/L (22.0-26.0); ABG PARTIAL PRESSURE O2 70.5 mmHg (75.0-100.0); ABG STANDARD HCO3 35.6 MMOL/L. (22.0-26.0); ABG TOTAL CO2 42.5 MMOL/L (23.0-31.0); ABG pH (ARTERIAL) 7.385 UNITS (7.350-7.450)
[2024-04-21 07:54] LABS: ABG PARTIAL PRESSURE CO2 69.1 mmHg (35.0-45.0)
[2024-04-21] MEDS: predniSONE 20 MG TAB PO SCH (09:19)
[2024-04-21] MEDS: SENNA 8.6 MG TAB (SENOKOT) PO PRN (13:47)
[2024-04-21] MEDS ORDERED: PERMETHRIN 5% CREAM 60 GM TOP ONE (18:00)
[2024-04-21] MEDS: CEFDINIR 300 MG CAP (OMNICEF) PO SCH (21:07)
[2024-04-21] MEDS: MIRALAX *UNIT DOSE* 17GM PACKET PO PRN (21:12)
[2024-04-21] MEDS: ASPIRIN 81MG CHEW TABLET PO SCH (21:12)
[2024-04-21] MEDS: PERMETHRIN 5% CREAM 60 GM TOP ONE (21:14)
[2024-04-22] VITALS (9 sets, daily range): BP systolic 119–123; BP diastolic 68–69; TEMP 97.7–97.9; O2SAT 87–95
[2024-04-22 08:07] LABS: BASO % 0.3 % (0.0-1.0); EOS # 0.1 10^3/uL (0.0-0.5); EOS % 1.4 % (0.0-3.0); HEMATOCRIT 47.2 % (36.0-47.0); HEMOGLOBIN 14.6 g/dl (12.0-15.5); LYMPH % 11.6 % (24.0-44.0); MEAN CORPUSCULAR HGB CONC 30.9 g/dl (32.0-36.5); MEAN CORPUSCULAR VOLUME 97.1 fl (80.0-96.0); MONO # 1.1 10^3/uL (0.0-0.8); MONO % 12.7 % (2.0-8.0); NEUTROPHILS # 6.3 10^3/uL (1.5-8.5); NEUTROPHILS % 73.8 % (36.0-66.0); PLATELET COUNT, AUTOMATED 193 10^3/uL (150-450); RED BLOOD COUNT 4.86 10^6/uL (4.00-5.40); WHITE BLOOD COUNT 8.6 10^3/uL (4.0-10.0)
[2024-04-22 08:39] LABS: BLOOD UREA NITROGEN 25 MG/DL (9-23); CALCIUM LEVEL 9.5 MG/DL (8.3-10.6); CHLORIDE LEVEL 102 MMOL/L (98-107); CREATININE FOR GFR 0.77 MG/DL (0.55-1.30); GLOMERULAR FILTRATION RATE > 60.0 (>39); GLUCOSE, FASTING 80 MG/DL (74-106); MAGNESIUM LEVEL 2.1 MG/DL (1.8-2.4); POTASSIUM SERUM 4.4 MMOL/L (3.5-5.1); SODIUM LEVEL 143 MMOL/L (136-145)
[2024-04-22 08:40] LABS: CARBON DIOXIDE LEVEL > 40.0 MMOL/L (20-31)
[2024-04-22] MEDS: BISACODYL 10MG SUPP PR ONE (11:30)
[2024-04-22 23:07] LABS: URINE STREP PNEUMONIAE ANTIGEN NOT DETECTED (NOT DETECT)
[2024-04-23 04:05] VITALS: BP 120/66; TEMP 97.7; O2SAT 93
[2024-04-23 05:45] LABS: HEMATOCRIT 45.8 % (36.0-47.0); HEMOGLOBIN 14.1 g/dl (12.0-15.5); MEAN CORPUSCULAR HEMOGLOBIN 30.1 pg (27.0-33.0); MEAN CORPUSCULAR HGB CONC 30.8 g/dl (32.0-36.5); MEAN CORPUSCULAR VOLUME 97.7 fl (80.0-96.0); PLATELET COUNT, AUTOMATED 183 10^3/uL (150-450); RED BLOOD COUNT 4.69 10^6/uL (4.00-5.40); WHITE BLOOD COUNT 10.6 10^3/uL (4.0-10.0)
[2024-04-23] MEDS ORDERED: CEFD300CAP PO (10:05)
[2024-04-23] MEDS ORDERED: AZIT-12 PO (10:05)
[2024-04-23] MEDS ORDERED: MUCI600T31 PO (10:05)
[2024-04-23] MEDS ORDERED: PRED10TA2 PO (10:05)
[2024-04-23] MEDS ORDERED: NICO21PAT TD (10:05)
[2024-04-23] MEDS ORDERED: YUPE175S IN (12:08)
[2024-04-23] MEDS ORDERED: BROV15NE NEB (12:08)
[2024-04-23] MEDS ORDERED: BUDE0.5S6 NEB (12:08)
[2024-04-23] MEDS: FLUBLOK(EGGFREE) TRIVAL(24-25) VACCINE PF 0.5ML SYRINGE 18YRS & OLDER IM.IMMUN ONE (12:49)
== END 2024-04-23 13:01 | disposition home health service (06) | DRG 693 ==
LOC: EDSEX 16:22 → EDBD 16:22 → M ED 16:22 → M ED INP 04-18 00:22 → M MS5PR 04-18 01:24 → M ICU 04-20 09:05 → M MSPAV 04-21 16:18
PROVIDERS: ADMIT Student in an Organized Health Care Education/Training Program; ATTEND Internal Medicine
DX: N20.1 Calculus of ureter (principal); J96.21 Acute and chronic respiratory failure with hypoxia; J96.22 Acute and chronic respiratory failure with hypercapnia; J98.11 Atelectasis; J84.114 Acute interstitial pneumonitis; J44.1 Chronic obstructive pulmonary disease with (acute) exacerbation; N39.0 Urinary tract infection, site not specified; K76.6 Portal hypertension; E03.9 Hypothyroidism, unspecified; G43.909 Migraine, unspecified, not intractable, without status migrainosus; I10 Essential (primary) hypertension; G47.33 Obstructive sleep apnea (adult) (pediatric); K21.9 Gastro-esophageal reflux disease without esophagitis; K59.00 Constipation, unspecified; J30.9 Allergic rhinitis, unspecified; G47.62 Sleep related leg cramps; F17.200 Nicotine dependence, unspecified, uncomplicated; J43.9 Emphysema, unspecified; I27.20 Pulmonary hypertension, unspecified; R13.10 Dysphagia, unspecified; K74.60 Unspecified cirrhosis of liver; F03.90 Unspecified dementia, unspecified severity, without behavioral disturbance, psychotic disturbance, mood disturbance, and anxiety; E78.5 Hyperlipidemia, unspecified; M62.838 Other muscle spasm; N32.81 Overactive bladder; G89.29 Other chronic pain; R07.9 Chest pain, unspecified; Z79.82 Long term (current) use of aspirin; Z79.890 Hormone replacement therapy; Z85.118 Personal history of other malignant neoplasm of bronchus and lung; Z79.899 Other long term (current) drug therapy

== ENCOUNTER 2024-05-28 20:51 | Inpatient (IN) | payer MEDICARE, OTHER ==
[~2024-05-28] VITALS: Ht 172.7 cm; Wt 81.0 kg
[~2024-05-28 20:51] MED LIST changes: +BROV15NE NEB; +BUDE0.5S6 NEB; +CEFD300CAP PO; +MUCI600T31 PO; +NICO21PAT TD; +YUPE175S IN
[2024-05-28] MEDS: rOPINIRole 2MG TAB PO SCH (21:00)
[2024-05-28 21:16] LABS: VENOUS BASE EXCESS 12.9 (-2.0-2.0); VENOUS HCO3 45.2 MMOL/L (23.0-27.0); VENOUS O2 SATURATION 94.5 % (60.0-80.0); VENOUS PARTIAL PRESSURE O2 74.3 mmHg (30.0-50.0); VENOUS PH 7.291 UNITS (7.330-7.430); VENOUS STANDARD HCO3 36.7 MMOL/L; VENOUS TOTAL CO2 48.2 MMOL/L (24.0-28.0)
[2024-05-28 21:21] LABS: BASO # 0.1 10^3/uL (0.0-0.2); BASO % 0.5 % (0.0-1.0); EOS % 0.2 % (0.0-3.0); HEMATOCRIT 50.5 % (36.0-47.0); HEMOGLOBIN 15.9 g/dl (12.0-15.5); LYMPH # 0.9 10^3/uL (1.5-5.0); LYMPH % 9.6 % (24.0-44.0); MEAN CORPUSCULAR HEMOGLOBIN 30.5 pg (27.0-33.0); MEAN CORPUSCULAR HGB CONC 31.5 g/dl (32.0-36.5); MEAN CORPUSCULAR VOLUME 96.7 fl (80.0-96.0); MONO # 0.8 10^3/uL (0.0-0.8); MONO % 8.6 % (2.0-8.0); NEUTROPHILS # 7.4 10^3/uL (1.5-8.5); NEUTROPHILS % 80.9 % (36.0-66.0); PLATELET COUNT, AUTOMATED 263 10^3/uL (150-450); RED BLOOD COUNT 5.22 10^6/uL (4.00-5.40); WHITE BLOOD COUNT 9.2 10^3/uL (4.0-10.0)
[2024-05-28] MEDS ORDERED: IPRATROPIUM 0.5MG/ALBUTEROL 2.5MG INH SOL UD 3ML (DUONEB) NEB PRN (21:30)
[2024-05-28 21:48] LABS: CK-MB VALUE MASS 1.8 NG/ML (<3.6)
[2024-05-28 21:50] LABS: CPK CREATINE PHOSPHOKINASE 37 U/L (34-145); MB/CK RELATIVE INDEX 4.86 (< OR =4)
[2024-05-28 21:53] LABS: ABG BASE EXCESS 8.2 (-2.0-2.0); ABG HCO3 39.7 MMOL/L (22.0-26.0); ABG O2 SATURATION 98.4 % (95.0-99.0); ABG PARTIAL PRESSURE CO2 90.2 mmHg (35.0-45.0); ABG PARTIAL PRESSURE O2 134.9 mmHg (75.0-100.0); ABG TOTAL CO2 42.4 MMOL/L (23.0-31.0); ABG pH (ARTERIAL) 7.261 UNITS (7.350-7.450)
[2024-05-28 21:56] LABS: ALKALINE PHOSPHATASE 105 U/L (46-116); ALT/SGPT 15 U/L (7.0-40); AST/SGOT 15 U/L (<34); BILIRUBIN,DIRECT < 0.1 MG/DL (<0.4); BILIRUBIN,TOTAL 0.3 MG/DL (0.3-1.2); BLOOD UREA NITROGEN 17 MG/DL (9-23); CALCIUM LEVEL 9.4 MG/DL (8.3-10.6); CARBON DIOXIDE LEVEL > 40.0 MMOL/L (20-31); CHLORIDE LEVEL 101 MMOL/L (98-107); CREATININE FOR GFR 0.69 MG/DL (0.55-1.30); GLOMERULAR FILTRATION RATE > 60.0 (>39); GLUCOSE, FASTING 178 MG/DL (74-106); POTASSIUM SERUM 4.1 MMOL/L (3.5-5.1); SODIUM LEVEL 144 MMOL/L (136-145)
[2024-05-28] MEDS ORDERED: ISOVUE-370 76% 100ML VIAL As Ordered ONE (22:11)
[2024-05-28 22:54] LABS: CK-MB VALUE MASS 1.7 NG/ML (<3.6)
[2024-05-28 22:57] LABS: MB/CK RELATIVE INDEX 4.59 (< OR =4)
[2024-05-29] VITALS (10 sets, daily range): BP systolic 108–132; BP diastolic 65–72; TEMP 97.3–98; O2SAT 81–96
[2024-05-29 00:26] LABS: ABG BASE EXCESS 9.9 (-2.0-2.0); ABG HCO3 41.6 MMOL/L (22.0-26.0); ABG O2 SATURATION 96.4 % (95.0-99.0); ABG PARTIAL PRESSURE O2 87.2 mmHg (75.0-100.0); ABG STANDARD HCO3 33.7 MMOL/L. (22.0-26.0); ABG TOTAL CO2 44.4 MMOL/L (23.0-31.0); ABG pH (ARTERIAL) 7.282 UNITS (7.350-7.450)
[2024-05-29 00:30] LABS: ABG PARTIAL PRESSURE CO2 90.2 mmHg (35.0-45.0)
[2024-05-29] MEDS ORDERED: MED REC IN PROGRESS XX SCH (00:30)
[2024-05-29] MEDS ORDERED: ALBUTEROL 90 MCG/ACT 8GM HFA INHALER INH PRN (02:35)
[2024-05-29] MEDS ORDERED: ARFO15VI18 INH (02:41)
[2024-05-29] MEDS ORDERED: YUPE175S INH (02:41)
[2024-05-29] MEDS ORDERED: HOME MED LIST COMPLETE! XX SCH (02:45)
[2024-05-29 02:46] LABS: ABG BASE EXCESS 6.1 (-2.0-2.0); ABG HCO3 36.6 MMOL/L (22.0-26.0); ABG O2 SATURATION 97.8 % (95.0-99.0); ABG PARTIAL PRESSURE O2 110.6 mmHg (75.0-100.0); ABG TOTAL CO2 39.1 MMOL/L (23.0-31.0); ABG pH (ARTERIAL) 7.275 UNITS (7.350-7.450)
[2024-05-29 02:50] LABS: ABG PARTIAL PRESSURE CO2 80.6 mmHg (35.0-45.0)
[2024-05-29] MEDS: IPRATROPIUM 0.5MG/ALBUTEROL 2.5MG INH SOL UD 3ML (DUONEB) NEB SCH (03:01)
[2024-05-29] MEDS: AZITHROMYCIN INJ 500 MG, VIAL MATE ADAPTER 1 EACH in NS 250 ML IV ONE (03:02)
[2024-05-29] MEDS: methylPREDNISolone 125MG 2ML VIAL IV ONE (03:02)
[2024-05-29 05:07] LABS: HEMATOCRIT 49.7 % (36.0-47.0); HEMOGLOBIN 15.5 g/dl (12.0-15.5); MEAN CORPUSCULAR HEMOGLOBIN 30.4 pg (27.0-33.0); MEAN CORPUSCULAR HGB CONC 31.2 g/dl (32.0-36.5); MEAN CORPUSCULAR VOLUME 97.5 fl (80.0-96.0); PLATELET COUNT, AUTOMATED 220 10^3/uL (150-450); WHITE BLOOD COUNT 5.8 10^3/uL (4.0-10.0)
[2024-05-29 05:37] LABS: BLOOD UREA NITROGEN 21 MG/DL (9-23); CALCIUM LEVEL 9.1 MG/DL (8.3-10.6); CARBON DIOXIDE LEVEL > 40.0 MMOL/L (20-31); CHLORIDE LEVEL 100 MMOL/L (98-107); CREATININE FOR GFR 0.83 MG/DL (0.55-1.30); GLOMERULAR FILTRATION RATE > 60.0 (>39); GLUCOSE, FASTING 164 MG/DL (74-106); MAGNESIUM LEVEL 1.4 MG/DL (1.8-2.4); SODIUM LEVEL 144 MMOL/L (136-145)
[2024-05-29] MEDS: MAG SULF 1GM/100ML (MAG RUN) 1 GM in IV 1 EA IV SCH (05:56)
[2024-05-29] MEDS: LEVOTHYROXINE 125MCG TABLET (0.125MG) PO SCH (06:02)
[2024-05-29] MEDS: oxyBUTYnin *DITROPAN XL* 5 MG TABCR PO SCH (08:44)
[2024-05-29] MEDS: ASPIRIN 81MG CHEW TABLET PO SCH (08:44)
[2024-05-29] MEDS: PANTOPRAZOLE 40MG VIAL IV SCH (08:44)
[2024-05-29] MEDS: NICOTINE 21MG/24HR 1 EA TRANSDERMAL TD SCH (08:45)
[2024-05-29] MEDS: GLYCOPYRROLATE INJ 0.2 MG/ML 2 ML VIAL NEB SCH (10:32)
[2024-05-29] MEDS: FORMOTEROL FUMARATE 20 MCG/2 ML INHALATION SOLUTION (PERFOROMIST) INH SCH (10:32)
[2024-05-29] MEDS ORDERED: CEPACOL LOZENGE PO PRN (10:40)
[2024-05-29] MEDS ORDERED: methylPREDNISolone 125MG 2ML VIAL IV SCH (11:00)
[2024-05-29] MEDS: methylPREDNISolone 125MG 2ML VIAL IV SCH (11:38)
[2024-05-29] MEDS: CHLORASEPTIC SPRAY MT PRN (12:50)
[2024-05-29] MEDS: HEPARIN SOD (PORCINE) 5000UNITS/ML 1ML VIAL/SYRINGE SQ SCH (13:55)
[2024-05-29] MEDS: MONTELUKAST 10 MG TAB PO SCH (21:03)
[2024-05-29] MEDS: ATORVASTATIN 20 MG TAB PO SCH (21:03)
[2024-05-30] VITALS (9 sets, daily range): BP systolic 104–128; BP diastolic 58–70; TEMP 97–98.5; O2SAT 92–96
[2024-05-30 05:22] LABS: HEMATOCRIT 45.5 % (36.0-47.0); HEMOGLOBIN 14.4 g/dl (12.0-15.5); MEAN CORPUSCULAR HEMOGLOBIN 30.6 pg (27.0-33.0); MEAN CORPUSCULAR HGB CONC 31.6 g/dl (32.0-36.5); MEAN CORPUSCULAR VOLUME 96.6 fl (80.0-96.0); PLATELET COUNT, AUTOMATED 223 10^3/uL (150-450); RED BLOOD COUNT 4.71 10^6/uL (4.00-5.40)
[2024-05-30] MEDS: AZITHROMYCIN 250MG TABLET PO SCH (05:54)
[2024-05-30 05:56] LABS: BLOOD UREA NITROGEN 23 MG/DL (9-23); CALCIUM LEVEL 9.5 MG/DL (8.3-10.6); CARBON DIOXIDE LEVEL > 40.0 MMOL/L (20-31); CHLORIDE LEVEL 100 MMOL/L (98-107); CREATININE FOR GFR 0.73 MG/DL (0.55-1.30); GLOMERULAR FILTRATION RATE > 60.0 (>39); GLUCOSE, FASTING 128 MG/DL (74-106); MAGNESIUM LEVEL 1.8 MG/DL (1.8-2.4); POTASSIUM SERUM 4.2 MMOL/L (3.5-5.1); SODIUM LEVEL 144 MMOL/L (136-145)
[2024-05-30] MEDS ORDERED: AZITHROMYCIN 250MG TABLET PO SCH (06:00)
[2024-05-30] MEDS: methylPREDNISolone 40MG 1ML VIAL IV SCH (18:13)
[2024-05-31 03:56] VITALS: BP 128/74; TEMP 97.7; O2SAT 93
[2024-05-31 06:25] LABS: HEMATOCRIT 47.8 % (36.0-47.0); HEMOGLOBIN 14.8 g/dl (12.0-15.5); MEAN CORPUSCULAR HEMOGLOBIN 30.4 pg (27.0-33.0); MEAN CORPUSCULAR VOLUME 98.2 fl (80.0-96.0); PLATELET COUNT, AUTOMATED 271 10^3/uL (150-450); RED BLOOD COUNT 4.87 10^6/uL (4.00-5.40)
[2024-05-31 06:52] LABS: BLOOD UREA NITROGEN 25 MG/DL (9-23); CALCIUM LEVEL 9.3 MG/DL (8.3-10.6); CARBON DIOXIDE LEVEL > 40.0 MMOL/L (20-31); CHLORIDE LEVEL 97 MMOL/L (98-107); CREATININE FOR GFR 0.72 MG/DL (0.55-1.30); GLOMERULAR FILTRATION RATE > 60.0 (>39); GLUCOSE, FASTING 110 MG/DL (74-106); MAGNESIUM LEVEL 1.8 MG/DL (1.8-2.4); POTASSIUM SERUM 4.4 MMOL/L (3.5-5.1); SODIUM LEVEL 147 MMOL/L (136-145)
[2024-05-31 12:00] VITALS: BP 131/78; TEMP 97.7; O2SAT 94
[2024-05-31 20:57] VITALS: BP 118/77; TEMP 97.7; O2SAT 94
[2024-06-01 04:00] VITALS: BP 117/78; TEMP 97.5; O2SAT 92
[2024-06-01 06:35] LABS: BASO % 0.1 % (0.0-1.0); HEMATOCRIT 46.6 % (36.0-47.0); HEMOGLOBIN 14.4 g/dl (12.0-15.5); LYMPH # 0.4 10^3/uL (1.5-5.0); LYMPH % 4.4 % (24.0-44.0); MEAN CORPUSCULAR HEMOGLOBIN 30.4 pg (27.0-33.0); MEAN CORPUSCULAR HGB CONC 30.9 g/dl (32.0-36.5); MEAN CORPUSCULAR VOLUME 98.5 fl (80.0-96.0); MONO # 0.7 10^3/uL (0.0-0.8); MONO % 7.6 % (2.0-8.0); NEUTROPHILS # 8.2 10^3/uL (1.5-8.5); NEUTROPHILS % 87.6 % (36.0-66.0); PLATELET COUNT, AUTOMATED 235 10^3/uL (150-450); RED BLOOD COUNT 4.73 10^6/uL (4.00-5.40); WHITE BLOOD COUNT 9.3 10^3/uL (4.0-10.0)
[2024-06-01 07:03] LABS: C REACTIVE PROTEIN QUANTITATIV < 0.40 MG/DL (<1.0)
[2024-06-01 07:19] LABS: PROCALCITONIN <0.04 ng/ml
[2024-06-01 07:38] LABS: BLOOD UREA NITROGEN 27 MG/DL (9-23); CALCIUM LEVEL 9.1 MG/DL (8.3-10.6); CARBON DIOXIDE LEVEL > 40.0 MMOL/L (20-31); CHLORIDE LEVEL 100 MMOL/L (98-107); CREATININE FOR GFR 0.72 MG/DL (0.55-1.30); GLOMERULAR FILTRATION RATE > 60.0 (>39); GLUCOSE, FASTING 94 MG/DL (74-106); MAGNESIUM LEVEL 1.7 MG/DL (1.8-2.4); POTASSIUM SERUM 4.4 MMOL/L (3.5-5.1); SODIUM LEVEL 142 MMOL/L (136-145)
[2024-06-01] MEDS: MAG SULF 1GM/100ML (MAG RUN) 1 GM in IV 1 EA IV SCH (09:29)
[2024-06-01 12:00] VITALS: BP 140/78; TEMP 97.6; O2SAT 100
[2024-06-01] MEDS: LORazepam 0.5 MG TAB PO PRN (13:29)
[2024-06-01 20:26] VITALS: BP 137/73; TEMP 97.9; O2SAT 92
[2024-06-01] MEDS: methylPREDNISolone 40MG 1ML VIAL IV SCH (22:14)
[2024-06-02 04:00] VITALS: BP 135/73; TEMP 97.9; O2SAT 93
[2024-06-02 06:15] LABS: HEMATOCRIT 46.5 % (36.0-47.0); HEMOGLOBIN 14.6 g/dl (12.0-15.5); MEAN CORPUSCULAR HEMOGLOBIN 30.2 pg (27.0-33.0); MEAN CORPUSCULAR HGB CONC 31.4 g/dl (32.0-36.5); MEAN CORPUSCULAR VOLUME 96.3 fl (80.0-96.0); PLATELET COUNT, AUTOMATED 229 10^3/uL (150-450); RED BLOOD COUNT 4.83 10^6/uL (4.00-5.40); WHITE BLOOD COUNT 9.4 10^3/uL (4.0-10.0)
[2024-06-02 06:48] LABS: BLOOD UREA NITROGEN 30 MG/DL (9-23); CALCIUM LEVEL 9.6 MG/DL (8.3-10.6); CARBON DIOXIDE LEVEL > 40.0 MMOL/L (20-31); CHLORIDE LEVEL 101 MMOL/L (98-107); GLOMERULAR FILTRATION RATE > 60.0 (>39); GLUCOSE, FASTING 114 MG/DL (74-106); MAGNESIUM LEVEL 1.8 MG/DL (1.8-2.4); POTASSIUM SERUM 4.7 MMOL/L (3.5-5.1); SODIUM LEVEL 144 MMOL/L (136-145)
[2024-06-02] MEDS ORDERED: BENZ1LOZ9 PO (11:24)
[2024-06-02] MEDS ORDERED: AZIT-12 PO (11:24)
[2024-06-02] MEDS ORDERED: PRED20TA PO (11:24)
[2024-06-02] MEDS ORDERED: DOXY-440 PO (11:25)
[2024-06-02 12:00] VITALS: BP 128/70; TEMP 97.8; O2SAT 89
== END 2024-06-02 13:00 | disposition home health service (06) | DRG 189 ==
LOC: EDBD 20:51 → M ED 20:51 → M ED INP 05-29 02:37 → M ICU 05-29 03:40 → M MS5PR 05-30 17:15
PROVIDERS: ADMIT Student in an Organized Health Care Education/Training Program; ATTEND Hospitalist
DX: J96.22 Acute and chronic respiratory failure with hypercapnia (principal); G93.41 Metabolic encephalopathy; J44.1 Chronic obstructive pulmonary disease with (acute) exacerbation; K76.6 Portal hypertension; I50.32 Chronic diastolic (congestive) heart failure; E87.1 Hypo-osmolality and hyponatremia; J96.21 Acute and chronic respiratory failure with hypoxia; E03.9 Hypothyroidism, unspecified; G43.909 Migraine, unspecified, not intractable, without status migrainosus; I11.0 Hypertensive heart disease with heart failure; G47.33 Obstructive sleep apnea (adult) (pediatric); K21.9 Gastro-esophageal reflux disease without esophagitis; F17.200 Nicotine dependence, unspecified, uncomplicated; J43.2 Centrilobular emphysema; Z66 Do not resuscitate; N20.0 Calculus of kidney; K74.60 Unspecified cirrhosis of liver; M62.838 Other muscle spasm; G25.81 Restless legs syndrome; N32.81 Overactive bladder; F03.90 Unspecified dementia, unspecified severity, without behavioral disturbance, psychotic disturbance, mood disturbance, and anxiety; E78.5 Hyperlipidemia, unspecified; J06.9 Acute upper respiratory infection, unspecified; F41.9 Anxiety disorder, unspecified; B97.89 Other viral agents as the cause of diseases classified elsewhere; B97.10 Unspecified enterovirus as the cause of diseases classified elsewhere; Z92.3 Personal history of irradiation; Z99.81 Dependence on supplemental oxygen; Z79.890 Hormone replacement therapy; Z79.52 Long term (current) use of systemic steroids; Z79.899 Other long term (current) drug therapy; Z85.118 Personal history of other malignant neoplasm of bronchus and lung

== ENCOUNTER 2024-07-14 20:58 | Inpatient (IN) | payer MEDICARE, OTHER ==
[~2024-07-14] VITALS: Ht 165.1 cm; Wt 96.0 kg
[~2024-07-14 20:58] MED LIST changes: +ARFO15VI18 INH; +BENZ1LOZ9 PO; +DOXY-440 PO; +YUPE175S INH
[2024-07-14] MEDS: IPRATROPIUM 0.5MG/ALBUTEROL 2.5MG INH SOL UD 3ML (DUONEB) NEB ONE (21:15)
[2024-07-14 21:35] LABS: BASO # 0.1 10^3/uL (0.0-0.2); BASO % 0.6 % (0.0-1.0); EOS # 0.1 10^3/uL (0.0-0.5); EOS % 0.9 % (0.0-3.0); HEMATOCRIT 48.9 % (36.0-47.0); HEMOGLOBIN 14.6 g/dl (12.0-15.5); LYMPH # 1.2 10^3/uL (1.5-5.0); MEAN CORPUSCULAR HEMOGLOBIN 30.9 pg (27.0-33.0); MEAN CORPUSCULAR HGB CONC 29.9 g/dl (32.0-36.5); MEAN CORPUSCULAR VOLUME 103.6 fl (80.0-96.0); MONO % 9.4 % (2.0-8.0); NEUTROPHILS # 8.4 10^3/uL (1.5-8.5); NEUTROPHILS % 77.7 % (36.0-66.0); PLATELET COUNT, AUTOMATED 241 10^3/uL (150-450); RED BLOOD COUNT 4.72 10^6/uL (4.00-5.40); WHITE BLOOD COUNT 10.9 10^3/uL (4.0-10.0)
[2024-07-14 21:49] LABS: VENOUS BASE EXCESS 6.8 (-2.0-2.0); VENOUS HCO3 35.1 MMOL/L (23.0-27.0); VENOUS PARTIAL PRESSURE CO2 66.7 mmHg (38.0-50.0); VENOUS PARTIAL PRESSURE O2 86.8 mmHg (30.0-50.0); VENOUS PH 7.339 UNITS (7.330-7.430); VENOUS STANDARD HCO3 30.7 MMOL/L; VENOUS TOTAL CO2 37.1 MMOL/L (24.0-28.0)
[2024-07-14 22:59] LABS: ETHYL ALCOHOL (ETHANOL) < 0.003 % (0.000-0.010)
[2024-07-14 23:01] LABS: SALICYLATE LEVEL < 3.0 MG/DL (<30)
[2024-07-14 23:06] LABS: ALBUMIN 2.5 G/DL (3.2-5.2); ALKALINE PHOSPHATASE 97 U/L (35-104); ALT/SGPT 33 U/L (7.0-40); AST/SGOT 43 U/L (<34); BILIRUBIN,DIRECT 0.1 MG/DL (<0.4); BILIRUBIN,TOTAL 0.3 MG/DL (0.3-1.2); BLOOD UREA NITROGEN 19 MG/DL (9-23); CALCIUM LEVEL 9.3 MG/DL (8.3-10.6); CARBON DIOXIDE LEVEL > 40.0 MMOL/L (20-31); CHLORIDE LEVEL 96 MMOL/L (98-107); CPK CREATINE PHOSPHOKINASE 122 U/L (34-145); GLOMERULAR FILTRATION RATE > 60.0 (>39); GLUCOSE, FASTING 94 MG/DL (74-106); MB/CK RELATIVE INDEX 2.45 (< OR =4); POTASSIUM SERUM 5.5 MMOL/L (3.5-5.1); SODIUM LEVEL 143 MMOL/L (136-145); THYROID STIMULATING HORMONE 0.465 uIU/ML (0.55-4.78); TOTAL PROTEIN 5.9 G/DL (5.7-8.2)
[2024-07-14] MEDS ORDERED: ISOVUE-370 76% 100ML VIAL As Ordered ONE (23:40)
[2024-07-14 23:59] LABS: CK-MB VALUE MASS 2.9 NG/ML (<3.6)
[2024-07-15] VITALS (9 sets, daily range): BP systolic 124; BP diastolic 58; TEMP 98.8; O2SAT 61–91
[2024-07-15 00:02] LABS: MB/CK RELATIVE INDEX 2.54 (< OR =4)
[2024-07-15 01:33] LABS: CK-MB VALUE MASS 3.2 NG/ML (<3.6)
[2024-07-15 01:34] LABS: MB/CK RELATIVE INDEX 3.07 (< OR =4)
[2024-07-15] MEDS: PIPERACILLIN/TAZOBACTAM SOD 4.5 GM in DEXTROSE 5% (D5W) ADV/MINI-BAG 50 ML IV ONE (02:59)
[2024-07-15] MEDS ORDERED: BROV15NE INH (04:31)
[2024-07-15] MEDS ORDERED: HOME MED LIST COMPLETE! XX SCH (04:35)
[2024-07-15] MEDS: SOD POLYSTYRENE SULFONATE SUSP 15GM 60ML UD PO ONE (06:20)
[2024-07-15] MEDS: DOXYCYCLINE HYCLATE 100 MG in DEXTROSE 5% (D5W) MINI-BAG PLU 100 ML IV SCH (06:23)
[2024-07-15 06:24] LABS: HEMATOCRIT 45.3 % (36.0-47.0); HEMOGLOBIN 13.3 g/dl (12.0-15.5); MEAN CORPUSCULAR HEMOGLOBIN 30.7 pg (27.0-33.0); MEAN CORPUSCULAR HGB CONC 29.4 g/dl (32.0-36.5); MEAN CORPUSCULAR VOLUME 104.6 fl (80.0-96.0); PLATELET COUNT, AUTOMATED 232 10^3/uL (150-450); RED BLOOD COUNT 4.33 10^6/uL (4.00-5.40); WHITE BLOOD COUNT 10.7 10^3/uL (4.0-10.0)
[2024-07-15 06:58] LABS: ALBUMIN 2.3 G/DL (3.2-5.2); ALKALINE PHOSPHATASE 88 U/L (35-104); ALT/SGPT 29 U/L (7.0-40); AST/SGOT 35 U/L (<34); BILIRUBIN,TOTAL 0.4 MG/DL (0.3-1.2); BLOOD UREA NITROGEN 19 MG/DL (9-23); CARBON DIOXIDE LEVEL > 40.0 MMOL/L (20-31); CHLORIDE LEVEL 95 MMOL/L (98-107); CREATININE FOR GFR 0.77 MG/DL (0.55-1.30); GLOMERULAR FILTRATION RATE > 60.0 (>39); GLUCOSE, FASTING 89 MG/DL (74-106); SODIUM LEVEL 142 MMOL/L (136-145); TOTAL PROTEIN 5.5 G/DL (5.7-8.2)
[2024-07-15] MEDS: SYMBICORT 160/4.5MCG INHALER 6GM INH SCH (07:26)
[2024-07-15] MEDS: IPRATROPIUM 0.5MG/ALBUTEROL 2.5MG INH SOL UD 3ML (DUONEB) NEB SCH (07:26)
[2024-07-15 08:49] LABS: ABG BASE EXCESS 10.1 (-2.0-2.0); ABG HCO3 43.6 MMOL/L (22.0-26.0); ABG O2 SATURATION 90.7 % (95.0-99.0); ABG PARTIAL PRESSURE O2 63.4 mmHg (75.0-100.0); ABG STANDARD HCO3 33.7 MMOL/L. (22.0-26.0); ABG TOTAL CO2 47.2 MMOL/L (23.0-31.0)
[2024-07-15 08:55] LABS: ABG PARTIAL PRESSURE CO2 117.3 mmHg (35.0-45.0); ABG pH (ARTERIAL) 7.188 UNITS (7.350-7.450)
[2024-07-15] MEDS: LACTULOSE 20GM/30ML SYRUP UDC PO SCH (09:00)
[2024-07-15] MEDS ORDERED: predniSONE 20 MG TAB PO SCH (09:00)
[2024-07-15] MEDS: ENOXAPARIN 40MG/0.4ML SYRINGE (J1650 PER 10MG) SC SCH (09:27)
[2024-07-15] MEDS: methylPREDNISolone 40MG 1ML VIAL IV SCH (09:28)
[2024-07-15] MEDS: PIPERACILLIN/TAZOBACTAM SOD 4.5 GM in DEXTROSE 5% (D5W) ADV/MINI-BAG 50 ML IV SCH (09:28)
[2024-07-15] MEDS: PATIROMER SORBITEX CALCIUM 8.4 GM POWDER PACKET (VELTASSA) PO ONE (10:00)
[2024-07-15] MEDS: LEVOTHYROXINE 125MCG TABLET (0.125MG) PO SCH (12:13)
[2024-07-15] MEDS: MEMANTINE 5MG TABLET (NAMENDA) PO SCH (12:14)
[2024-07-15] MEDS: OMEPRAZOLE 20MG CAP PO SCH (12:14)
[2024-07-15] MEDS: oxyBUTYnin *DITROPAN XL* 5 MG TABCR PO SCH (12:14)
[2024-07-15] MEDS: FUROSEMIDE 20 MG TAB PO SCH (12:14)
[2024-07-15 12:20] LABS: PROCALCITONIN 0.28 ng/ml
[2024-07-15 12:34] LABS: ABG BASE EXCESS 14.7 (-2.0-2.0); ABG HCO3 46.5 MMOL/L (22.0-26.0); ABG O2 SATURATION 96.2 % (95.0-99.0); ABG PARTIAL PRESSURE O2 84.1 mmHg (75.0-100.0); ABG STANDARD HCO3 38.6 MMOL/L. (22.0-26.0); ABG TOTAL CO2 49.6 MMOL/L (23.0-31.0); ABG pH (ARTERIAL) 7.278 UNITS (7.350-7.450)
[2024-07-15 12:36] LABS: ABG PARTIAL PRESSURE CO2 101.7 mmHg (35.0-45.0)
[2024-07-15] MEDS ORDERED: ONDANSETRON 4MG 2ML VIAL IV PRN (15:55)
[2024-07-15] MEDS ORDERED: HYOSCYAMINE SULFATE 0.125 MG SUBL TABLET PO PRN (15:55)
[2024-07-15] MEDS ORDERED: ATROPINE SULFATE 1% OPHTH SOLN 2ML BTL SL PRN (15:55)
[2024-07-15] MEDS: MORPHINE 2 MG/ML 1ML VIAL IV SCH (20:03)
[2024-07-15] MEDS: NICOTINE 21MG/24HR 1 EA TRANSDERMAL TD SCH (20:23)
[2024-07-15] MEDS ORDERED: ASPIRIN 81MG ENTERIC TABLET PO SCH (21:00)
[2024-07-15] MEDS ORDERED: rOPINIRole 2MG TAB PO SCH (21:00)
[2024-07-15] MEDS ORDERED: MONTELUKAST 10 MG TAB PO SCH (21:00)
[2024-07-15] MEDS ORDERED: ATORVASTATIN 20 MG TAB PO SCH (21:00)
[2024-07-15] MEDS: LORazepam 2 MG/ML 1ML VIAL IV PRN (21:45)
[2024-07-16] MEDS ORDERED: TIOTROPIUM INHALER/CAPSULE (SPIRIVA) INH SCH (08:00)
[2024-07-16] MEDS: MORPHINE 2 MG/ML 1ML VIAL IV PRN (11:56)
== END 2024-07-17 15:45 | disposition expired | DRG 193 ==
LOC: M ED 20:58 → EDBD 20:58 → M ED INP 07-15 02:40 → M ICU 07-15 07:47 → M MS5PR 07-15 21:28
PROVIDERS: ADMIT Family Medicine; ATTEND Internal Medicine
DX: J18.9 Pneumonia, unspecified organism (principal); I21.A1 Myocardial infarction type 2; G93.41 Metabolic encephalopathy; J96.21 Acute and chronic respiratory failure with hypoxia; J96.22 Acute and chronic respiratory failure with hypercapnia; J44.0 Chronic obstructive pulmonary disease with (acute) lower respiratory infection; I50.32 Chronic diastolic (congestive) heart failure; J44.1 Chronic obstructive pulmonary disease with (acute) exacerbation; J91.8 Pleural effusion in other conditions classified elsewhere; E87.4 Mixed disorder of acid-base balance; J31.0 Chronic rhinitis; I73.9 Peripheral vascular disease, unspecified; E03.9 Hypothyroidism, unspecified; G47.33 Obstructive sleep apnea (adult) (pediatric); E78.5 Hyperlipidemia, unspecified; K21.9 Gastro-esophageal reflux disease without esophagitis; Z51.5 Encounter for palliative care; I11.0 Hypertensive heart disease with heart failure; Z66 Do not resuscitate; N39.41 Urge incontinence; I27.23 Pulmonary hypertension due to lung diseases and hypoxia; F17.200 Nicotine dependence, unspecified, uncomplicated; G25.81 Restless legs syndrome; I25.10 Atherosclerotic heart disease of native coronary artery without angina pectoris; G43.909 Migraine, unspecified, not intractable, without status migrainosus; F03.90 Unspecified dementia, unspecified severity, without behavioral disturbance, psychotic disturbance, mood disturbance, and anxiety; Z85.118 Personal history of other malignant neoplasm of bronchus and lung; Z99.81 Dependence on supplemental oxygen; E87.5 Hyperkalemia; Z79.82 Long term (current) use of aspirin; Z79.890 Hormone replacement therapy; Z79.899 Other long term (current) drug therapy; Z92.3 Personal history of irradiation